=== PATIENT | female | born 1970 | race Caucasian/White ===

== ENCOUNTER 2017-10-10 10:14 | Day surgery (SDC) | payer OTHER | END 2017-10-10 14:02 | disposition home or self-care (01) | LOC: SDC 10:14 | PROVIDERS: ATTEND Family Medicine | DX: Z53.9 Procedure and treatment not carried out, unspecified reason (principal) ==

== ENCOUNTER 2017-12-17 06:49 | Day surgery (SDC) | payer OTHER ==
[~2017-12-17 06:49] MED LIST: Lactated Ringers 1,000 ML IV SCH
[2017-12-17] MEDS ORDERED: DIPRIVAN 200 MG/20 ML IV ONE (06:50)
[2017-12-17] MEDS ORDERED: Ketamine HCl 50 MG/ML IV ONE (06:50)
[2017-12-17 08:40] VITALS: BP 126/68; PULSE 81
[2017-12-17 09:22] VITALS: O2SAT 96
--- NOTE | 2017-12-17 10:15 | OP ---
SURGERY DATE/TIME: 12/17/2017 0800 PREOPERATIVE DIAGNOSIS: Epigastric abdominal pain. POSTOPERATIVE DIAGNOSIS: Mild gastritis. PROCEDURE: EGD. SURGEON: Moustapha Aguilar M.D. ANESTHESIA: MAC by Thang Smith CRNA. ESTIMATED BLOOD LOSS: Minimal. SPECIMENS: Two cold forceps biopsies were taken from the gastric antrum and sent for Helicobacter pylori testing. DESCRIPTION OF PROCEDURE: After informed written consent was obtained, the patient was taken to the endoscopy suite. She underwent monitored anesthesia and a bite block was inserted. The endoscope was inserted into the posterior oropharynx and under direct visualization the esophagus was easily traversed. There were no obvious mucosal abnormalities. Upon entering the stomach there was a normal rugated gastric mucosa. There were some mild gastritis-type changes in the gastric antrum but no obvious ulcerations or bleeding were present. Pylorus was traversed and the first and second portions of the duodenum within normal limits. Two cold forceps biopsies were taken from the gastric antrum and sent for Helicobacter pylori testing with minimal bleeding from the sites following removal. No other gross mucosal abnormalities were appreciable on withdrawal. The scope was removed and the patient was transferred to the recovery room in excellent condition. She had been advised to follow up in one week for pathology results.
== END 2017-12-17 09:37 | disposition home or self-care (01) ==
LOC: SDC 06:49
PROVIDERS: ATTEND Family Medicine
PROC: 0DB78ZX Excision of Stomach, Pylorus, Via Natural or Artificial Opening Endoscopic, Diagnostic (ICD-10-PCS; principal; 2017-12-17)
DX: K29.70 Gastritis, unspecified, without bleeding (principal); E11.9 Type 2 diabetes mellitus without complications; I25.10 Atherosclerotic heart disease of native coronary artery without angina pectoris
CPT/HCPCS: 88305; J2704

== ENCOUNTER 2018-01-17 04:40 | Emergency (ER) | payer OTHER ==
[2018-01-17] MEDS ORDERED: Sodium Chloride 0.9% 1000 ML 1,000 ML IV SCH (05:30)
[2018-01-17] MEDS ORDERED: Zofran 4 MG/2 ML VIAL IV ONE (05:32)
--- NOTE | 2018-01-17 05:32 | ERPHSYRPT ---
- History of Present Illness Historian: patient Exam Limitations: clinical condition Patient Subjective Stated Complaint: pt states she has been nauseated since 0100 and is having pain along her spine accompanied by a warm sensation up her spine. Triage Nursing Assessment: pt alert and oriented, asnwers questions approp. pt ambulatory with steady gait ntoed. respirations nonlabored. abd soft, obese. pt reports tenderness in rt upper quad with light palpation. bowel sounds present. Timing/Duration: today Activities at Onset: none Quality: sharpness Abdominal Pain Onset Location: epigastric Pain Radiation: no radiation Severity of Pain-Max: moderate Severity of Pain-Current: moderate Modifying Factors: Improves With: nothing Associated Symptoms: back Previous symptoms: same symptoms as today Hx Tetanus, Diphtheria Vaccination/Date Given: Yes Hx Influenza Vaccination/Date Given: No Hx Pneumococcal Vaccination/Date Given: No Immunizations Up to Date: Yes <MARLENY GOMEZ - Last Filed: 01/17/18 06:56> <JEYSON DOS SANTOS - Last Filed: 01/17/18 07:44> - History of Present Illness Time Seen by Provider: 01/17/18 05:03 Physician History: PATIENT WITH A HISTORY OF TYPE 2 DIABETES AND CORONARY ARTERY DISEASE WHO COMPLAINS OF ACUTE ONSET OF NAUSEA SINCE 1PM ASSOCIATED WITH LEFT LOWER ABDOMINAL PAINS. PATIENT ALSO COMPLAINS OF UPPER ABDOMINAL PAIN. PATIENT 1 MONTH POST UPPER ENDOSCOPY WITH GASTRIC BIOPSY FOR CHRONIC GASTRITIS, NO EVIDENCE OF H PYLORI. (MARLENY GOMEZ) Allergies/Adverse Reactions: aspirin Allergy (Mild, Verified 01/17/18 05:09) Sulfa (Sulfonamide Antibiotics) Allergy (Mild, Verified 01/17/18 05:09) shellfish derived Allergy (Verified 01/17/18 05:09) Itching rash Home Medications: Liraglutide [Victoza 2-Luis] 1.8 mg SQ DAILY 11/02/14 [History] Losartan Potassium 25 mg PO DAILY 08/02/15 [History] Cetirizine HCl 10 mg PO DAILY 05/02/16 [History] Diltiazem HCl [Diltiazem 12Hr ER] 60 mg PO TID 12/11/17 [History] Insulin Glargine,Hum.rec.anlog [Lantus] 25 unit SQ HS 12/11/17 [History] Insulin Lispro [Humalog Kwikpen U-100] 16 unit SQ TIDWMEALS 12/11/17 [History] Linagliptin [Tradjenta] 5 mg PO DAILY 12/11/17 [History] Pravastatin Sodium 40 mg PO DAILY 12/11/17 [History] raNITIdine HCl [Ranitidine HCl] 150 mg PO BID 12/11/17 [History] Metformin HCl 500 mg [Glucophage 500 MG] 500 mg PO BIDWM 01/17/18 [History ] - Review of Systems Constitutional: No Fever, No Chills Eyes: No Symptoms Ears, Nose, & Throat: No Symptoms Respiratory: No Cough, No Dyspnea Cardiac: No Chest Pain, No Edema, No Syncope Abdominal/Gastrointestinal: Abdominal Pain, Nausea, No Vomiting, No Diarrhea Genitourinary Symptoms: No Dysuria Musculoskeletal: Back Pain, No Neck Pain Skin: No Symptoms, No Rash Neurological: No Symptoms, No Dizziness, No Focal Weakness, No Sensory Changes Psychological: No Symptoms Endocrine: No Symptoms All Other Systems: Reviewed and Negative <MARLENY GOMEZ - Last Filed: 01/17/18 06:56> - Past Medical History Pertinent Past Medical History: Yes Neurological History: No Pertinent History ENT History: No Pertinent History Cardiac History: Arrhythmia, Coronary Artery Disease, High Cholesterol, Hypertension, Myocardial Infarction ([place]) Respiratory History: No Pertinent History Endocrine Medical History: Diabetes Type II Musculoskeletal History: No Pertinent History GI Medical History: No Pertinent History History: No Pertinent History Psycho-Social History: No Pertinent History Female Reproductive Disorders: No Pertinent History Other Medical History: "spots on the thyroid" - Past Surgical History Past Surgical History: Yes Neuro Surgical History: No Pertinent History Cardiac: Cardiac Catheterization, Cardiac Stent, Pacemaker Respiratory: No Pertinent History Gastrointestinal: Cholecystectomy Genitourinary: No Pertinent History Musculoskeletal: No Pertinent History Female Surgical History: Section Other Surgical History: HEART CATH AND STENT IN MAY 2013 - Social History Smoking Status: Current some day smoker How long have you smoked: 39 yrs Exposure to second hand smoke: Yes Drug Use: none Patient Lives Alone: No - Female History Hx Last Menstrual Period: post Hx Now: No <MARLENY GOMEZ - Last Filed: 01/17/18 06:56> - Physical Exam General Appearance: no apparent distress, alert Eye Exam: PERRL/EOMI, eyes nml inspection Ears, Nose, Throat Exam: normal ENT inspection, pharynx normal, moist mucous membranes Neck Exam: normal inspection, non-tender, supple, full range of motion Respiratory Exam: normal breath sounds, lungs clear, No respiratory distress Cardiovascular Exam: regular rate/rhythm, normal heart sounds Gastrointestinal/Abdomen Exam: soft, normal bowel sounds, tenderness (MODERATE EPIGASTRIC TENDERNESS, NO GUARDING OR REBOUND TENDERNESS), No mass Back Exam: normal inspection, normal range of motion, point tenderness (OVER LEFT LOWER PELVIS ADJACENT TO LEFT SACROILIAC JOINT), other (NO CVA TENDERNESS, NO THORACIC OR LUMBAR TENDERNESS), No CVA tenderness, No vertebral tenderness Extremity Exam: normal inspection, normal range of motion, pelvis stable Neurologic Exam: alert, oriented x 3, cooperative, normal mood/affect, nml cerebellar function, sensation nml, No motor deficits Skin Exam: normal color, warm, dry SpO2 Interpretation: normal SpO2: 95 Oxygen Delivery: Room Air <MARLENY GOMEZ - Last Filed: 01/17/18 06:56> - Nursing Vital Signs Nursing Vital Signs: Initial Vital Signs Temperature 98.1 F 01/17/18 04:59 Pulse Rate 100 H 01/17/18 04:59 Respiratory Rate 18 01/17/18 04:59 Blood Pressure 142/91 01/17/18 04:59 O2 Sat by Pulse Oximetry 95 01/17/18 04:59 Pain Scale Pain Intensity 5 - Course Nursing assessment & vital signs reviewed: Yes - CT Exams Abdomen/Pelvis CT Interpretation: Discussed w/radiologist, Other (no obstruction, +degen spine , nap) <JEYSON DOS SANTOS - Last Filed: 01/17/18 07:44> Ordered Tests: Active Orders 24 hr Category Date Time Status Clean Catch Urine Specimen STAT Care 01/17/18 05:30 Active IV Insertion STAT Care 01/17/18 05:30 Active ABDOMEN AND PELVIS W/0 CONTRAS [CT] Stat Exams 01/17/18 05:30 Taken AMYLASE Stat Lab 01/17/18 05:25 Completed CBC W DIFF Stat Lab 01/17/18 05:25 Completed CMP Stat Lab 01/17/18 05:25 Completed LIPASE Stat Lab 01/17/18 05:25 Completed UA W/RFX UR CULTURE Stat Lab 01/17/18 07:30 Completed Urine Triage Profile Stat Lab 01/17/18 05:30 Ordered Medication Summary Generic Name Dose Route Start Last Admin Trade Name Freq PRN Reason Stop Dose Admin Sodium Chloride 1,000 mls @ 50 mls/hr 01/17/18 05:30 01/17/18 05:45 Sodium Chloride 0.9% 1000 Ml IV 02/16/18 05:29 50 mls/hr .Q20H NADINE Administration Discontinued Medications Generic Name Dose Route Start Last Admin Trade Name Freq PRN Reason Stop Dose Admin Ondansetron HCl 4 mg 01/17/18 05:32 01/17/18 05:45 Zofran 4 Mg/2 Ml Vial IV 01/17/18 05:33 4 mg STAT ONE Administration Ondansetron HCl Confirm 01/17/18 05:42 Zofran 4 Mg/2 Ml Vial Administered 01/17/18 05:43 Dose 4 mg .ROUTE .[facility] [employer]-MED ONE Lab/Rad Data: Laboratory Result Diagrams 01/17/18 05:25 01/17/18 05:25 Laboratory Results 01/17/18 01/17/18 01/17/18 Range/Units 07:30 05:25 05:25 WBC 8.7 (4.0-10.5) K/mm3 RBC 5.17 (4.1-5.4) M/mm3 Hgb 13.4 (12.0-16.0) gm/dl Hct 41.0 (35-47) % MCV 79.3 (78-100) fl MCH 25.9 L (26-32) pg MCHC 32.7 (32-36) g/dl RDW 14.7 H (11.5-14.0) % Plt Count 214 (150-450) K/mm3 MPV 10.7 H (6-9.5) fl Gran % 78.9 H (36.0-66.0) % Eos # (Auto) 0.05 (0-0.5) Absolute Lymphs (auto) 1.41 (1.0-4.6) Absolute Monos (auto) 0.37 (0.0-1.3) Lymphocytes % 16.2 L (24.0-44.0) % Monocytes % 4.2 (0.0-12.0) % Eosinophils % 0.6 (0.00-5.0) % Basophils % 0.1 (0.0-0.4) % Absolute Granulocytes 6.89 (1.4-6.9) Basophils # 0.01 (0-0.4) Sodium 140 (137-145) mmol/L Potassium 3.9 (3.5-5.1) mmol/L Chloride 103 (98-107) mmol/L Carbon Dioxide 25 (22-30) mmol/L Anion Gap 15.2 H (5-15) MEQ/L BUN 19 H (7-17) mg/dL Creatinine 0.67 (0.52-1.04) mg/dL Estimated GFR > 60.0 ML/MIN Glucose 221 H (74-106) mg/dL Calcium 9.9 (8.4-10.2) mg/dL Total Bilirubin 0.30 (0.2-1.3) mg/dL AST 15 (14-36) U/L ALT 17 (0-35) U/L Alkaline Phosphatase 107 (38-126) U/L Serum Total Protein 7.0 (6.3-8.2) g/dL Albumin 4.0 (3.5-5.0) g/dL Amylase 40 (30-110) U/L Lipase 71 (23-300) U/L Ur Collection Type VOID Urine Color YELLOW (YELLOW) Urine Appearance CLEAR (CLEAR) Urine pH 5.0 (5-6) Ur Specific [place] 1.020 (1.005-1.025) Urine Protein NEGATIVE (Negative) Urine Ketones NEGATIVE (NEGATIVE) Urine Blood NEGATIVE (0-5) Fredis/ul Urine Nitrite NEGATIVE (NEGATIVE) Urine Bilirubin NEGATIVE (NEGATIVE) Urine Urobilinogen NORMAL (0-1) mg/dL Ur Leukocyte Esterase NEGATIVE (NEGATIVE) Urine Culture Reflexed NO (NO) Urine Glucose 100 (NEGATIVE) mg/dL Specimen Received 01/17/18 0730 <MARLENY GOMEZ - Last Filed: 01/17/18 06:56> - Progress Progress: unchanged Discussed with : Emily Will see patient in: office Counseled pt/family regarding: lab results, diagnosis, need for follow-up, rad results <JEYSON DOS SANTOS - Last Filed: 01/17/18 07:44> - Progress Progress Note: 01/17/18 06:56, IV NORMAL SALINE AT 50ML/HR, ZOFRAN 4MG IV, PATIENT CARE ENDORSED TO DR DOS SANTOS AT 0700 FOR DISPOSITION (MARLENY GOMEZ) <MARLENY GOMEZ - Last Filed: 01/17/18 06:56> - Departure Time of Disposition: 07:41 Departure Disposition: Home Critical Care Time: No <JEYSON DOS SANTOS - Last Filed: 01/17/18 07:44> - Departure Clinical Impression: Back pain Qualifiers: Back pain location: low back pain Chronicity: unspecified Back pain laterality : unspecified Sciatica presence: unspecified whether sciatica present Qualified Code(s): M54.5 - Low back pain Condition: Stable Referrals: GABBY SEAY [Primary Care Provider] - Instructions: Low Back Pain (DC) Additional Instructions: rest, tramadol warnings, see your doctor 1 to 2 days, return if worse Prescriptions: Tramadol HCl 50 mg [Ultram 50 mg] 50 mg PO Q6H PRN PRN 4 Days #10 tablet PRN Reason: Mild To Moderate Pain
[2018-01-17] MEDS ORDERED: Sodium Chloride 0.9% 1000 ML 1,000 ML ONE (05:42)
[2018-01-17] MEDS ORDERED: Zofran 4 MG/2 ML VIAL ONE (05:42)
[2018-01-17 05:47] LABS: BASOPHIL % 0.1 % (0.0-0.4); Basophil (Absolute #) 0.01 (0-0.4); Eosinophil % 0.6 % (0.00-5.0); Eosinophil (Absolute #) 0.05 (0-0.5); Granulocyte Absolute (ANC) 6.89 (1.4-6.9); Granulocytes % 78.9 % (36.0-66.0); Hemoglobin 13.4 gm/dl (12.0-16.0); Lymphocyte (Absolute #) 1.41 (1.0-4.6); Lymphocytes % 16.2 % (24.0-44.0); Mean Cell Volume 79.3 fl (78-100); Mean Corpuscular Hemoglobin 25.9 pg (26-32); Mean Corpuscular Hgb Concent. 32.7 g/dl (32-36); Mean Platelet Volume 10.7 fl (6-9.5); Monocyte (Absolute #) 0.37 (0.0-1.3); Monocytes % 4.2 % (0.0-12.0); Platelet Count 214 K/mm3 (150-450); Red Blood Count 5.17 M/mm3 (4.1-5.4); Red Cell Distribution Width 14.7 % (11.5-14.0); White Blood Count 8.7 K/mm3 (4.0-10.5)
[2018-01-17 06:00] LABS: ALKALINE PHOSPHATASE 107 U/L (38-126); AMYLASE 40 U/L (30-110); ANION GAP 15.2 MEQ/L (5-15); BLOOD UREA NITROGEN 19 mg/dL (7-17); CHLORIDE 103 mmol/L (98-107); Calcium 9.9 mg/dL (8.4-10.2); Carbon Dioxide 25 mmol/L (22-30); Creatinine 1 0.67 mg/dL (0.52-1.04); Glucose 221 mg/dL (74-106); LIPASE 71 U/L (23-300); Potassium 3.9 mmol/L (3.5-5.1); SGOT/AST 15 U/L (14-36); SODIUM 140 mmol/L (137-145)
[2018-01-17 06:07] LABS: SGPT/ALT 17 U/L (0-35)
[2018-01-17 06:59] VITALS: O2SAT 95
[2018-01-17 07:34] LABS: Appearance CLEAR (CLEAR); Glucose 100 mg/dL (NEGATIVE); Leukocyte Esterase NEGATIVE (NEGATIVE); Nitrite NEGATIVE (NEGATIVE); Protein,Urine Dip NEGATIVE (Negative)
[2018-01-17 07:35] LABS: Bilirubin NEGATIVE (NEGATIVE); Blood NEGATIVE Ery/ul (0-5); Ketones NEGATIVE (NEGATIVE); Urobilinogen NORMAL mg/dL (0-1)
[2018-01-17 07:58] LABS: Amphetamine,Urine NEGATIVE (NEGATIVE); Barbiturate,Urine NEGATIVE (NEGATIVE); Benzodiazepine,Urine NEGATIVE (NEGATIVE); Cocaine,Urine NEGATIVE (NEGATIVE); Methadone,Urine NEGATIVE (NEGATIVE); Opiate,Urine NEGATIVE (NEGATIVE); PCP,Urine NEGATIVE (NEGATIVE); THC,Urine NEGATIVE (NEGATIVE)
[2018-01-17 07:59] VITALS: BP 110/73; PULSE 86
--- NOTE | 2018-01-17 08:45 | XRAY ---
Indication: Right upper quadrant and left back pain. Nausea. Multiple contiguous axial images obtained through the abdomen and pelvis without contrast as ordered. Comparison: August 03, 2015. Lung bases now demonstrates minimal left base fibrosis/scarring. No infiltrate or effusion. Heart is not enlarged. Stomach is distended with food. Noncontrasted stomach and bowel loops appear nonobstructed. Appendix not seen. Again cholecystectomy. No free fluid/air. Remaining liver, pancreas, spleen, adrenal glands, kidneys, ureters, bladder, uterus, and aorta appear unremarkable for noncontrast exam. Osseous structures intact again with lumbosacral junction degenerative changes. Impression: CT abdomen/pelvis without contrast exam again negative. Comment: Preliminary interpretation was made by [facility]. No discrepancy. CT DI 28.13
== END 2018-01-17 07:59 | disposition home or self-care (01) ==
LOC: ED 04:40
DX: M54.5 Low back pain (principal); R11.0 Nausea; R10.30 Lower abdominal pain, unspecified; R10.10 Upper abdominal pain, unspecified; E11.9 Type 2 diabetes mellitus without complications; Z79.4 Long term (current) use of insulin; Z79.899 Other long term (current) drug therapy
CPT/HCPCS: 36000; 36415; 74176; 80053; 80307; 81002; 82150; 83690; 85025; 96360; 96361; 96374; 99284; J2405

== ENCOUNTER 2019-02-09 00:36 | Emergency (ER) | payer MEDICAID, OTHER ==
[2019-02-09 00:55] VITALS: BP 154/103; PULSE 94; O2SAT 95
[2019-02-09] MEDS ORDERED: LOTRIMIN CREAM 30 GM TP STA (01:01)
--- NOTE | 2019-02-09 01:19 | ERPHSYRPT ---
- History of Present Illness Source: patient Exam Limitations: no limitations Patient Subjective Stated Complaint: Pt c/o rash like itching leasions that started on top of cam feet 2 days ago, spreading up to lower leg. Triage Nursing Assessment: pink/warm/dry, resp easy, a&ox4, steady gait, red rash with difinitive borders noted. Physician History: Pt is a 48 y/o female that presented to the ED with rash on her feet and ankles that is extremly itching. Pt states, she does have dogs living with her. Pt denies all other complains. Timing/Duration: day(s) Quality: itchy Severity: moderate Location: feet Possible Causes: other (pets) Associated Symptoms: rash Allergies/Adverse Reactions: aspirin Allergy (Mild, Verified 02/09/19 00:44) Sulfa (Sulfonamide Antibiotics) Allergy (Mild, Verified 02/09/19 00:44) shellfish derived Allergy (Verified 02/09/19 00:44) Itching rash Home Medications: Liraglutide [Victoza 2-Luis] 1.8 mg SQ DAILY 11/02/14 [History] Losartan Potassium 25 mg PO DAILY 08/02/15 [History] Cetirizine HCl 10 mg PO DAILY 05/02/16 [History] Diltiazem HCl [Diltiazem 12Hr ER] 60 mg PO TID 12/11/17 [History] Insulin Glargine,Hum.rec.anlog [Lantus] 25 unit SQ HS 12/11/17 [History] Insulin Lispro [Humalog Kwikpen U-100] 16 unit SQ TIDWMEALS 12/11/17 [History] Linagliptin [Tradjenta] 5 mg PO DAILY 12/11/17 [History] Pravastatin Sodium 40 mg PO DAILY 12/11/17 [History] raNITIdine HCl [Ranitidine HCl] 150 mg PO BID 12/11/17 [History] Metformin HCl 500 mg [Glucophage 500 MG] 500 mg PO BIDWM 01/17/18 [History ] Hx Tetanus, Diphtheria Vaccination/Date Given: No Hx Influenza Vaccination/Date Given: No Hx Pneumococcal Vaccination/Date Given: No Immunizations Up to Date: No - Review of Systems Constitutional: No Fever, No Chills Musculoskeletal: No Back Pain, No Neck Pain Skin: Pruritis, Other (rash) Neurological: No Dizziness, No Focal Weakness, No Sensory Changes - Past Medical History Pertinent Past Medical History: Yes Neurological History: No Pertinent History ENT History: No Pertinent History Cardiac History: Arrhythmia, Coronary Artery Disease, High Cholesterol, Hypertension, Myocardial Infarction ([place]) Respiratory History: No Pertinent History Endocrine Medical History: Diabetes Type II Musculoskeletal History: No Pertinent History GI Medical History: No Pertinent History History: No Pertinent History Psycho-Social History: No Pertinent History Female Reproductive Disorders: No Pertinent History Other Medical History: "spots on the thyroid" - Past Surgical History Past Surgical History: Yes Neuro Surgical History: No Pertinent History Cardiac: Cardiac Catheterization, Cardiac Stent, Pacemaker Respiratory: No Pertinent History Gastrointestinal: Cholecystectomy Genitourinary: No Pertinent History Musculoskeletal: No Pertinent History Female Surgical History: Section Other Surgical History: HEART CATH AND STENT IN MAY 2013 - Social History Smoking Status: Current every day smoker How long have you smoked: 39 yrs Exposure to second hand smoke: Yes Drug Use: none Patient Lives Alone: No - Female History Hx Now: No - Nursing Vital Signs Nursing Vital Signs: Initial Vital Signs Temperature 98.1 F 02/09/19 00:44 Pulse Rate 94 H 02/09/19 00:44 Respiratory Rate 16 02/09/19 00:44 Blood Pressure 154/103 02/09/19 00:44 O2 Sat by Pulse Oximetry 95 02/09/19 00:44 Pain Scale Pain Intensity 0 - Physical Exam General Appearance: no apparent distress, alert Skin Exam: other (rash that is red ring with redness and central clearing, over ankles and frrt) SpO2: 95 Ordered Tests: Medication Summary Discontinued Medications Generic Name Dose Route Start Last Admin Trade Name Wandy PRN Reason Stop Dose Admin Clotrimazole 30 gm 02/09/19 01:01 02/09/19 01:06 Lotrimin Cream 30 Gm TP 02/09/19 01:02 30 gm STAT STA Administration - Progress Progress: unchanged Progress Note: 02/09/19 01:17 Pt was seen and examined. Rash that looks like ringworm. Pt will have Lotrimin placed on areas and she should continue pplying TID as long as any rash and itching continues. Pt should check her pets as well. Discussed with : Emily Will see patient in: office Counseled pt/family regarding: need for follow-up - Departure Departure Disposition: Home Clinical Impression: Ringworm of foot Condition: Stable Critical Care Time: No Referrals: GABBY SEAY [Primary Care Provider] - Additional Instructions: Apply Lotrimin cream on lesions three times daily. F/U with PCP. Check your pets as well and treat as needed.
== END 2019-02-09 01:27 | disposition home or self-care (01) ==
LOC: ED 00:36
DX: B35.3 Tinea pedis (principal)
CPT/HCPCS: 99283; A9270-GY

== ENCOUNTER 2020-01-07 23:07 | Emergency (ER) | payer OTHER ==
--- NOTE | 2020-01-07 23:10 | ERPHSYRPT ---
- History of Present Illness Time Seen by Provider: 01/07/20 23:10 Source: patient Physician History: This is a 49-year-old obese diabetic female who stated that she began coughing yesterday and that resolved. This morning she began having mild headache and has worsened throughout the day. She also has had a sore throat. She has not had a fever. She is not short of breath. Again, her cough has resolved. She has no nausea vomiting or diarrhea. The headache is described more as a pressure in the sinuses. She also states she has bilateral earaches. Timing/Duration: yesterday Quality: aching Head Pain Location: frontal (Left side) Severity of Pain-Max: moderate Severity of Pain-Current: moderate Recent Head Trauma: no recent headache/trauma Modifying Factors: Improves With: exposure to light, noise Associated Symptoms: nasal congestion, sensitive to light, No fever/chills, No loss of consciousness, No nausea/vomiting, No neck pain, No stiff neck Previous symptoms: no prior history Allergies/Adverse Reactions: aspirin Allergy (Mild, Verified 01/07/20 23:30) Sulfa (Sulfonamide Antibiotics) Allergy (Mild, Verified 01/07/20 23:30) shellfish derived Allergy (Verified 01/07/20 23:30) Itching rash Home Medications: Losartan Potassium 25 mg PO DAILY 08/02/15 [History] Cetirizine HCl 10 mg PO DAILY 05/02/16 [History] Diltiazem HCl [Diltiazem 12Hr ER] 60 mg PO TID 12/11/17 [History] Pravastatin Sodium 40 mg PO DAILY 12/11/17 [History] raNITIdine HCL [Ranitidine HCl] 150 mg PO BID 12/11/17 [History] Metformin HCl 500 mg [Glucophage 500 MG] 500 mg PO BID 01/17/18 [History] Famotidine 20 mg [Pepcid 20 MG] 20 mg PO BID 01/07/20 [History] Insulin Glargine,Hum.rec.anlog [Basaglar Kwikpen U-100] 50 unit SQ HS 01/07/20 [ History] Hx Tetanus, Diphtheria Vaccination/Date Given: No Hx Influenza Vaccination/Date Given: No Hx Pneumococcal Vaccination/Date Given: No Travel Risk - International Travel Have you traveled outside of the country in past 3 weeks: No Have you or anyone close to you been diagnosed with or: No Do your reside in a community with a known COVID-19 case?: Yes If Yes where:: [facility] - Coronavirus Screening Has patient experienced Coronavirus symptoms: No - Review of Systems Constitutional: No Symptoms Eyes: No Symptoms Ears, Nose, & Throat: Ear Pain (Bilateral), Throat Pain (Mild) Respiratory: Cough (Day. Now resolved), No Dyspnea Cardiac: No Chest Pain Abdominal/Gastrointestinal: No Symptoms Genitourinary Symptoms: No Symptoms Musculoskeletal: No Symptoms Skin: No Symptoms Neurological: No Symptoms Psychological: No Symptoms Endocrine: No Symptoms Hematologic/Lymphatic: No Symptoms Immunological/Allergic: No Symptoms All Other Systems: Reviewed and Negative - Past Medical History Pertinent Past Medical History: Yes Neurological History: No Pertinent History ENT History: No Pertinent History Cardiac History: Arrhythmia, Coronary Artery Disease, High Cholesterol, Hypertension, Myocardial Infarction ([place]) Respiratory History: No Pertinent History Endocrine Medical History: Diabetes Type II Musculoskeletal History: No Pertinent History GI Medical History: No Pertinent History History: No Pertinent History Psycho-Social History: No Pertinent History Female Reproductive Disorders: No Pertinent History Other Medical History: "spots on the thyroid" - Past Surgical History Past Surgical History: Yes Neuro Surgical History: No Pertinent History Cardiac: Cardiac Catheterization, Cardiac Stent, Pacemaker Respiratory: No Pertinent History Gastrointestinal: Cholecystectomy Genitourinary: No Pertinent History Musculoskeletal: No Pertinent History Female Surgical History: Section Other Surgical History: HEART CATH AND STENT IN MAY 2013 - Social History Smoking Status: Current every day smoker How long have you smoked: 39 yrs Exposure to second hand smoke: Yes Drug Use: none Patient Lives Alone: No - Nursing Vital Signs Nursing Vital Signs: Initial Vital Signs Temperature 98.0 F 01/07/20 23:19 Pulse Rate 94 H 01/07/20 23:19 Respiratory Rate 18 01/07/20 23:19 Blood Pressure 129/51 01/07/20 23:19 O2 Sat by Pulse Oximetry 95 01/07/20 23:19 Pain Scale Pain Intensity 8 - Physical Exam General Appearance: mild distress, alert, anxiety Eye Exam: PERRL/EOMI, eyes nml inspection Ears, Nose, Throat Exam: normal ENT inspection, moist mucous membranes Neck Exam: normal inspection, non-tender, supple, full range of motion Respiratory Exam: normal breath sounds, lungs clear, airway intact, No chest tenderness, No respiratory distress Cardiovascular Exam: regular rate/rhythm, normal heart sounds, normal peripheral pulses Gastrointestinal/Abdominal Exam: soft, normal bowel sounds, No tenderness Back Exam: normal inspection, normal range of motion, No CVA tenderness, No vertebral tenderness Extremity Exam: normal inspection, normal range of motion, pelvis stable Mental Status Exam: alert, oriented x 3, 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 Exam: normal hearing, normal speech, PERRL Coordination/Gait Exam: normal finger to nose, normal gait Motor/Sensory Exam: no motor deficit, no sensory deficit, no pronator drift Skin Exam: normal color, warm, dry Lymphatic Exam: No adenopathy SpO2 Interpretation: normal O2 Delivery: Room Air - Course Nursing assessment & vital signs reviewed: Yes Ordered Tests: Medication Summary Generic Name Dose Route Start Last Admin Trade Name Freq PRN Reason Stop Dose Admin Prednisone 20 mg 01/08/20 23:40 Deltasone 20 Mg PO 01/08/20 23:41 STAT ONE Discontinued Medications Generic Name Dose Route Start Last Admin Trade Name Freq PRN Reason Stop Dose Admin Hydrocodone Bitart/Acetaminophen 10 ml 01/07/20 23:40 Hydrocodone-Acetamin 2.5-108/5 Ml Solution PO 01/07/20 23:41 STAT STA Azithromycin 500 mg 01/07/20 23:40 Zithromax 250 Mg Tablet PO 01/07/20 23:41 STAT ONE - Progress Progress: re-examined, unchanged Air Movement: good Blood Culture(s) Obtained: No Antibiotics given: Yes Counseled pt/family regarding: lab results, diagnosis, need for follow-up - Departure Departure Disposition: Home Clinical Impression: Upper respiratory infection, Sinusitis Condition: Stable Critical Care Time: No Additional Instructions: Drink plenty of fluids. Take your medication as prescribed. Monitor your blood glucose level closely while taking the steroids. Follow-up with your primary care physician for persistent symptoms. Prescriptions: Azithromycin 250 mg [Zithromax 250 MG TABLET] 250 mg PO ZPACK #6 tablet Hydrocodone Bit/Acetaminophen [Hydrocodone-Acetaminophen Soln] 10 ml PO Q6H # 120 ml Prednisone 10 mg [Deltasone 10 mg] 10 mg PO TID #12 tablet
[2020-01-07] MEDS ORDERED: Zithromax 250 MG TABLET PO ONE (23:40)
[2020-01-07] MEDS ORDERED: HYDROCODONE-ACETAMIN 2.5-108/5 ML SOLUTION PO STA (23:40)
[2020-01-07] MEDS ORDERED: HYDROCODONE-ACETAMIN 2.5-108/5 ML SOLUTION ONE (23:45)
[2020-01-07] MEDS ORDERED: Zithromax 250 MG TABLET ONE (23:45)
[2020-01-07] MEDS ORDERED: DELTASONE 20 MG ONE (23:46)
[2020-01-08 00:06] VITALS: BP 116/66
[2020-01-08 00:21] VITALS: PULSE 92; O2SAT 95
[2020-01-08] MEDS ORDERED: DELTASONE 20 MG PO ONE (23:40)
== END 2020-01-08 00:20 | disposition home or self-care (01) ==
LOC: ED 23:07
DX: J06.9 Acute upper respiratory infection, unspecified (principal); J32.9 Chronic sinusitis, unspecified; I25.10 Atherosclerotic heart disease of native coronary artery without angina pectoris; E78.00 Pure hypercholesterolemia, unspecified; E11.9 Type 2 diabetes mellitus without complications; I10 Essential (primary) hypertension; I25.2 Old myocardial infarction; Z95.0 Presence of cardiac pacemaker; Z72.0 Tobacco use
CPT/HCPCS: 99283; A9270-GY

== ENCOUNTER 2020-05-09 15:16 | Emergency (ER) | payer OTHER ==
--- NOTE | 2020-05-09 16:07 | ERPHSYRPT ---
- History of Present Illness Time Seen by Provider: 05/09/20 15:36 Source: patient Exam Limitations: physical impairment Patient Subjective Stated Complaint: Back pain Triage Nursing Assessment: Patient brought back to ED via w/c and transferred se lf to bed. Patient A+O X 3. Patient's skin pink, warm and dry. Patient complains of mid back pain after moving wrong in her bed Friday. Patient states her pain is constant, sharp pain in the mid back area close to spine 8/10. No visible injuries or bruising noted. Physician History: Patient is a 49-year-old female who presents to our ED for evaluation of thoracolumbar pain. Pain started 4 days ago. Patient states she was in bed and "she twisted wrong" when her pain started. Pain described as a sharp pain that is well localized. Pain occurs with palpation and movement. Pain improved with rest. No blunt trauma. No fever. No change in bowel bladder function. No saddle anesthesia. No recent back procedures. No chest pain or shortness of breath. Pain is mild to moderate in intensity. Pain improved with rest. Patient voices no other complaints concerns at this time. Timing/Duration: day(s) (.) Method of Injury: twisted Quality: sharp Back Pain Location: T-spine, lumbar spine (Pain is at the junction of the thoracolumbar spine. Pain worse at the right paraspinal musculature.) Severity of Pain-Max: moderate Severity of Pain-Current: mild Modifying Factors: Improves With: immobilization, movement, other (She does not take any pain medication.) Associated Symptoms: No fever, No chills, No sweating, No urinary incontinence, No loss of bowel control, No constipation, No nausea, No vomiting, No problems urinating, No light-headedness, No dizziness, No numbness in legs/feet, No weakness, No sensory/motor loss, No tingling in legs/feet, No lower back pain Previous symptoms: same symptoms as today Allergies/Adverse Reactions: aspirin Allergy (Mild, Verified 05/09/20 15:30) Sulfa (Sulfonamide Antibiotics) Allergy (Mild, Verified 05/09/20 15:30) shellfish derived Allergy (Verified 05/09/20 15:30) Itching rash Home Medications: Cetirizine HCl 10 mg PO DAILY 05/02/16 [History] Diltiazem HCl [Diltiazem 12Hr ER] 60 mg PO TID 12/11/17 [History] Pravastatin Sodium 40 mg PO DAILY 12/11/17 [History] Metformin HCl 500 mg [Glucophage 500 MG] 500 mg PO BID 01/17/18 [History] Famotidine 20 mg [Pepcid 20 MG] 20 mg PO BID 01/07/20 [History] Insulin Glargine,Hum.rec.anlog [Basaglar Santosikpen U-100] 50 unit SQ HS 01/07/20 [History] Hx Tetanus, Diphtheria Vaccination/Date Given: No Hx Influenza Vaccination/Date Given: No Hx Pneumococcal Vaccination/Date Given: No Immunizations Up to Date: Yes Travel Risk - International Travel Have you traveled outside of the country in past 3 weeks: No - Coronavirus Screening Are you exhibiting any of the following symptoms?: No Close contact with a COVID-19 positive Pt in past 14-21 Days: No - Review of Systems Constitutional: No Symptoms, No Fever, No Chills Eyes: No Symptoms Ears, Nose, & Throat: No Symptoms Respiratory: No Symptoms, No Cough, No Dyspnea Cardiac: No Symptoms, No Chest Pain, No Edema, No Syncope Abdominal/Gastrointestinal: No Symptoms, No Abdominal Pain, No Nausea, No Vomiting, No Diarrhea Genitourinary Symptoms: No Symptoms, No Dysuria Musculoskeletal: No Symptoms, No Back Pain, No Neck Pain Skin: No Symptoms, No Rash Neurological: No Symptoms, No Dizziness, No Focal Weakness, No Sensory Changes Psychological: No Symptoms Endocrine: No Symptoms Hematologic/Lymphatic: No Symptoms Immunological/Allergic: No Symptoms All Other Systems: Reviewed and Negative - Past Medical History Pertinent Past Medical History: Yes Neurological History: No Pertinent History ENT History: No Pertinent History Cardiac History: Arrhythmia, Coronary Artery Disease, High Cholesterol, Hypertension, Myocardial Infarction (AR) Respiratory History: No Pertinent History Endocrine Medical History: Diabetes Type II Musculoskeletal History: No Pertinent History GI Medical History: No Pertinent History History: No Pertinent History Psycho-Social History: No Pertinent History Female Reproductive Disorders: No Pertinent History Other Medical History: "spots on the thyroid" - Past Surgical History Past Surgical History: Yes Neuro Surgical History: No Pertinent History Cardiac: Cardiac Catheterization, Cardiac Stent, Pacemaker Respiratory: No Pertinent History Gastrointestinal: Cholecystectomy Genitourinary: No Pertinent History Musculoskeletal: No Pertinent History Female Surgical History: Section Other Surgical History: HEART CATH AND STENT IN MAY 2013 - Social History Smoking Status: Current every day smoker How long have you smoked: 39 yrs Exposure to second hand smoke: Yes Drug Use: none Patient Lives Alone: No - Nursing Vital Signs Nursing Vital Signs: Initial Vital Signs Temperature 98.5 F 05/09/20 15:31 Pulse Rate 84 05/09/20 15:31 Respiratory Rate 18 05/09/20 15:31 Blood Pressure 106/62 05/09/20 15:31 O2 Sat by Pulse Oximetry 96 05/09/20 15:31 Pain Scale Pain Intensity 8 - Physical Exam General Appearance: no apparent distress, alert Eye Exam: PERRL/EOMI, eyes nml inspection Neck Exam: normal inspection, non-tender, supple, full range of motion, No meningismus, No midline tenderness Respiratory Exam: normal breath sounds, lungs clear, No respiratory distress Cardiovascular Exam: regular rate/rhythm, normal heart sounds Gastrointestinal Exam: soft, No tenderness, No mass Back Exam: normal inspection, other (Tenderness to palpation at the right upper lumbar lower thoracic paraspinal musculature. Overlying soft tissue intact. No signs of trauma.), No CVA tenderness Extremity Exam: normal inspection, normal range of motion, No calf tenderness, No pedal edema Peripheral Pulses: dorsalis-pedis (R): 2+, dorsalis-pedis (L): 2+ Neurologic Exam: alert, oriented x 3, cooperative, chaperon II-XII nml as tested, normal mood/affect, nml station & gait, sensation nml, No motor deficits Skin Exam: normal color, warm, dry, No rash SpO2 Interpretation: normal SpO2: 96 O2 Delivery: Room Air - Course Nursing assessment & vital signs reviewed: Yes - Radiology Exams T-Spine X-ray Interpretation: Teleradiologist Report (Double curvature scoliosis, mild multilevel endplate spurring. Pulmonary calcified granulomas and left single lead pacemaker. No other bony or articular soft tissue abnormalities.) L-Spine X-ray Interpretation: Teleradiologist Report (Dextroscoliosis centered at L3-L4, multilevel endplate spurring mild L5-S1 disc space narrowing with bilateral degenerative facet arthropathy and cholecystectomy clips. No other bony articular soft tissue abnormalities.) Ordered Tests: Active Orders 24 hr Category Date Time Status LUMBAR LIMITED (2 OR 3 VIEWS) Stat Exams 05/09/20 15:38 Completed THORACIC SPINE (AP,LAT,SWIMM) Stat Exams 05/09/20 15:39 Completed CULTURE,URINE Stat Lab 05/09/20 16:40 Received UA W/RFX UR CULTURE Stat Lab 05/09/20 16:40 Completed Transfer Order Routine Transfer 05/09/20 Ordered Medication Summary Discontinued Medications Generic Name Dose Route Start Last Admin Trade Name Wandy PRN Reason Stop Dose Admin Ketorolac Tromethamine 30 mg 05/09/20 17:22 05/09/20 17:45 Toradol 30 Mg Injection IM 05/09/20 17:23 30 mg STAT ONE Administration Ketorolac Tromethamine Confirm 05/09/20 17:39 Toradol 30 Mg Injection Administered 05/09/20 17:40 Dose 30 mg .ROUTE .[place] ONE Lab/Rad Data: Laboratory Results 05/09/20 Range/Units 16:40 Urine Color EMMIE (YELLOW) Urine Appearance CLOUDY (CLEAR) Urine pH 5.0 (5-6) Ur Specific [place] 1.030 (1.005-1.025) Urine Protein 100 (Negative) Urine Ketones TRACE (NEGATIVE) Urine Blood NEGATIVE (0-5) Fredis/ul Urine Nitrite NEGATIVE (NEGATIVE) Urine Bilirubin SMALL (NEGATIVE) Urine Urobilinogen 2 (0-1) mg/dL Ur Leukocyte Esterase TRACE (NEGATIVE) Urine WBC (Auto) 6-10 (0-5) /HPF Urine RBC (Auto) 0-2 (0-2) /HPF U Hyaline Cast (Auto) 11-25 (0-2) /LPF U Epithel Cells (Auto) FEW (FEW) /HPF Urine Bacteria (Auto) FEW (NEGATIVE) /HPF Urine Mucus (Auto) SLIGHT (NEGATIVE) /HPF Urine Culture Reflexed YES (NO) Urine Glucose NEGATIVE (NEGATIVE) mg/dL - Progress Progress: improved Progress Note: 05/09/20 17:23 05/09/20 17:28 Patient reassessed. Back pain improved. X-ray of thoracic and lumbar spine shows scoliosis and degenerative arthritis. UA suggestive of urinary tract infection. A prescription will be for the patient's pharmacy. Incidental calcified lung granulomas observed. Patient states she is ready for discharge. Patient agrees to follow-up with her primary care doctor within 48 hours for 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 Counseled pt/family regarding: lab results, diagnosis, need for follow-up, rad results - Departure Departure Disposition: Home Clinical Impression: UTI (urinary tract infection), Arthritis, Lumbosacral strain, Calcified granuloma of lung Condition: Stable Critical Care Time: No Referrals: VIET DIXON MD [Primary Care Provider] - Additional Instructions: Discharge/Care Plan RAFAEL BENÍTEZ was seen on 05/09/20 in the Emergency Room. The patient was counseled regarding Diagnosis,Lab results, Imaging studies, need for follow up and when to return to the Emergency Room. Prescriptions given: Discharge Note I have spoken with the patient and/or caregivers. I have explained the patient's condition, diagnosis and treatment plan based on the information available to me at this time. I have answered the patient's and/or caregiver's questions and addressed any concerns. The patient and/or caregivers have as good understanding of the patient's diagnosis, condition and treatment plan as can be expected at this point. The vital signs have been stable. The patient's condition is stable and appropriate for discharge from the emergency department. The patient will pursue further outpatient evaluation with the primary care physician or other designated or consulting physician as outlined in the discharge instructions. The patient and/or caregivers are agreeable to this plan of care and follow-up instructions have been explained in detail. The patient and/or caregivers have received these instruction. The patient/and or caregivers are aware that any significant change in condition or worsening of symptoms should prompt an immediate return to this or the closest emergency department or call 911. Prescriptions: Nitrofurantoin Macro 100 mg [Macrobid 100MG Capsule] 100 mg PO BID 7 Days #14 capsule
[2020-05-09 16:21] VITALS: PULSE 76
--- NOTE | 2020-05-09 16:45 | XRAY ---
Indication: Low back pain. Comparison: None 3 view lumbar spine demonstrates 5 lumbar vertebral segments with mild dextroscoliosis centered at L3-L4, minimal multilevel endplate spurring, mild L5-S1 disc space narrowing with bilateral degenerative facet arthropathy, and cholecystectomy clips. No other bony, articular, or soft tissue abnormalities.
--- NOTE | 2020-05-09 16:45 | XRAY ---
Indication: Low back pain. Comparison: None AP/lateral thoracic spine demonstrates 11 rib-bearing thoracic vertebral segments with minimal double curvature scoliosis, mild multilevel endplate spurring, pulmonary calcified granulomas, and left single lead pacemaker. No other bony, articular, or soft tissue abnormalities.
[2020-05-09 17:01] LABS: Appearance CLOUDY (CLEAR); Bacteria FEW /HPF (NEGATIVE); Bilirubin SMALL (NEGATIVE); Blood NEGATIVE Ery/ul (0-5); Epithelial Cells FEW /HPF (FEW); Glucose NEGATIVE (NEGATIVE); Ketones TRACE (NEGATIVE); Leukocyte Esterase TRACE (NEGATIVE); Mucus SLIGHT /HPF (NEGATIVE); Nitrite NEGATIVE (NEGATIVE); Protein,Urine Dip 100 (Negative); RBC 0-2 /HPF (0-2); Urobilinogen 2 mg/dL (0-1)
[2020-05-09] MEDS ORDERED: TORAdol 30 mg Injection IM ONE (17:22)
[2020-05-09] MEDS ORDERED: TORAdol 30 mg Injection ONE (17:39)
[2020-05-09 17:51] VITALS: BP 112/66
[2020-05-09 17:52] VITALS: O2SAT 96
== END 2020-05-09 17:57 | disposition home or self-care (01) ==
LOC: ED 15:16
DX: N39.0 Urinary tract infection, site not specified (principal); M19.90 Unspecified osteoarthritis, unspecified site; S33.9XXA Sprain of unspecified parts of lumbar spine and pelvis, initial encounter; X50.0XXA Overexertion from strenuous movement or load, initial encounter; Y93.9 Activity, unspecified; Y92.9 Unspecified place or not applicable; Y99.9 Unspecified external cause status; M41.9 Scoliosis, unspecified; J84.10 Pulmonary fibrosis, unspecified; I10 Essential (primary) hypertension; E11.9 Type 2 diabetes mellitus without complications; I25.10 Atherosclerotic heart disease of native coronary artery without angina pectoris; E78.00 Pure hypercholesterolemia, unspecified; I25.2 Old myocardial infarction
CPT/HCPCS: 72072; 72100; 81001; 87086; 96372; 99284; J1885

== ENCOUNTER 2020-10-17 16:06 | Emergency (ER) | payer OTHER ==
[2020-10-17] MEDS ORDERED: GI COCKTAIL 45 ML (Maalox/Lidocaine) PO ONE (16:29)
[2020-10-17] MEDS ORDERED: Sodium Chloride 0.9% 1000 ML 1,000 ML IV SCH (16:30)
[2020-10-17] MEDS ORDERED: PROTONIX 40 MG IV IV ONE ×2 (16:33→16:36)
--- NOTE | 2020-10-17 16:36 | ERPHSYRPT ---
- History of Present Illness Time Seen by Provider: 10/17/20 16:30 Historian: patient Exam Limitations: no limitations Patient Subjective Stated Complaint: Pt states "I had pain in my upper aabdomen. I didn't eat anything last night. I did eat this morning and after I ate, I had horrible painin my upper belly again." Triage Nursing Assessment: Pt presented aert and oriented X 3, skin pwd. Pt ambulates with an upright steady gait, able to speak in clear full sentences pt will occasionally grab at her epigastric region. Physician History: Patient is a 50-year-old female presents to our ED with postprandial epigastric pain. Pain started this morning after breakfast. Pain described as ache that is well localized. No radiation. Pain is constant. No associated trauma. No fever. No nausea vomiting or diaphoresis. Symptoms are mild to moderate in intensity. No specific improving factors. Patient denies associated chest pain or shortness of breath. She voices no other complaints or concerns at this juan j e. Timing/Duration: today Quality: aching Abdominal Pain Onset Location: epigastric Pain Radiation: no radiation Severity of Pain-Max: moderate Severity of Pain-Current: mild Modifying Factors: Improves With: eating Associated Symptoms: denies symptoms, No back, No chest pain, No diaphoresis, No diarrhea, No fever/chills, No fatigue, No headache, No heartburn, No loss of appetite, No nausea, No neck pain, No rash, No shortness of breath, No syncope, No vomiting Previous symptoms: same symptoms as today Allergies/Adverse Reactions: aspirin Allergy (Mild, Verified 05/09/20 15:30) Sulfa (Sulfonamide Antibiotics) Allergy (Mild, Verified 05/09/20 15:30) shellfish derived Allergy (Verified 05/09/20 15:30) Itching rash Home Medications: Diltiazem HCl [Diltiazem 12Hr ER] 60 mg PO TID 12/11/17 [History] Pravastatin Sodium 40 mg PO DAILY 12/11/17 [History] Metformin HCl 500 mg [Glucophage 500 MG] 500 mg PO BID 01/17/18 [History] Insulin Glargine,Hum.rec.anlog [Basaglar Kwikpen U-100] 100 unit SQ DAILY 10/17/20 [History] Liraglutide [Victoza 2-Luis] 1.8 mg SQ DAILY 10/17/20 [History] Omeprazole 20 mg PO DAILY 10/17/20 [History] Hx Tetanus, Diphtheria Vaccination/Date Given: No Hx Influenza Vaccination/Date Given: Yes Hx Pneumococcal Vaccination/Date Given: Yes Immunizations Up to Date: Yes Travel Risk - International Travel Have you traveled outside of the country in past 3 weeks: No - Coronavirus Screening Are you exhibiting any of the following symptoms?: No Close contact with a COVID-19 positive Pt in past 14-21 Days: No - Review of Systems Constitutional: No Symptoms, No Fever, No Chills Eyes: No Symptoms Ears, Nose, & Throat: No Symptoms Respiratory: No Symptoms, No Cough, No Dyspnea Cardiac: No Symptoms, No Chest Pain, No Edema, No Syncope Abdominal/Gastrointestinal: No Symptoms, No Abdominal Pain, No Nausea, No Vomiting, No Diarrhea Genitourinary Symptoms: No Symptoms, No Dysuria Musculoskeletal: No Symptoms, No Back Pain, No Neck Pain Skin: No Symptoms, No Rash Neurological: No Symptoms, No Dizziness, No Focal Weakness, No Sensory Changes Psychological: No Symptoms Endocrine: No Symptoms Hematologic/Lymphatic: No Symptoms Immunological/Allergic: No Symptoms All Other Systems: Reviewed and Negative - Past Medical History Pertinent Past Medical History: Yes Neurological History: No Pertinent History ENT History: No Pertinent History Cardiac History: Arrhythmia, Coronary Artery Disease, High Cholesterol, Hypertension, Myocardial Infarction ([place]) Respiratory History: No Pertinent History Endocrine Medical History: Diabetes Type II Musculoskeletal History: No Pertinent History GI Medical History: No Pertinent History History: No Pertinent History Psycho-Social History: No Pertinent History Female Reproductive Disorders: No Pertinent History Other Medical History: "spots on the thyroid" - Past Surgical History Past Surgical History: Yes Neuro Surgical History: No Pertinent History Cardiac: Cardiac Catheterization, Cardiac Stent, Pacemaker Respiratory: No Pertinent History Gastrointestinal: Cholecystectomy Genitourinary: No Pertinent History Musculoskeletal: No Pertinent History Female Surgical History: Section Other Surgical History: HEART CATH AND STENT IN MAY 2013 - Social History Smoking Status: Current every day smoker How long have you smoked: years Exposure to second hand smoke: Yes Drug Use: none Patient Lives Alone: No - Female History Hx Now: No - Nursing Vital Signs Nursing Vital Signs: Initial Vital Signs Temperature 97.3 F 10/17/20 16:13 Pulse Rate 95 H 10/17/20 16:13 Respiratory Rate 22 02/02/21 16:13 Blood Pressure 145/102 10/17/20 16:13 O2 Sat by Pulse Oximetry 98 10/17/20 16:13 Pain Scale Pain Intensity 4 - Physical Exam General Appearance: no apparent distress, alert Eye Exam: PERRL/EOMI, eyes nml inspection Ears, Nose, Throat Exam: normal ENT inspection, pharynx normal, moist mucous membranes Neck Exam: normal inspection, non-tender, supple, full range of motion Respiratory Exam: normal breath sounds, lungs clear, No respiratory distress Cardiovascular Exam: regular rate/rhythm, normal heart sounds Gastrointestinal/Abdomen Exam: soft, tenderness, No mass, No guarding, No organomegaly, No splenomegaly (Epigastric tenderness to palpation.) Back Exam: normal inspection, normal range of motion, No CVA tenderness, No vertebral tenderness Extremity Exam: normal inspection, normal range of motion, pelvis stable Neurologic Exam: alert, oriented x 3, cooperative, normal mood/affect, nml cerebellar function, sensation nml, No motor deficits Skin Exam: normal color, warm, dry SpO2 Interpretation: normal SpO2: 98 O2 Delivery: Room Air - Course Nursing assessment & vital signs reviewed: Yes EKG Interpreted by Me: RATE (93), Sinus Rhythm, NORMAL AXIS, NORMAL INTERVALS - CT Exams Abdomen/Pelvis CT Interpretation: Tele-radiologist Report (tiny bilateral renal cyst. Hepatomegaly. Remaining abdomen pelvis exam negative.) Ordered Tests: Active Orders 24 hr Category Date Time Status Foreign Law Consultant STAT Care 10/17/20 16:27 Active EKG-ER Only STAT Care 10/17/20 16:26 Active IV Insertion STAT Care 10/17/20 16:26 Active Pulse Oximetry (ED) STAT Care 10/17/20 16:26 Active ABDOMEN AND PELVIS W CONTRAST [CT] Stat Exams 10/17/20 16:30 Taken CBC W DIFF Stat Lab 10/17/20 14:35 Completed CMP Stat Lab 10/17/20 14:35 Completed LIPASE Stat Lab 10/17/20 14:35 Completed MAGNESIUM Stat Lab 10/17/20 14:35 Completed TROPONIN Q3H Lab 10/17/20 14:35 Completed TROPONIN Q3H Lab 10/17/20 18:50 Completed TROPONIN Q3H Lab 10/17/20 22:30 Ordered TROPONIN Q3H Lab 10/18/20 01:30 Ordered TROPONIN Q3H Lab 10/18/20 04:30 Ordered UA W/RFX UR CULTURE Stat Lab 10/17/20 16:27 Completed Medication Summary Generic Name Dose Route Start Last Admin Trade Name Wandy PRN Reason Stop Dose Admin Sodium Chloride 1,000 mls @ 100 mls/hr 10/17/20 16:30 10/17/20 16:38 Sodium Chloride 0.9% 1000 Ml IV 11/16/20 16:29 100 mls/hr .Q10H NADINE Administration Magnesium Sulfate/Dextrose 100 mls @ 100 mls/hr 10/17/20 18:30 10/17/20 19:04 Magnesium 1 Gm / 100 Ml D5w IV 10/17/20 20:29 100 mls/hr Q1H NADINE Administration Discontinued Medications Generic Name Dose Route Start Last Admin Trade Name Wandy PRN Reason Stop Dose Admin Al Hydrox/Mg Hydrox/Simethicone Confirm 10/17/20 16:37 Maalox Es 30 Ml Unit Dose Administered 10/17/20 16:38 Dose 30 ml .ROUTE .STK-MED ONE Lidocaine HCl Confirm 10/17/20 16:37 Xylocaine Hcl Viscous * Administered 10/17/20 16:38 Dose 15 ml .ROUTE .STK-MED ONE Magnesium Hydroxide 45 ml 10/17/20 16:29 10/17/20 16:38 Gi Cocktail 45 Ml (Maalox/Lidocaine) PO 10/17/20 16:30 45 ml STAT ONE Administration Pantoprazole Sodium 40 mg 10/17/20 16:33 10/17/20 16:38 Protonix 40 Mg Iv IV 10/17/20 16:34 40 mg STAT ONE Administration Pantoprazole Sodium Confirm 10/17/20 16:36 Protonix 40 Mg Iv Administered 10/17/20 16:37 Dose 40 mg IV .STK-MED ONE Lab/Rad Data: Laboratory Result Diagrams 10/17/20 14:35 10/17/20 14:35 Laboratory Results 10/17/20 10/17/20 10/17/20 Range/Units 18:50 16:27 14:35 WBC (4.0-10.5) K/mm3 RBC (4.1-5.4) M/mm3 Hgb (12.0-16.0) gm/dl Hct (35-47) % MCV (78-100) fl MCH (26-32) pg MCHC (32-36) g/dl RDW (11.5-14.0) % Plt Count (150-450) K/mm3 MPV (7.5-11.0) fl Gran % (36.0-66.0) % Eos # (Auto) (0-0.5) Absolute Lymphs (auto) (1.0-4.6) Absolute Monos (auto) (0.0-1.3) Lymphocytes % (24.0-44.0) % Monocytes % (0.0-12.0) % Eosinophils % (0.00-5.0) % Basophils % (0.0-0.4) % Absolute Granulocytes (1.4-6.9) Basophils # (0-0.4) Sodium (137-145) mmol/L Potassium (3.5-5.1) mmol/L Chloride (98-107) mmol/L Carbon Dioxide (22-30) mmol/L Anion Gap (5-15) MEQ/L BUN (7-17) mg/dL Creatinine (0.52-1.04) mg/dL Estimated GFR ML/MIN Glucose (74-106) mg/dL Calcium (8.4-10.2) mg/dL Magnesium (1.6-2.3) mg/dL Total Bilirubin (0.2-1.3) mg/dL AST (14-36) U/L ALT (0-35) U/L Alkaline Phosphatase (38-126) U/L Troponin I < 0.012 < 0.012 (0.000-0.034) ng/mL Serum Total Protein (6.3-8.2) g/dL Albumin (3.5-5.0) g/dL Lipase (23-300) U/L Urine Color YELLOW (YELLOW) Urine Appearance CLEAR (CLEAR) Urine pH 7.0 (5-6) Ur Specific [place] 1.011 (1.005-1.025) Urine Protein NEGATIVE (Negative) Urine Ketones NEGATIVE (NEGATIVE) Urine Blood NEGATIVE (0-5) Fredis/ul Urine Nitrite NEGATIVE (NEGATIVE) Urine Bilirubin NEGATIVE (NEGATIVE) Urine Urobilinogen NEGATIVE (0-1) mg/dL Ur Leukocyte Esterase NEGATIVE (NEGATIVE) Urine WBC (Auto) NONE (0-5) /HPF Urine RBC (Auto) NONE (0-2) /HPF U Hyaline Cast (Auto) 3-5 (0-2) /LPF U Epithel Cells (Auto) RARE (FEW) /HPF Urine Bacteria (Auto) RARE (NEGATIVE) /HPF Urine Mucus (Auto) SLIGHT (NEGATIVE) /HPF Urine Culture Reflexed NO (NO) Urine Glucose NEGATIVE (NEGATIVE) mg/dL 10/17/20 10/17/20 Range/Units 14:35 14:35 WBC 10.7 H (4.0-10.5) K/mm3 RBC 5.07 (4.1-5.4) M/mm3 Hgb 13.3 (12.0-16.0) gm/dl Hct 42.9 (35-47) % MCV 84.6 (78-100) fl MCH 26.2 (26-32) pg MCHC 31.0 L (32-36) g/dl RDW 15.2 H (11.5-14.0) % Plt Count 196 (150-450) K/mm3 MPV 10.4 (7.5-11.0) fl Gran % 72.7 H (36.0-66.0) % Eos # (Auto) 0.11 (0-0.5) Absolute Lymphs (auto) 2.26 (1.0-4.6) Absolute Monos (auto) 0.53 (0.0-1.3) Lymphocytes % 21.1 L (24.0-44.0) % Monocytes % 5.0 (0.0-12.0) % Eosinophils % 1.0 (0.00-5.0) % Basophils % 0.2 (0.0-0.4) % Absolute Granulocytes 7.78 H (1.4-6.9) Basophils # 0.02 (0-0.4) Sodium 135 L (137-145) mmol/L Potassium 4.4 (3.5-5.1) mmol/L Chloride 99 (98-107) mmol/L Carbon Dioxide 25 (22-30) mmol/L Anion Gap 14.5 (5-15) MEQ/L BUN 22 H (7-17) mg/dL Creatinine 0.89 (0.52-1.04) mg/dL Estimated GFR > 60.0 ML/MIN Glucose 183 H (74-106) mg/dL Calcium 10.2 (8.4-10.2) mg/dL Magnesium 1.2 L (1.6-2.3) mg/dL Total Bilirubin 0.40 (0.2-1.3) mg/dL AST 21 (14-36) U/L ALT 22 (0-35) U/L Alkaline Phosphatase 96 (38-126) U/L Troponin I (0.000-0.034) ng/mL Serum Total Protein 8.0 (6.3-8.2) g/dL Albumin 4.4 (3.5-5.0) g/dL Lipase 79 (23-300) U/L Urine Color (YELLOW) Urine Appearance (CLEAR) Urine pH (5-6) Ur Specific [place] (1.005-1.025) Urine Protein (Negative) Urine Ketones (NEGATIVE) Urine Blood (0-5) Fredis/ul Urine Nitrite (NEGATIVE) Urine Bilirubin (NEGATIVE) Urine Urobilinogen (0-1) mg/dL Ur Leukocyte Esterase (NEGATIVE) Urine WBC (Auto) (0-5) /HPF Urine RBC (Auto) (0-2) /HPF U Hyaline Cast (Auto) (0-2) /LPF U Epithel Cells (Auto) (FEW) /HPF Urine Bacteria (Auto) (NEGATIVE) /HPF Urine Mucus (Auto) (NEGATIVE) /HPF Urine Culture Reflexed (NO) Urine Glucose (NEGATIVE) mg/dL - Progress Progress: improved Progress Note: 10/17/20 18:40 Patient reassessed. Epigastric pain resolved after GI cocktail administration. CT negative for acute intra-abdominal pathology. Bilateral renal cyst and hepatomegaly observed. Magnesium was low. Magnesium replaced with 2 g of magnesium sulfate IV. Patient had the same epigastric pain approximately 2 years ago. At which time she received a EGD. Patient reports all was normal at that time. Troponin negative x2. Patient voices no other complaints or concerns at this time. A prescription for Protonix was sent to her pharmacy. Patient agrees to follow-up with her primary care doctor within 48 hours for 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 Patient is a smoker. Smoking cessation discussed. Patient is down to half a pack per day from 2 packs/day. 10/17/20 18:41 Counseled pt/family regarding: lab results, diagnosis, need for follow-up, rad results, smoking cessation - Departure Departure Disposition: Release to [place]/[facility] [place] Clinical Impression: Epigastric pain, Hypomagnesemia, Gastritis, Renal cyst, Hepatomegaly Condition: Stable Critical Care Time: No Referrals: VIET DIXON MD [Primary Care Provider] - Additional Instructions: Discharge/Care Plan RAFAEL BENÍTEZ was seen on 10/17/20 in the Emergency Room. The patient was counseled regarding Diagnosis,Lab results, Imaging studies, need for follow up and when to return to the Emergency Room. Prescriptions given: Discharge Note I have spoken with the patient and/or caregivers. I have explained the patient's condition, diagnosis and treatment plan based on the information available to me at this time. I have answered the patient's and/or caregiver's questions and addressed any concerns. The patient and/or caregivers have as good understanding of the patient's diagnosis, condition and treatment plan as can be expected at this point. The vital signs have been stable. The patient's condition is stable and appropriate for discharge from the emergency department. The patient will pursue further outpatient evaluation with the primary care physician or other designated or consulting physician as outlined in the discharge instructions. The patient and/or caregivers are agreeable to this plan of care and follow-up instructions have been explained in detail. The patient and/or caregivers have received these instruction. The patient/and or caregivers are aware that any significant change in condition or worsening of symptoms should prompt an immediate return to this or the closest emergency department or call 911. Prescriptions: PANTOPRAZOLE 40 mg Tablet [Protonix 40MG Tablet] 40 mg PO QAM 14 Days #14 tab
[2020-10-17] MEDS ORDERED: MAALOX ES 30 ML UNIT DOSE ONE (16:37)
[2020-10-17] MEDS ORDERED: XYLOCAINE HCl Viscous ONE (16:37)
[2020-10-17] MEDS ORDERED: Sodium Chloride 0.9% 1000 ML 1,000 ML ONE (16:37)
[2020-10-17 17:02] LABS: Absolute Neutrophil Ct (ANC) 7.78 (1.4-6.9); BASOPHIL % 0.2 % (0.0-0.4); Basophil (Absolute #) 0.02 (0-0.4); Eosinophil (Absolute #) 0.11 (0-0.5); Hematocrit 42.9 % (35-47); Hemoglobin 13.3 gm/dl (12.0-16.0); Lymphocyte (Absolute #) 2.26 (1.0-4.6); Lymphocytes % 21.1 % (24.0-44.0); Mean Cell Volume 84.6 fl (78-100); Mean Corpuscular Hemoglobin 26.2 pg (26-32); Mean Platelet Volume 10.4 fl (7.5-11.0); Monocyte (Absolute #) 0.53 (0.0-1.3); Neutrophil % 72.7 % (36.0-66.0); Platelet Count 196 K/mm3 (150-450); Red Blood Count 5.07 M/mm3 (4.1-5.4); Red Cell Distribution Width 15.2 % (11.5-14.0); White Blood Count 10.7 K/mm3 (4.0-10.5)
[2020-10-17 17:10] LABS: ALBUMIN 4.4 g/dL (3.5-5.0); ALKALINE PHOSPHATASE 96 U/L (38-126); ANION GAP 14.5 MEQ/L (5-15); BLOOD UREA NITROGEN 22 mg/dL (7-17); CHLORIDE 99 mmol/L (98-107); Calcium 10.2 mg/dL (8.4-10.2); Carbon Dioxide 25 mmol/L (22-30); Creatinine 1 0.89 mg/dL (0.52-1.04); EST GLOMERULAR FILTRATION RATE > 60.0 ML/MIN; Glucose 183 mg/dL (74-106); LIPASE 79 U/L (23-300); MAGNESIUM 1.2 mg/dL (1.6-2.3); Potassium 4.4 mmol/L (3.5-5.1); SGOT/AST 21 U/L (14-36); SGPT/ALT 22 U/L (0-35); SODIUM 135 mmol/L (137-145)
[2020-10-17 17:15] LABS: Appearance CLEAR (CLEAR); Bacteria RARE /HPF (NEGATIVE); Bilirubin NEGATIVE (NEGATIVE); Blood NEGATIVE Ery/ul (0-5); Epithelial Cells RARE /HPF (FEW); Glucose NEGATIVE (NEGATIVE); Ketones NEGATIVE (NEGATIVE); Leukocyte Esterase NEGATIVE (NEGATIVE); Mucus SLIGHT /HPF (NEGATIVE); Nitrite NEGATIVE (NEGATIVE); Protein,Urine Dip NEGATIVE (Negative); Specific Gravity 1.011 (1.005-1.025); Urobilinogen NEGATIVE mg/dL (0-1)
[2020-10-17] MEDS ORDERED: Magnesium 1 Gm / 100 Ml D5W*** 100 ML IV ONE ×2 (18:27→19:01)
[2020-10-17] MEDS: Magnesium 1 Gm / 100 Ml D5W*** 100 ML IV SCH ×2 (18:29→19:04)
[2020-10-17 20:08] VITALS: BP 115/67; PULSE 91
[2020-10-17 20:12] VITALS: O2SAT 98
--- NOTE | 2020-10-18 08:42 | XRAY ---
Indication: Epigastric pain. Multiple contiguous axial images obtained through the abdomen and pelvis using 100 cc Isovue 370 contrast. Comparison: January 17, 2018. Lung bases again demonstrates minimal left base fibrosis/scarring. No infiltrate or effusion. Heart is not enlarged. Noncontrasted stomach and bowel loops appear nonobstructed. Appendix again not seen. No free fluid/air. 5 mm renal cyst seen in each kidney, not well seen on previous noncontrast exam. Again 23 cm fatty hepatomegaly and cholecystectomy. Remaining liver, pancreas, spleen, adrenal glands, kidneys, ureters, bladder, and uterus appear unremarkable. Minimal aortoiliac calcifications. No AAA or pathologic retroperitoneal lymphadenopathy. Osseous structures intact again with mild degenerative changes throughout the spine, greatest at the lumbosacral junction. Stable small supraumbilical fatty ventral hernia. Impression: 1. Bilateral renal cysts, fatty hepatomegaly, and small fatty ventral hernia. 2. Remaining CT abdomen/pelvis with contrast exam is negative.
== END 2020-10-17 20:12 | disposition home or self-care (01) ==
LOC: ED 16:06
DX: R10.13 Epigastric pain (principal); E83.42 Hypomagnesemia; N28.1 Cyst of kidney, acquired; R16.0 Hepatomegaly, not elsewhere classified; K29.70 Gastritis, unspecified, without bleeding; E78.5 Hyperlipidemia, unspecified; I10 Essential (primary) hypertension; I25.2 Old myocardial infarction; E11.9 Type 2 diabetes mellitus without complications; F17.210 Nicotine dependence, cigarettes, uncomplicated; Z79.899 Other long term (current) drug therapy
CPT/HCPCS: 36000; 36415; 74177; 80053; 81001; 83690; 83735; 84484; 85025; 93005; 93041; 94760; 96365; 96366; 96374; 99284; J3475; A9270-GY

== ENCOUNTER 2020-11-03 21:13 | Emergency (ER) | payer OTHER ==
--- NOTE | 2020-11-03 21:34 | ERPHSYRPT ---
- History of Present Illness Time Seen by Provider: 11/03/20 21:34 Source: patient Exam Limitations: no limitations Patient Subjective Stated Complaint: . Triage Nursing Assessment: . Physician History: This is a 50-year-old morbidly obese white female with a history of diabetes, hypertension, coronary disease and gastroesophageal reflux disease and presents with left buttock abscess. It is increased in size and tenderness over the last several days. She denies fevers. Timing/Duration: week(s) (onee) Quality: painful Severity: mild Location: other (Left buttock) Possible Causes: no cause identified Modifying Factors: Improves With: other (Tender to palpation) Associated Symptoms: swelling/mass/lumps (Tender abscess left buttock) Allergies/Adverse Reactions: aspirin Allergy (Mild, Verified 11/03/20 21:23) Sulfa (Sulfonamide Antibiotics) Allergy (Mild, Verified 11/03/20 21:23) shellfish derived Allergy (Verified 11/03/20 21:23) Itching rash Home Medications: Diltiazem HCl [Diltiazem 12Hr ER] 60 mg PO TID 12/11/17 [History] Pravastatin Sodium 40 mg PO DAILY 12/11/17 [History] Metformin HCl 500 mg [Glucophage 500 MG] 500 mg PO BID 01/17/18 [History] Insulin Glargine,Hum.rec.anlog [Basaglar Kwikpen U-100] 50 unit SQ DAILY 10/17/20 [History] Liraglutide [Victoza 2-Luis] 1.2 mg SQ DAILY 10/17/20 [History] Omeprazole 20 mg PO DAILY 10/17/20 [History] Gabapentin 100 mg PO TID 11/03/20 [History] Hx Tetanus, Diphtheria Vaccination/Date Given: Yes Hx Influenza Vaccination/Date Given: No Hx Pneumococcal Vaccination/Date Given: No Immunizations Up to Date: Yes Travel Risk - International Travel Have you traveled outside of the country in past 3 weeks: No - Coronavirus Screening Are you exhibiting any of the following symptoms?: No Close contact with a COVID-19 positive Pt in past 14-21 Days: No - Review of Systems Constitutional: No Symptoms, No Fever, No Chills Eyes: No Symptoms Ears, Nose, & Throat: No Symptoms Respiratory: No Symptoms Cardiac: No Symptoms Abdominal/Gastrointestinal: No Symptoms Genitourinary Symptoms: No Symptoms Musculoskeletal: No Symptoms Skin: Cellulitis (Localized over lying left buttock abscess) Neurological: No Symptoms Psychological: No Symptoms Endocrine: No Symptoms Hematologic/Lymphatic: No Symptoms Immunological/Allergic: No Symptoms All Other Systems: Reviewed and Negative - Past Medical History Pertinent Past Medical History: Yes Neurological History: No Pertinent History ENT History: No Pertinent History Cardiac History: Arrhythmia, Coronary Artery Disease, High Cholesterol, Hypertension, Myocardial Infarction ([place]) Respiratory History: No Pertinent History Endocrine Medical History: Diabetes Type II Musculoskeletal History: No Pertinent History GI Medical History: No Pertinent History History: No Pertinent History Psycho-Social History: No Pertinent History Female Reproductive Disorders: No Pertinent History Other Medical History: "spots on the thyroid" - Past Surgical History Past Surgical History: Yes Neuro Surgical History: No Pertinent History Cardiac: Cardiac Catheterization, Cardiac Stent, Pacemaker Respiratory: No Pertinent History Gastrointestinal: Cholecystectomy Genitourinary: No Pertinent History Musculoskeletal: No Pertinent History Female Surgical History: Section, Tubal Ligation Other Surgical History: HEART CATH AND STENT IN MAY 2013 - Social History Smoking Status: Current every day smoker How long have you smoked: 45 years Exposure to second hand smoke: Yes Drug Use: none Patient Lives Alone: No - Female History Hx Last Menstrual Period: POST Hx Now: No - Nursing Vital Signs Nursing Vital Signs: Initial Vital Signs Temperature 98.4 F 11/03/20 21:29 Pulse Rate 97 H 11/03/20 21:29 Respiratory Rate 22 11/03/20 21:29 Blood Pressure 160/95 11/03/20 21:29 O2 Sat by Pulse Oximetry 98 11/03/20 21:29 Pain Scale Pain Intensity 8 - Physical Exam General Appearance: no apparent distress, alert, anxiety, obese Eye Exam: PERRL/EOMI, eyes nml inspection Ears, Nose, Throat Exam: normal ENT inspection, moist mucous membranes Neck Exam: normal inspection, non-tender, supple, full range of motion Respiratory Exam: normal breath sounds, lungs clear, airway intact, No chest tenderness, No respiratory distress Cardiovascular Exam: regular rate/rhythm, normal heart sounds, normal peripheral pulses Gastrointestinal/Abdomen Exam: No tenderness Pelvic Exam: not done Rectal Exam: not done Back Exam: normal inspection, normal range of motion, No CVA tenderness, No vertebral tenderness Extremity Exam: normal inspection, normal range of motion, pelvis stable Neurologic Exam: alert, oriented x 3, cooperative, professor of criminal justice II-XII nml as tested, normal mood/affect, nml cerebellar function, nml station & gait, sensation nml Skin Exam: other (Approximately 3-1/2 cm x 3-1/2 cm indurated area with underlying abscess and cellulitis that is localized in the skin overlying the same area. Is tender to palpation.) Lymphatic Exam: No adenopathy SpO2: 98 O2 Delivery: Room Air Procedures - Incision and Drainage Timeout: Performed Site: Left buttock Anesthesia: 1% Lidocaine cc's of anesthesia: 5 Blade Size: 15 I & D Procedure: betadine prep, culture obtained Results: small amount pus - Course Nursing assessment & vital signs reviewed: Yes - Progress Progress: improved, pain not gone completely, re-examined Counseled pt/family regarding: diagnosis, need for follow-up - Departure Departure Disposition: Home Clinical Impression: Left buttock abscess Condition: Stable Critical Care Time: No Referrals: VIET DIXON MD [Primary Care Provider] - Additional Instructions: Keep a pressure dressing in place overnight. Beginning tomorrow morning use warm soapy water or warm sitz bath 3 times a day. Irrigate out the site and cover the dry wound with dressing and change as needed. Take antibiotics and pain medication as prescribed. If symptoms worsen then return to the emergency department for evaluation. Prescriptions: Hydrocodone/APAP 5/325 [Flint 5/325 mg] 1 each PO Q8H PRN PRN #6 tablet MDD 3 PRN Reason: Pain Doxycycline Hyclate 100 mg [Vibramycin 100 MG] 100 mg PO BID #14 tab
[2020-11-03] MEDS ORDERED: Rocephin 1000 MG INJ IM ONE (22:13)
[2020-11-03] MEDS ORDERED: Vibramycin 100 MG PO ONE (22:13)
[2020-11-03] MEDS ORDERED: NORCO 5/325 MG PO ONE ×2 (22:14→22:15)
[2020-11-03] MEDS ORDERED: XYLOCAINE 1% HCL 20 ML MDV IJ ONE (22:19)
[2020-11-03] MEDS ORDERED: NORCO 5/325 MG ONE (22:24)
[2020-11-03] MEDS ORDERED: Vibramycin 100 MG ONE (22:24)
[2020-11-03] MEDS ORDERED: Rocephin 1000 MG INJ ONE (22:25)
[2020-11-03 23:31] VITALS: BP 134/87; PULSE 93; O2SAT 97
== END 2020-11-03 22:20 | disposition home or self-care (01) ==
LOC: ED 21:13
DX: L02.31 Cutaneous abscess of buttock (principal)
CPT/HCPCS: 87070; 96372; 99284; J0696; A9270-GY

== ENCOUNTER 2021-09-20 11:46 | Emergency (ER) | payer OTHER ==
[2021-09-20] MEDS ORDERED: NORCO 5/325 MG PO ONE (12:21)
--- NOTE | 2021-09-20 12:26 | ERPHSYRPT ---
- History of Present Illness Time Seen by Provider: 09/20/21 11:57 Source: patient Exam Limitations: no limitations Patient Subjective Stated Complaint: Knee injury Triage Nursing Assessment: Patient brought into ED via w/c and transferred to bed with assist of 1. Patient A+O X 3. Patient's skin pink, warm and dry. Patient states earlier this am she tripped and fell landing on her right leg. Patient states she is unable to bear weight. Patient states pain is right knee and richter area 8/10. Bruising with small abrasion noted to right knee. Physician History: 51 years old morbidly obese female with multiple medical problems presented in the ER with chief complaint of right knee and leg pain after her leg gave away while getting into her van and landed on right knee. She is having difficulty weightbearing since then with moderate intensity sharp pain shooting from knee down to leg. Superficial skin abrasion. No pain in the ankle. No injury anywhere else. Method of Injury: fell Occurred: this morning Quality: sharpness Severity of Pain-Max: moderate Severity of Pain-Current: moderate Lower Extremities Pain: leg: right, knee: right Modifying Factors: Improves With: immobilization. Worsens With: movement Associated Symptoms: unable to bear weight Allergies/Adverse Reactions: aspirin Allergy (Mild, Verified 09/20/21 11:48) Sulfa (Sulfonamide Antibiotics) Allergy (Mild, Verified 09/20/21 11:48) shellfish derived Allergy (Verified 09/20/21 11:48) Itching rash Home Medications: Diltiazem HCl [Diltiazem 12Hr ER] 60 mg PO TID 12/11/17 [History] Pravastatin Sodium 40 mg PO DAILY 12/11/17 [History] Metformin HCl 500 mg [Glucophage 500 MG] 500 mg PO BID 01/17/18 [History] Insulin Glargine,Hum.rec.anlog [Basaglar Kwikpen U-100] 50 unit SQ DAILY 10/17/20 [History] Liraglutide [Victoza 2-Luis] 1.2 mg SQ DAILY 10/17/20 [History] Omeprazole 20 mg PO DAILY 10/17/20 [History] Gabapentin 100 mg PO TID 11/03/20 [History] Hx Tetanus, Diphtheria Vaccination/Date Given: Yes Hx Influenza Vaccination/Date Given: No Hx Pneumococcal Vaccination/Date Given: No Immunizations Up to Date: Yes Travel Risk - International Travel Have you traveled outside of the country in past 3 weeks: No - Coronavirus Screening Are you exhibiting any of the following symptoms?: No Close contact with a COVID-19 positive Pt in past 14-21 Days: No - Vaccine Status Have you recieved a Covid-19 vaccination: Yes [place]: [facility] - Vaccination Dates Date of 2cond Vaccination (if applicable): March 2021 - Review of Systems Constitutional: No Symptoms Eyes: No Symptoms Respiratory: No Symptoms Cardiac: No Symptoms Abdominal/Gastrointestinal: No Symptoms Genitourinary Symptoms: No Symptoms Musculoskeletal: Arthralgias, Injury, Joint Redness, Joint Pain Skin: Skin Lesions Neurological: No Symptoms Endocrine: No Symptoms Hematologic/Lymphatic: No Symptoms Immunological/Allergic: No Symptoms - Past Medical History Pertinent Past Medical History: Yes Neurological History: No Pertinent History ENT History: No Pertinent History Cardiac History: Arrhythmia, Coronary Artery Disease, High Cholesterol, Hypertension, Myocardial Infarction ([place]) Respiratory History: No Pertinent History Endocrine Medical History: Diabetes Type II Musculoskeletal History: No Pertinent History GI Medical History: No Pertinent History History: No Pertinent History Psycho-Social History: No Pertinent History Female Reproductive Disorders: No Pertinent History Other Medical History: "spots on the thyroid" - Past Surgical History Past Surgical History: Yes Neuro Surgical History: No Pertinent History Cardiac: Cardiac Catheterization, Cardiac Stent, Pacemaker Respiratory: No Pertinent History Gastrointestinal: Cholecystectomy Genitourinary: No Pertinent History Musculoskeletal: No Pertinent History Female Surgical History: Section, Tubal Ligation Other Surgical History: HEART CATH AND STENT IN MAY 2013 - Social History Smoking Status: Current every day smoker How long have you smoked: 45 years Exposure to second hand smoke: Yes Drug Use: none Patient Lives Alone: No - Female History Hx Now: No - Nursing Vital Signs Nursing Vital Signs: Initial Vital Signs Temperature 98.0 F 09/20/21 11:48 Pulse Rate 85 09/20/21 11:48 Respiratory Rate 18 09/20/21 11:48 Blood Pressure 133/75 09/20/21 11:48 O2 Sat by Pulse Oximetry 99 09/20/21 11:48 Pain Scale Pain Intensity 2 - Physical Exam General Appearance: no apparent distress, alert Eyes, Ears, Nose, Throat Exam: normal ENT inspection Neck Exam: normal inspection, supple, full range of motion Cardiovascular/Respiratory Exam: normal breath sounds, regular rate/rhythm Back Exam: normal inspection Legs Exam: right leg: bone tenderness (Minimal anterior leg tenderness) Knees Exam: right knee: bone tenderness (Anterior knee), pain, soft tissue tenderness (Abrasions), swelling (Minimal swelling), left knee: non-tender, normal inspection, normal range of motion, no evidence of injury Neuro/Tendon Exam: normal sensation, normal motor functions Mental Status Exam: alert, oriented x 3, cooperative Skin Exam: normal color SpO2 Interpretation: normal SpO2: 99 O2 Delivery: Room Air Ordered Tests: Active Orders 24 hr Category Date Time Status KNEE (MIN 4 VIEW) Stat Exams 09/20/21 12:26 Completed LOWER LEG Stat Exams 09/20/21 Completed Medication Summary Discontinued Medications Generic Name Dose Route Start Last Admin Trade Name Wnady PRN Reason Stop Dose Admin Hydrocodone Bitart/Acetaminophen 2 tab 09/20/21 12:21 09/20/21 12:37 Hydrocodone/Apap 5/325 Mg Tablet PO 09/20/21 12:22 Not Given STAT ONE Hydrocodone Bitart/Acetaminophen Confirm 09/20/21 12:35 Hydrocodone/Apap 5/325 Mg Tablet Administered 09/20/21 12:36 Dose 2 tab .ROUTE .STK-MED ONE - Progress Progress: unchanged Progress Note: 09/20/21 13:37 X-rays are negative for fracture dislocation. I believe she has a knee contusion, recommended Alfredo wrap, ice, pain medication as needed and outpatient follow-up. Discussed signs symptoms of worsening needing return to ER which she seems understanding. No injury anywhere else, do not think needs any other work-up as this was a clear mechanical fall. Counseled pt/family regarding: diagnosis, need for follow-up, rad results - Departure Departure Disposition: Home Clinical Impression: Contusion, knee and lower leg Qualifiers: Encounter type: initial encounter Laterality: right Qualified Code(s): S80.01XA - Contusion of right knee, initial encounter; S80.11XA - Contusion of right lower leg, initial encounter Fall Qualifiers: Encounter type: initial encounter Qualified Code(s): W19.XXXA - Unspecified fall, initial encounter Condition: Stable Critical Care Time: No Referrals: SHEILA MISTRY NP [NON-STAFF PHY W/O PRIVILEGES] - Follow up/PCP as directed (In 2 days for reevaluation) ORTHO - DHRUV ESPINOSA INSTALLER HELPER [NON-STAFF PHY W/O PRIVILEGES] - Follow up/PCP as directed (In 2 days for reevaluation) Instructions: Knee Pain (DC) Additional Instructions: Use cane/walker for ambulation all the time to avoid another fall. Take pain medications as needed. Return to ER for worsening pain or if develop swelling, difficulty ambulation etc. follow-up with primary care and orthopedic surgery for reevaluation in the next 2 to 3 days. Prescriptions: Hydrocodone/Acetaminophen [Hydrocodone-Acetamin 5-325 mg] 1 tab PO Q6HPRN PRN 3 Days #12 tablet MDD 4 PRN Reason: Pain
[2021-09-20] MEDS ORDERED: NORCO 5/325 MG ONE (12:35)
--- NOTE | 2021-09-20 12:35 | XRAY ---
Indication: Pain following fall. Comparison: None 2 view right lower leg demonstrates osteopenia, a few tiny soft tissue calcified granulomas, tiny heel spur, and knee degenerative changes reported separately. No other bony, articular, or soft tissue abnormalities.
--- NOTE | 2021-09-20 12:39 | XRAY ---
Indication: Pain following fall. Comparison: None 4 view right knee demonstrates osteopenia, mild/moderate tricompartmental degenerative changes greatest medial compartment, and small nonspecific effusion. No other bony, articular, or soft tissue abnormalities.
[2021-09-20 14:14] VITALS: BP 126/51; PULSE 100; O2SAT 97
== END 2021-09-20 14:15 | disposition home or self-care (01) ==
LOC: ED 11:46
DX: S80.01XA Contusion of right knee, initial encounter (principal); S80.11XA Contusion of right lower leg, initial encounter; W01.0XXA Fall on same level from slipping, tripping and stumbling without subsequent striking against object, initial encounter; I25.10 Atherosclerotic heart disease of native coronary artery without angina pectoris; I25.2 Old myocardial infarction; I10 Essential (primary) hypertension; Z72.0 Tobacco use; E78.5 Hyperlipidemia, unspecified; E11.9 Type 2 diabetes mellitus without complications; Z79.4 Long term (current) use of insulin; Z79.84 Long term (current) use of oral hypoglycemic drugs; Z79.899 Other long term (current) drug therapy; Z79.891 Long term (current) use of opiate analgesic
CPT/HCPCS: 73564; 73590; 99283; A9270-GY

== ENCOUNTER 2022-09-20 21:03 | Emergency (ER) | payer MEDICAID ==
[2022-09-20 21:17] VITALS: BP 128/61
--- NOTE | 2022-09-20 21:33 | ERPHSYRPT ---
- History of Present Illness Time Seen by Provider: 09/20/22 21:28 Source: patient Exam Limitations: no limitations Patient Subjective Stated Complaint: pt states she has had earache and sore throat since yesterday Triage Nursing Assessment: pt is alert and oriented, right ear more painful than left, right ear red and both ears full of yellow cerumen Physician History: Patient is a 52-year-old female who presents with a complaint of bilateral ear pain and sore throat pain. She started with pain in her right ear approximately 3 days ago then yesterday she noted that it was spreading to the left ear and her throat was getting sore. She was unable to see her family physician today so she came to the ER tonight. She complains of tenderness to touch on both ears but especially on the right. She also complains of pain with swallowing. She has no history of previous ear infections of any significance. Timing/Duration: gradual onset Severity: severe (Especially severe pain on the right) ENT Location: ear (R), ear (L), throat Modifying Factors: Improves With: nothing Associated Symptoms: ear pain (R), ear pain (L), sore throat Allergies/Adverse Reactions: aspirin Allergy (Mild, Verified 09/20/21 11:48) Sulfa (Sulfonamide Antibiotics) Allergy (Mild, Verified 09/20/21 11:48) shellfish derived Allergy (Verified 09/20/21 11:48) Itching rash Home Medications: Diltiazem HCl [Diltiazem 12Hr ER] 60 mg PO TID 12/11/17 [History] Pravastatin Sodium 40 mg PO DAILY 12/11/17 [History] Metformin HCl 500 mg [Glucophage 500 MG] 500 mg PO BID 01/17/18 [History] Insulin Glargine,Hum.rec.anlog [Basaglar Kwikpen U-100] 50 unit SQ DAILY 10/17/20 [History] Liraglutide [Victoza 2-Luis] 1.2 mg SQ DAILY 10/17/20 [History] Omeprazole 20 mg PO DAILY 10/17/20 [History] Gabapentin 100 mg PO TID 11/03/20 [History] Hx Tetanus, Diphtheria Vaccination/Date Given: Yes Hx Influenza Vaccination/Date Given: No Hx Pneumococcal Vaccination/Date Given: No Travel Risk - International Travel Have you traveled outside of the country in past 3 weeks: No - Coronavirus Screening Are you exhibiting any of the following symptoms?: No Close contact with a COVID-19 positive Pt in past 14-21 Days: No - Vaccine Status Have you recieved a Covid-19 vaccination: Yes Anodic Treater: Pfizer - Vaccination Dates Date of 2cond Vaccination (if applicable): unknown - Review of Systems Constitutional: No Fever, No Chills Eyes: No Symptoms Ears, Nose, & Throat: Ear Pain, Throat Pain, Painful Swallowing Respiratory: No Cough, No Dyspnea Cardiac: No Chest Pain, No Edema, No Syncope Abdominal/Gastrointestinal: No Abdominal Pain, No Nausea, No Vomiting, No Diarrhea Genitourinary Symptoms: No Dysuria Musculoskeletal: No Back Pain, No Neck Pain Skin: No Rash Neurological: No Dizziness, No Focal Weakness, No Sensory Changes Psychological: No Symptoms Endocrine: No Symptoms All Other Systems: Reviewed and Negative - Past Medical History Pertinent Past Medical History: Yes Neurological History: No Pertinent History ENT History: No Pertinent History Cardiac History: Arrhythmia, Coronary Artery Disease, High Cholesterol, Hypertension, Myocardial Infarction ([place]) Respiratory History: No Pertinent History Endocrine Medical History: Diabetes Type II Musculoskeletal History: No Pertinent History GI Medical History: No Pertinent History History: No Pertinent History Psycho-Social History: No Pertinent History Female Reproductive Disorders: No Pertinent History Other Medical History: "spots on the thyroid" - Past Surgical History Past Surgical History: Yes Neuro Surgical History: No Pertinent History Cardiac: Cardiac Catheterization, Cardiac Stent, Pacemaker Respiratory: No Pertinent History Gastrointestinal: Cholecystectomy Genitourinary: No Pertinent History Musculoskeletal: No Pertinent History Female Surgical History: Section, Tubal Ligation Other Surgical History: HEART CATH AND STENT IN MAY 2013 - Social History Smoking Status: Current every day smoker How long have you smoked: 45 years Exposure to second hand smoke: Yes Drug Use: none Patient Lives Alone: No - Nursing Vital Signs Nursing Vital Signs: Initial Vital Signs Temperature 98.9 F 09/20/22 21:08 Pulse Rate 88 09/20/22 21:08 Respiratory Rate 18 09/20/22 21:08 Blood Pressure 128/61 09/20/22 21:08 O2 Sat by Pulse Oximetry 93 L 09/20/22 21:08 Pain Scale Pain Intensity 5 - Physical Exam General Appearance: no apparent distress, alert Eye Exam: bilateral eye: PERRL, EOMI Ear Exam: bilateral ear: auricle normal (Tenderness to movement of the auricle on both sides), swelling (Swelling of both canals especially on the right), tenderness (Tenderness with movement of the auricle), TM dull Nasal Exam: normal inspection Throat Exam: moist mucus membranes, pharynx swelling (Pharynx is also inflamed), No tonsillar exudate Neck Exam: supple Cardiovascular/Respiratory Exam: normal breath sounds, regular rate/rhythm Abdominal Exam: non-tender, soft Neurologic Exam: alert, oriented x 3, sensation nml, No motor deficits Skin Exam: normal color, warm, dry SpO2 Interpretation: normal SpO2: 93 O2 Delivery: Room Air - Course Nursing assessment & vital signs reviewed: Yes - Progress Progress: unchanged - Departure Departure Disposition: Home Clinical Impression: Bilateral otitis externa, Pharyngitis Condition: Stable Critical Care Time: No Referrals: DESTINY MONSIVAIS [Primary Care Provider] - Follow up/PCP as directed Instructions: Outer Ear Infection (DC) Additional Instructions: No water in the ears. Prescriptions: Amox Tr/Potass Clav. 875 mg [Augmentin 875-125 Tablet] 875 mg PO BID 10 Days #20 tablet Malick/Baci/Poly/Hc Ear Susp [Cortisporin Ear Drops 10 ml Suspension] 10 ml OT QID 7 Days #10 ml
[2022-09-20] MEDS ORDERED: CORTISPORIN EAR DROPS 10 ML SUSPENSION OT ONE ×2 (21:37→21:42)
[2022-09-20] MEDS ORDERED: Augmentin 875-125 Tablet PO ONE (21:37)
[2022-09-20] MEDS ORDERED: Augmentin 875-125 Tablet ONE (21:42)
[2022-09-20 21:57] VITALS: PULSE 80; O2SAT 95
== END 2022-09-20 21:57 | disposition home or self-care (01) ==
LOC: ED 21:03
DX: H60.93 Unspecified otitis externa, bilateral (principal); J02.9 Acute pharyngitis, unspecified; H92.03 Otalgia, bilateral; E78.5 Hyperlipidemia, unspecified; I10 Essential (primary) hypertension; E11.9 Type 2 diabetes mellitus without complications; Z79.4 Long term (current) use of insulin; Z79.85 Long-term (current) use of injectable non-insulin antidiabetic drugs; Z79.84 Long term (current) use of oral hypoglycemic drugs; Z79.899 Other long term (current) drug therapy; Z72.0 Tobacco use
CPT/HCPCS: 99281; A9270-GY

== ENCOUNTER 2022-12-07 | Emergency (ER) | payer MEDICAID, OTHER ==
--- NOTE | 2022-12-07 00:10 | ERPHSYRPT ---
- History of Present Illness Time Seen by Provider: 12/07/22 00:09 Source: patient, EMS Exam Limitations: no limitations Physician History: This is an obese 52-year-old white female patient who has a history of hypertension, hyperlipidemia, diabetes, gastroesophageal reflux disease, arrhythmias, coronary artery disease (cardiac stents and pacemaker defibrillator in place) and continues to smoke cigarettes daily, and presents with localized right lateral chest wall pain with deep inspiration. Patient was seen at her outpatient clinic on 12/06/2022 and given a prescription for Tessalon Perles and injection of steroid medication. Patient still has the pain and the cough. Patient been coughing for 2 weeks and the cough as well as the localized pain in the right lateral chest wall has been worsening. Patient would like a chest x- ray and something different for cough control because the Tessalon Perles are not working. She has no anterior chest pain. She has no significant shortness of breath except at times when she has several frequent coughing spells. Patient has not had a fever. She has no abdominal pain. She has no vomiting or diarrhea. Timing/Duration: week(s) (2), worse Cough Quality/Degree: moderate, dry cough Possible Cause: occasional episodes Modifying Factors: Improves With: coughing Associated Symptoms: chest pain/soreness (With coughing but is localized in the right lateral ribs), cough, shortness of breath (With coughing), No fever, No muscle aches Allergies/Adverse Reactions: aspirin Allergy (Mild, Verified 09/20/21 11:48) Sulfa (Sulfonamide Antibiotics) Allergy (Mild, Verified 09/20/21 11:48) shellfish derived Allergy (Verified 09/20/21 11:48) Itching rash Home Medications: Diltiazem HCl [Diltiazem 12Hr ER] 60 mg PO TID 12/11/17 [History] Gabapentin 100 mg PO TID 11/03/20 [History] Atorvastatin Calcium 80 mg PO DAILY 12/07/22 [History] Empagliflozin [Jardiance] 10 mg PO DAILY 12/07/22 [History] Insulin Glargine,Hum.rec.anlog [Lantus] 35 units SQ HS 12/07/22 [History] Insulin Lispro [Humalog Jude Santosikpen] See Rx Instructions .ROUTE .COMPLEX 12/07/22 [History] Tirzepatide [Mounjaro] 5 mg SQ WEEKLY 12/07/22 [History] Hx Tetanus, Diphtheria Vaccination/Date Given: Yes Hx Influenza Vaccination/Date Given: No Hx Pneumococcal Vaccination/Date Given: No Travel Risk - International Travel Have you traveled outside of the country in past 3 weeks: No - Coronavirus Screening Are you exhibiting any of the following symptoms?: Yes Symptoms: Cough: New Onset, Shortness of Breath (With coughing) Close contact with a COVID-19 positive Pt in past 14-21 Days: No - Vaccine Status Have you recieved a Covid-19 vaccination: Yes 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: [employer] - Vaccination Dates Date of 2cond Vaccination (if applicable): unknown - Review of Systems Constitutional: No Symptoms Eyes: No Symptoms Ears, Nose, & Throat: No Symptoms Respiratory: Cough Cardiac: Chest Pain (Right lateral ribs with coughing) Abdominal/Gastrointestinal: No Symptoms Genitourinary Symptoms: No Symptoms Musculoskeletal: No Symptoms Skin: No Symptoms Neurological: No Symptoms Psychological: No Symptoms Endocrine: No Symptoms Hematologic/Lymphatic: No Symptoms Immunological/Allergic: No Symptoms All Other Systems: Reviewed and Negative - Past Medical History Pertinent Past Medical History: Yes Neurological History: No Pertinent History ENT History: No Pertinent History Cardiac History: Arrhythmia, Coronary Artery Disease, High Cholesterol, Hypertension, Myocardial Infarction ([place]) Respiratory History: No Pertinent History Endocrine Medical History: Diabetes Type II Musculoskeletal History: No Pertinent History GI Medical History: No Pertinent History History: No Pertinent History Psycho-Social History: No Pertinent History Female Reproductive Disorders: No Pertinent History Other Medical History: "spots on the thyroid" - Past Surgical History Past Surgical History: Yes Neuro Surgical History: No Pertinent History Cardiac: Cardiac Catheterization, Cardiac Stent, Pacemaker Respiratory: No Pertinent History Gastrointestinal: Cholecystectomy Genitourinary: No Pertinent History Musculoskeletal: No Pertinent History Female Surgical History: Section, Tubal Ligation Other Surgical History: HEART CATH AND STENT IN MAY 2013 - Social History Smoking Status: Current every day smoker How long have you smoked: 45 years Exposure to second hand smoke: Yes Drug Use: none Patient Lives Alone: No - Nursing Vital Signs Nursing Vital Signs: Initial Vital Signs Temperature 98.3 F 12/07/22 00:01 Pulse Rate 111 H 12/07/22 00:01 Respiratory Rate 22 12/07/22 00:01 Blood Pressure 153/86 12/07/22 00:01 O2 Sat by Pulse Oximetry 96 12/07/22 00:01 Pain Scale Pain Intensity 6 - Physical Exam General Appearance: no apparent distress, alert, anxiety, obese Eye Exam: PERRL/EOMI, eyes nml inspection Ears, Nose, Throat Exam: normal ENT inspection, moist mucous membranes Neck Exam: normal inspection, non-tender, supple, full range of motion Respiratory Exam: normal breath sounds, chest tenderness (Right lateral chest wall, localized pain with coughing), lungs clear, airway intact, No respiratory distress, No wheezing Cardiovascular Exam: regular rate/rhythm, normal heart sounds, normal peripheral pulses Gastrointestinal/Abdomen Exam: soft, normal bowel sounds, No tenderness Pelvic Exam: not done Rectal Exam: not done Back Exam: normal inspection, normal range of motion, No CVA tenderness, No vertebral tenderness Extremity Exam: normal inspection, normal range of motion, No pelvis stable Neurologic Exam: alert, oriented x 3, cooperative, rn internship II-XII nml as tested, normal mood/affect, nml cerebellar function, nml station & gait, sensation nml Skin Exam: normal color, warm, dry Lymphatic Exam: No adenopathy SpO2 Interpretation: normal O2 Delivery: Room Air - Course Nursing assessment & vital signs reviewed: Yes Ordered Tests: Active Orders 24 hr Category Date Time Status CHEST 1 VIEW (PORTABLE) Stat Exams 12/07/22 00:51 Taken Medication Summary Generic Name Dose Route Start Last Admin Trade Name Freq PRN Reason Stop Dose Admin Ceftriaxone Sodium/Dextrose 1 g in 50 mls @ 100 mls/hr 12/07/22 01:15 12/07/22 01:17 Rocephin 1 Gm-D5w 50 Ml Bag IV 12/07/22 01:44 100 mls/hr STAT STA 100 mls/hr Administration Discontinued Medications Generic Name Dose Route Start Last Admin Trade Name Freq PRN Reason Stop Dose Admin Hydrocodone Bitart/Acetaminophen 10 ml 12/07/22 00:51 12/07/22 01:17 Hydrocodone/Acetaminophen 5 Ml Udcup PO 12/07/22 00:52 10 ml STAT STA Administration Hydrocodone Bitart/Acetaminophen Confirm 12/07/22 01:16 Hydrocodone/Acetaminophen 5 Ml Udcup Administered 12/07/22 01:17 Dose 10 ml .ROUTE .STK-MED ONE Ceftriaxone Sodium 1,000 mg 12/07/22 00:52 12/07/22 01:18 Ceftriaxone Sodium 1000 Mg Inj Vial IM 12/07/22 00:53 Not Given STAT ONE Ceftriaxone Sodium/Dextrose Confirm 12/07/22 01:16 Rocephin 1 Gm-D5w 50 Ml Bag Administered 12/07/22 01:17 Dose 1 g in 50 mls @ ud IV .STK-MED ONE - Progress Progress: improved, re-examined Air Movement: good Progress Note: 12/07/22 01:32 Chest x-ray shows no definite infiltrate. However there appears to be a mild right basilar atelectasis and questionable small right pleural effusion. This patient's medical issue is 1 of moderate complexity. The level of complexity in the work-up performed was based on what the patient desired as well as review of the patient's past medical history, review of the patient's medication list, review of the patient's drug allergy list, history present illness, and physical findings on examination. The patient only wanted a different cough medicine and a chest x-ray performed. She has no anterior or left-sided chest pain and did not want an extensive cardiac work-up. The results of the chest x-ray were interpreted by me. Patient received parenteral antibiotics in the emergency department as well as hydrocodone/acetaminophen elixir. Discharge plan is for her to stop smoking, take the antibiotics as prescribed, take the steroids as prescribed as well as the hydrocodone/acetaminophen elixir cough syrup. Patient was told that there was possibly a pleural effusion on the right base of her lung and she should follow- up with her primary care doctor and economic history teacher on 12/09/2022. Antibiotics given: Yes Counseled pt/family regarding: diagnosis, need for follow-up, rad results Medical Desision Making - Discussion of managment Reviewed:: Test results, Need for additional workup Agreed on:: Treatment plan, need for follow-up - Diagnostic Testing Diagnostic test were ordered, analyzed, and reviewed by me: Yes Radiological Interpretation: Interpreted by me - Risk of complications The pt has a mod risk of morbidity or mortality based on: Need for prescription drug management - Departure Departure Disposition: Home Clinical Impression: URI (upper respiratory infection), Pleural effusion, right, Cough Condition: Stable Critical Care Time: No Referrals: DESTINY MONSIVAIS [Primary Care Provider] - Follow up/PCP as directed Additional Instructions: Stop smoking. Take your medication as prescribed. Follow-up with your economic history teacher and primary care doctor on the morning of 12/09/2022 to make arrangement for follow-up appointment within the next 5 days. Return to the emergency department if symptoms worsen Prescriptions: Hydrocodone/Acetaminophen [Hydrocodone-Acetamn 7.5-325/15] 10 ml PO Q8H PRN PRN #120 ml MDD 30 mL PRN Reason: Cough Prednisone 10 mg [Deltasone 10 mg] 10 mg PO TID #12 tablet Azithromycin 250 mg [Zithromax 250 MG TABLET] 250 mg PO ZPACK #6 tablet
[2022-12-07] MEDS ORDERED: HYDROCODONE-ACETAMIN 2.5-108/5 ML SOLUTION PO STA (00:51)
[2022-12-07] MEDS ORDERED: Rocephin 1000 MG INJ IM ONE (00:52)
[2022-12-07] MEDS ORDERED: ROCEPHIN 1 Gm-D5w 50 ml Bag** 1 G/50 ML IVPB IV STA (01:15)
[2022-12-07] MEDS ORDERED: HYDROCODONE-ACETAMIN 2.5-108/5 ML SOLUTION ONE (01:16)
[2022-12-07] MEDS ORDERED: ROCEPHIN 1 Gm-D5w 50 ml Bag** 1 G/50 ML IVPB IV ONE (01:16)
[2022-12-07 02:18] VITALS: BP 154/92; PULSE 91; O2SAT 93
--- NOTE | 2022-12-07 08:05 | XRAY ---
Indication: Cough. Comparison: May 25, 2021 Portable chest now demonstrates cardiomegaly with small bibasilar effusions concerning for mild/early cardiac decompensation/CHF. Superimposed pneumonia not completely excluded. Bony thorax intact again with osteopenia, degenerative changes, and left pacemaker.
== END 2022-12-07 02:22 | disposition home or self-care (01) ==
LOC: ED
DX: J06.9 Acute upper respiratory infection, unspecified (principal); J90 Pleural effusion, not elsewhere classified; R05.9 Cough, unspecified; I10 Essential (primary) hypertension; E78.5 Hyperlipidemia, unspecified; E11.9 Type 2 diabetes mellitus without complications; R07.9 Chest pain, unspecified; Z72.0 Tobacco use; Z79.891 Long term (current) use of opiate analgesic; Z79.52 Long term (current) use of systemic steroids; Z79.4 Long term (current) use of insulin; Z79.84 Long term (current) use of oral hypoglycemic drugs; Z79.85 Long-term (current) use of injectable non-insulin antidiabetic drugs; Z79.899 Other long term (current) drug therapy
CPT/HCPCS: 71045; 96372; 99283; J0696; A9270-GY

== ENCOUNTER 2023-01-03 20:29 | Emergency (ER) | payer OTHER ==
[2023-01-03 20:34] VITALS: O2SAT 95
[2023-01-03] MEDS ORDERED: Tessalon Perles 100 MG PO ONE ×2 (21:02→21:06)
--- NOTE | 2023-01-03 21:14 | ERPHSYRPT ---
- History of Present Illness Time Seen by Provider: 01/03/23 21:04 Source: patient Exam Limitations: no limitations Patient Subjective Stated Complaint: rt leg pain and swelling Triage Nursing Assessment: Pt came into ER via her personal wheelchair. Pt alert and oriented x4, pleasant and cooperative. Pt c/o rt lower ext pain and swelling. Rt lower leg and rt foot has 3+ pitting edema. Pt states this started late last night. Physician History: Patient c/o right calf swelling and localized pain near medial aspect of knee No h/o VTE. + h/o smoking for 48 years No recent hospitalization or major surgery. No recent trauma. No recent traveling. Cramping pain, 7/10 in severity, no redness Radiates from knee to foot Method of Injury: other (n/a) Occurred: last week Quality: cramping Severity of Pain-Max: moderate Severity of Pain-Current: moderate Lower Extremities Pain: leg: right Modifying Factors: Improves With: nothing. Worsens With: movement Associated Symptoms: none Allergies/Adverse Reactions: aspirin Allergy (Mild, Verified 01/03/23 20:45) Sulfa (Sulfonamide Antibiotics) Allergy (Mild, Verified 01/03/23 20:45) shellfish derived Allergy (Verified 01/03/23 20:45) Itching rash Home Medications: Diltiazem HCl [Diltiazem 12Hr ER] 60 mg PO TID 12/11/17 [History] Gabapentin 100 mg PO TID 11/03/20 [History] Atorvastatin Calcium 80 mg PO DAILY 12/07/22 [History] Empagliflozin [Jardiance] 10 mg PO DAILY 12/07/22 [History] Insulin Lispro [Humalog Jude Rock] See Rx Instructions .ROUTE .COMPLEX 12/07/22 [History] Tirzepatide [Mounjaro] 5 mg SQ WEEKLY 12/07/22 [History] Famotidine 40 mg PO DAILY 01/03/23 [History] Insulin Glargine,Hum.rec.anlog [Melissa Dasostar] 40 units SQ HS 01/03/23 [History] Montelukast Sodium 10 mg [Singulair 10 MG] 10 mg PO DAILY 01/03/23 [History] Sacubitril/Valsartan [Entresto 24 mg-26 mg Tablet] 1 tab PO BID 01/03/23 [History] Hx Tetanus, Diphtheria Vaccination/Date Given: Yes Hx Influenza Vaccination/Date Given: Yes Hx Pneumococcal Vaccination/Date Given: Yes Immunizations Up to Date: Yes Travel Risk - International Travel Have you traveled outside of the country in past 3 weeks: No - Coronavirus Screening Are you exhibiting any of the following symptoms?: Yes Symptoms: Cough: New Onset Close contact with a COVID-19 positive Pt in past 14-21 Days: No - Vaccine Status Have you recieved a Covid-19 vaccination: Yes 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 - Review of Systems Constitutional: No Symptoms Eyes: No Symptoms Ears, Nose, & Throat: No Symptoms Respiratory: No Symptoms Cardiac: Edema (RLE), No Chest Pain, No Palpitations Abdominal/Gastrointestinal: No Symptoms Genitourinary Symptoms: No Symptoms Musculoskeletal: No Symptoms Skin: No Symptoms Neurological: No Symptoms Psychological: No Symptoms Endocrine: No Symptoms Hematologic/Lymphatic: No Symptoms Immunological/Allergic: No Symptoms All Other Systems: Reviewed and Negative - Past Medical History Pertinent Past Medical History: Yes Neurological History: No Pertinent History ENT History: No Pertinent History Cardiac History: Arrhythmia, Coronary Artery Disease, High Cholesterol, Hypertension, Myocardial Infarction ([place]) Respiratory History: No Pertinent History Endocrine Medical History: Diabetes Type II Musculoskeletal History: Fractures GI Medical History: Gallbladder Disease History: No Pertinent History Psycho-Social History: No Pertinent History Female Reproductive Disorders: No Pertinent History Other Medical History: "spots on the thyroid" - Past Surgical History Past Surgical History: Yes Neuro Surgical History: No Pertinent History Cardiac: Cardiac Catheterization, Cardiac Stent, Pacemaker Respiratory: No Pertinent History Gastrointestinal: Cholecystectomy Genitourinary: No Pertinent History Musculoskeletal: Orthopedic Surgery Female Surgical History: Section, Tubal Ligation Other Surgical History: HEART CATH AND STENT IN MAY 2013, AICD, plate put in left femur due to fractured femur - Social History Smoking Status: Current every day smoker How long have you smoked: 46 yrs Exposure to second hand smoke: Yes Drug Use: none Patient Lives Alone: No - Nursing Vital Signs Nursing Vital Signs: Initial Vital Signs Temperature 97.7 F 01/03/23 20:33 Pulse Rate 112 H 01/03/23 20:33 Respiratory Rate 22 01/03/23 20:33 Blood Pressure 148/86 01/03/23 20:33 O2 Sat by Pulse Oximetry 95 01/03/23 20:33 Pain Scale Pain Intensity 5 - Physical Exam General Appearance: no apparent distress, obese Cardiovascular/Respiratory Exam: normal breath sounds, regular rate/rhythm, no respiratory distress Legs Exam: right leg: pain (medial aspect of left knee to foot), soft tissue ten derness, swelling Neuro/Tendon Exam: normal sensation, normal motor functions, normal tendon functions, responds to pain, no evidence tendon injury Mental Status Exam: alert, oriented x 3, cooperative Skin Exam: normal color, warm, dry, No rash, No ecchymosis SpO2 Interpretation: normal SpO2: 95 O2 Delivery: Room Air - Course Nursing assessment & vital signs reviewed: Yes - Radiology Ultrasound Exam Right Venous Lower Extremity Ultrasound: tele radiology report, negative (No DVT) Ordered Tests: Active Orders 24 hr Category Date Time Status Ultrasound Unilateral Extremities [VENOUS UNILAT/ Exams 01/03/23 20:55 Completed LIMITED EXTREMIT] [US] Stat Medication Summary Discontinued Medications Generic Name Dose Route Start Last Admin Trade Name Freq PRN Reason Stop Dose Admin Benzonatate 200 mg 01/03/23 21:02 01/03/23 21:07 Benzonatate 100 Mg Capsule PO 01/03/23 21:03 200 mg ONCE ONE Administration Benzonatate Confirm 01/03/23 21:06 Benzonatate 100 Mg Capsule Administered 01/03/23 21:07 Dose 200 mg PO .STK-MED ONE - Progress Progress: unchanged Progress Note: RLE US showed no DVT. No clnical concern for PE. Encouraged patient to start wearing compression stockings and f/u w/ PCP to obtain prescription grade stockings. Elevate RLE above level of heart. Decrease sodium intake w/ goal <2500mg per day. Counseled pt/family regarding: diagnosis, need for follow-up, rad results Medical Desision Making - Diagnostic Testing Diagnostic test were ordered, analyzed, and reviewed by me: Yes Radiological Interpretation: Reviewed by me, Teleradiologist Report - Risk of complications Low Risk: Low risk of morbidity from additional dx testing or treatment - Departure Departure Disposition: Home Clinical Impression: Lymphedema, Cough Condition: Good Critical Care Time: No Referrals: DESTINY MONSIVAIS [Primary Care Provider] - Follow Up with PCP/3 days Instructions: Lymphedema (DC) Prescriptions: Codeine Sulfate 15 mg PO TID PRN #15 tablet MDD 3 tab PRN Reason: Cough
--- NOTE | 2023-01-03 21:56 | XRAY ---
Indication: Pain and swelling. Two-dimensional sonogram and color Doppler imaging of the major venous vessels of the right leg performed. Comparison: None No thrombus seen in the examined deep venous vessels of the right leg including greater saphenous vein. Veins demonstrate normal compressibility. Venous waveforms are normal with and without augmentation. Impression: Right leg negative for DVT. Comment: Preliminary report was given.
[2023-01-03 22:01] VITALS: BP 121/61; PULSE 89
== END 2023-01-03 22:03 | disposition home or self-care (01) ==
LOC: ED 20:29
DX: I89.0 Lymphedema, not elsewhere classified (principal); R05.9 Cough, unspecified; M25.561 Pain in right knee; M79.661 Pain in right lower leg; E78.5 Hyperlipidemia, unspecified; I10 Essential (primary) hypertension; E11.9 Type 2 diabetes mellitus without complications; Z79.4 Long term (current) use of insulin; Z79.84 Long term (current) use of oral hypoglycemic drugs; Z79.85 Long-term (current) use of injectable non-insulin antidiabetic drugs; Z79.891 Long term (current) use of opiate analgesic; Z79.899 Other long term (current) drug therapy; Z72.0 Tobacco use
CPT/HCPCS: 93971; 99282; A9270-GY

== ENCOUNTER 2023-03-23 14:54 | Emergency (ER) | payer OTHER ==
[2023-03-23] MEDS ORDERED: DUONEB 0.5-3 MG/3 ml Neb IH ONE ×2 (15:38→15:44)
[2023-03-23 16:24] LABS: Absolute Neutrophil Ct (ANC) 5.37 x10^3/uL (1.4-6.9); BASOPHIL % 0.1 % (0.0-0.4); Basophil (Absolute #) 0.01 x10^3/uL (0-0.4); Eosinophil % 0.6 % (0.00-5.0); Eosinophil (Absolute #) 0.04 x10^3/uL (0-0.5); Hematocrit 41.4 % (35-47); Hemoglobin 12.3 g/dL (12.0-16.0); IMMATURE GRAN # 0.02 x10^3u/L (0.00-0.03); IMMATURE GRAN % 0.3 % (0.00-0.4); Lymphocyte (Absolute #) 1.43 x10^3/uL (1.0-4.6); Lymphocytes % 19.9 % (24.0-44.0); Mean Cell Volume 77.7 fL (78-100); Mean Corpuscular Hemoglobin 23.1 pg (26-32); Mean Corpuscular Hgb Concent. 29.7 g/dL (32-36); Mean Platelet Volume 10.1 fL (7.5-11.0); Monocyte (Absolute #) 0.32 x10^3/uL (0.0-1.3); Monocytes % 4.5 % (0.0-12.0); Neutrophil % 74.6 % (36.0-66.0); Platelet Count 220 x10^3/uL (150-450); Red Blood Count 5.33 x10^6/uL (4.1-5.4); Red Cell Distribution Width 18.8 % (11.5-14.0); White Blood Count 7.2 x10^3/uL (4.0-10.5)
[2023-03-23 16:37] LABS: ALBUMIN 4.1 g/dL (3.5-5.0); ALKALINE PHOSPHATASE 136 U/L (38-126); ANION GAP 11.4 MEQ/L (5-15); BLOOD UREA NITROGEN 18 mg/dL (7-17); CHLORIDE 97 mmol/L (98-107); Calcium 9.1 mg/dL (8.4-10.2); Carbon Dioxide 34 mmol/L (22-30); EST GLOMERULAR FILTRATION RATE > 60.0 ML/MIN; Glucose 312 mg/dL (74-106); MAGNESIUM 1.4 mg/dL (1.6-2.3); Potassium 3.3 mmol/L (3.5-5.1); SGOT/AST 17 U/L (14-36); SGPT/ALT 18 U/L (0-35); SODIUM 139 mmol/L (137-145); Total Protein 7.3 g/dL (6.3-8.2)
[2023-03-23 17:16] VITALS: PULSE 74; O2SAT 95
--- NOTE | 2023-03-23 18:40 | XRAY ---
CLINICAL HISTORY:Hemoptysis. Suspected PE; COMPARISON:None; TECHNIQUES:Contiguous thin axial CT images of the chest were acquired with the administration of intravenous contrast. Coronal and sagittal reconstructions were obtained. 80cc Isovue was administered for post-contrast images; FINDINGS: Normal caliber and adequate contrast filling of the pulmonary trunk and its branches. No detected filling defects. No detected vascular malformations or aneurismal dilatations. Left upper lobe solitary solid nodule is noted and measures about 5 x 5.7 mm, Lung rads category 2, for follow-up after 12 months. Few bilateral basal atelectatic bands were noted. Dorsal spondylodegenerative changes with right anterolateral osteophytosis and related localized pulmonary atelectatic and minute cystic changes were noted. No free or encysted pleural effusion. Heart size is moderately enlarged, and there is no pericardial effusion. No pathologically enlarged mediastinal, hilar or axillary lymph node was identified. There is no definite mass lesion in the chest wall. The scanned upper abdomen is unremarkable. IMPRESSION: No radiological evidence of PE in the current CT study. Left upper lobe solitary pulmonary nodule, Lung rads category 2, for follow-up after 12 months. Moderate cardiomegaly. Electronically Signed by: Jack Al MD. 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
[2023-03-23] MEDS ORDERED: HUMULIN R SQ ONE (18:45)
[2023-03-23] MEDS ORDERED: Vibramycin 100 MG PO ONE (18:45)
[2023-03-23] MEDS ORDERED: Magnesium 1 Gm / 100 Ml D5W*** 100 ML IV ONE ×2 (18:57→19:24)
--- NOTE | 2023-03-23 18:58 | ERPHSYRPT ---
- History of Present Illness Time Seen by Provider: 03/23/23 15:03 Source: patient Exam Limitations: no limitations Patient Subjective Stated Complaint: Pt states that she was placed on furosemide on Friday and she started coughing up bright red blood on Friday, she was also told on from [facility] that she had a small spot on her lung and to follow up next year with a "WOMEN DESIGNER" Triage Nursing Assessment: Pt brought self to the ER, vitals wnl, denies pain, pt states that her coughing up blood began yesterday and happens more when her throat is dry, pt states that the pharmacist at [facility] told her that Sulfa is in furosemide and she is allergic to Sulfa so isn't sure if that is causing it or not, pt was diagnosed with a spot on her lung on from [facility], pulses normal, skin n/w/d, doesn't appear to be in any distress Physician History: 52 years old morbidly obese female with history of coronary artery disease, congestive heart failure, pacemaker placement, tobacco abuse, COPD, hyperlipi demia presented in the ER with 1 month history of off-and-on coughing wet-to-dry and since yesterday noticed some blood streaking. Patient denies any chest pain or difficulty breathing. Patient reports she has been seen outpatient multiple times and had couple of ER visits as well but her cough is not improving. No fever or chills reported. Timing/Duration: week(s), intermittent, worse Cough Quality/Degree: productive cough, blood streaked sputum Modifying Factors: Worsens With: coughing Associated Symptoms: chest pain/soreness, cough, No fever, No shortness of breath, No sore throat, No wheezing Allergies/Adverse Reactions: aspirin Allergy (Mild, Verified 03/23/23 15:21) Sulfa (Sulfonamide Antibiotics) Allergy (Mild, Verified 03/23/23 15:21) shellfish derived Allergy (Verified 03/23/23 15:21) Itching rash Home Medications: Diltiazem HCl [Diltiazem 12Hr ER] 60 mg PO TID 12/11/17 [History] Gabapentin 100 mg PO BID 11/03/20 [History] Atorvastatin Calcium 80 mg PO DAILY 12/07/22 [History] Empagliflozin [Jardiance] 10 mg PO DAILY 12/07/22 [History] Insulin Lispro [Humalog Jude Kwikpen] See Rx Instructions .ROUTE .COMPLEX 12/07/22 [History] Famotidine 40 mg PO DAILY 01/03/23 [History] Insulin Glargine,Hum.rec.anlog [Allrohitmarlyvalentino Monsivais Pippaostar] 45 units SQ HS 01/03/23 [History] Sacubitril/Valsartan [Entresto 24 mg-26 mg Tablet] 1 tab PO BID 01/03/23 [History] Albuterol Sulfate [Albuterol Sulfate Hfa] 2 puff PO Q46H 03/23/23 [History] Clopidogrel Bisulfate [PLAVIX Tablet] 75 mg PO DAILY 03/23/23 [History] Ergocalciferol (Vitamin D2) [Vitamin D2] 50,000 unit PO WEEKLY 03/23/23 [History] hydroCHLOROthiazide [Hydrochlorothiazide] 25 mg PO DAILY 03/23/23 [History] Hx Tetanus, Diphtheria Vaccination/Date Given: Yes Hx Influenza Vaccination/Date Given: Yes Hx Pneumococcal Vaccination/Date Given: Yes Travel Risk - International Travel Have you traveled outside of the country in past 3 weeks: No - Coronavirus Screening Are you exhibiting any of the following symptoms?: No Close contact with a COVID-19 positive Pt in past 14-21 Days: No - Vaccine Status Have you recieved a Covid-19 vaccination: Yes 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 - Vaccination Dates Date of 2cond Vaccination (if applicable): 2020 - Review of Systems Constitutional: No Symptoms Eyes: No Symptoms Ears, Nose, & Throat: No Symptoms Respiratory: Cough Cardiac: Edema Abdominal/Gastrointestinal: No Symptoms Genitourinary Symptoms: No Symptoms Skin: No Symptoms Neurological: No Symptoms Hematologic/Lymphatic: No Symptoms Immunological/Allergic: No Symptoms - Past Medical History Pertinent Past Medical History: Yes Neurological History: No Pertinent History ENT History: No Pertinent History Cardiac History: Arrhythmia, Coronary Artery Disease, High Cholesterol, Hypertension, Myocardial Infarction ([place]) Respiratory History: No Pertinent History Endocrine Medical History: Diabetes Type II Musculoskeletal History: Fractures GI Medical History: Gallbladder Disease History: No Pertinent History Psycho-Social History: No Pertinent History Female Reproductive Disorders: No Pertinent History Other Medical History: spot on your lung - Past Surgical History Past Surgical History: Yes Neuro Surgical History: No Pertinent History Cardiac: Cardiac Catheterization, Cardiac Stent, Pacemaker Respiratory: No Pertinent History Gastrointestinal: Cholecystectomy Genitourinary: No Pertinent History Musculoskeletal: Orthopedic Surgery Female Surgical History: Section, Tubal Ligation Other Surgical History: HEART CATH AND STENT IN MAY 2013, AICD, plate put in left femur due to fractured femur - Social History Smoking Status: Current every day smoker How long have you smoked: 46 yrs Exposure to second hand smoke: Yes Drug Use: none Patient Lives Alone: No - Nursing Vital Signs Nursing Vital Signs: Initial Vital Signs Temperature 97.7 F 03/23/23 15:04 Pulse Rate 74 03/23/23 15:04 Blood Pressure 118/69 03/23/23 15:04 O2 Sat by Pulse Oximetry 97 03/23/23 15:04 Pain Scale Pain Intensity 0 - Physical Exam General Appearance: no apparent distress, alert Eye Exam: PERRL/EOMI, eyes nml inspection Ears, Nose, Throat Exam: normal ENT inspection, pharynx normal, moist mucous membranes Neck Exam: normal inspection, supple, full range of motion Respiratory Exam: wheezing, No respiratory distress Cardiovascular Exam: regular rate/rhythm, normal heart sounds Gastrointestinal/Abdomen Exam: soft, No tenderness Back Exam: normal inspection, normal range of motion Extremity Exam: pedal edema, swelling Neurologic Exam: alert, oriented x 3, cooperative, 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 nml as tested SpO2 Interpretation: normal SpO2: 95 O2 Delivery: Room Air - Course EKG Interpreted by Me: RATE (74), Sinus Rhythm, Left [place] Deviation, NORMAL INTERVALS, Left Bundle Branch Block, Non-specific ST Changes, Other (PVC) Ordered Tests: Active Orders 24 hr Category Date Time Status EKG-ER Only STAT Care 03/23/23 15:38 Completed IV Insertion STAT Care 03/23/23 15:38 Completed CHEST 1 VIEW (PORTABLE) Stat Exams 03/23/23 15:49 Taken CHEST WITH CONTRAST [CT] Stat Exams 03/23/23 17:43 Completed BLOOD CULTURE Stat Lab 03/23/23 16:10 Received CBC W DIFF Stat Lab 03/23/23 16:10 Completed CMP Stat Lab 03/23/23 16:10 Completed Lactic Acid Stat Lab 03/23/23 16:05 Completed MAGNESIUM Stat Lab 03/23/23 16:10 Completed NT PRO BNPII Stat Lab 03/23/23 16:10 Completed POCT GLUCOSE Stat Lab 03/23/23 19:30 Completed TROPONIN Q4H Lab 03/23/23 16:10 Completed Respiratory Therapy Assessment DAILY RT 03/23/23 15:57 Completed Medication Summary Discontinued Medications Generic Name Dose Route Start Last Admin Trade Name Wandy PARRA Reason Stop Dose Admin Albuterol/Ipratropium 3 ml 03/23/23 15:38 03/23/23 15:55 Ipratropium/Albuterol Sulfate 3 Ml Ampul.Neb IH 03/23/23 15:39 3 ml STAT ONE Administration Albuterol/Ipratropium Confirm 03/23/23 15:44 Ipratropium/Albuterol Sulfate 3 Ml Ampul.Neb Administered 03/23/23 15:45 Dose 3 ml IH .STK-MED ONE Doxycycline Hyclate 100 mg 03/23/23 18:45 03/23/23 19:32 Doxycycline Hyclate 100 Mg Tablet PO 03/23/23 18:46 100 mg STAT ONE Administration Doxycycline Hyclate Confirm 03/23/23 19:24 Doxycycline Hyclate 100 Mg Tablet Administered 03/23/23 19:25 Dose 100 mg .ROUTE .STK-MED ONE Magnesium Sulfate/Dextrose 100 mls @ 200 mls/hr 03/23/23 18:57 03/23/23 19:33 Magnesium 1 Gm / 100 Ml D5w IV 03/23/23 19:26 200 mls/hr STAT ONE Administration Magnesium Sulfate/Dextrose Confirm 03/23/23 19:24 Magnesium 1 Gm / 100 Ml D5w Administered 03/23/23 19:25 Dose 100 mls @ ud IV .STK-MED ONE Insulin Human Regular 5 unit 03/23/23 18:45 03/23/23 19:32 Insulin Regular, Human 1 Unit SQ 03/23/23 18:46 Not Given STAT ONE Insulin Human Regular Confirm 03/23/23 19:24 Insulin Regular, Human 1 Unit Administered 03/23/23 19:25 Dose 5 unit .ROUTE .STK-MED ONE Lab/Rad Data: Laboratory Result Diagrams 03/23/23 16:10 03/23/23 16:10 Laboratory Results 03/23/23 03/23/23 03/23/23 Range/Units 19:30 16:10 16:10 WBC (4.0-10.5) x10^3/uL RBC (4.1-5.4) x10^6/uL Hgb (12.0-16.0) g/dL Hct (35-47) % MCV (78-100) fL MCH (26-32) pg MCHC (32-36) g/dL RDW (11.5-14.0) % Plt Count (150-450) x10^3/uL MPV (7.5-11.0) fL Gran % (36.0-66.0) % Immature Gran % (Auto) (0.00-0.4) % Nucleat RBC Rel Count (0.00-0.1) % Eos # (Auto) (0-0.5) x10^3/uL Immature Gran # (Auto) (0.00-0.03) x10^3u/L Absolute Lymphs (auto) (1.0-4.6) x10^3/uL Absolute Monos (auto) (0.0-1.3) x10^3/uL Absolute Nucleated RBC (0.00-0.01) x10^3u/L Lymphocytes % (24.0-44.0) % Monocytes % (0.0-12.0) % Eosinophils % (0.00-5.0) % Basophils % (0.0-0.4) % Absolute Granulocytes (1.4-6.9) x10^3/uL Basophils # (0-0.4) x10^3/uL Sodium (137-145) mmol/L Potassium (3.5-5.1) mmol/L Chloride (98-107) mmol/L Carbon Dioxide (22-30) mmol/L Anion Gap (5-15) MEQ/L BUN (7-17) mg/dL Creatinine (0.52-1.04) mg/dL Estimated GFR ML/MIN Glucose (74-106) mg/dL POC Glucometer 234 H (74 to 106) mg/dL Lactic Acid (0.4-2.0) Calcium (8.4-10.2) mg/dL Magnesium (1.6-2.3) mg/dL Total Bilirubin (0.2-1.3) mg/dL AST (14-36) U/L ALT (0-35) U/L Alkaline Phosphatase (38-126) U/L Troponin I < 0.012 (0.000-0.034) ng/mL NT-Pro-B Natriuret Pep 1730 (<300) pg/mL Serum Total Protein (6.3-8.2) g/dL Albumin (3.5-5.0) g/dL 03/23/23 03/23/23 03/23/23 Range/Units 16:10 16:10 16:05 WBC 7.2 (4.0-10.5) x10^3/uL RBC 5.33 (4.1-5.4) x10^6/uL Hgb 12.3 (12.0-16.0) g/dL Hct 41.4 (35-47) % MCV 77.7 L (78-100) fL MCH 23.1 L (26-32) pg MCHC 29.7 L (32-36) g/dL RDW 18.8 H (11.5-14.0) % Plt Count 220 (150-450) x10^3/uL MPV 10.1 (7.5-11.0) fL Gran % 74.6 H (36.0-66.0) % Immature Gran % (Auto) 0.3 (0.00-0.4) % Nucleat RBC Rel Count 0.0 (0.00-0.1) % Eos # (Auto) 0.04 (0-0.5) x10^3/uL Immature Gran # (Auto) 0.02 (0.00-0.03) x10^3u/L Absolute Lymphs (auto) 1.43 (1.0-4.6) x10^3/uL Absolute Monos (auto) 0.32 (0.0-1.3) x10^3/uL Absolute Nucleated RBC 0.00 (0.00-0.01) x10^3u/L Lymphocytes % 19.9 L (24.0-44.0) % Monocytes % 4.5 (0.0-12.0) % Eosinophils % 0.6 (0.00-5.0) % Basophils % 0.1 (0.0-0.4) % Absolute Granulocytes 5.37 (1.4-6.9) x10^3/uL Basophils # 0.01 (0-0.4) x10^3/uL Sodium 139 (137-145) mmol/L Potassium 3.3 L (3.5-5.1) mmol/L Chloride 97 L (98-107) mmol/L Carbon Dioxide 34 H (22-30) mmol/L Anion Gap 11.4 (5-15) MEQ/L BUN 18 H (7-17) mg/dL Creatinine 0.80 (0.52-1.04) mg/dL Estimated GFR > 60.0 ML/MIN Glucose 312 H (74-106) mg/dL POC Glucometer (74 to 106) mg/dL Lactic Acid 1.6 (0.4-2.0) Calcium 9.1 (8.4-10.2) mg/dL Magnesium 1.4 L (1.6-2.3) mg/dL Total Bilirubin 0.60 (0.2-1.3) mg/dL AST 17 (14-36) U/L ALT 18 (0-35) U/L Alkaline Phosphatase 136 H (38-126) U/L Troponin I (0.000-0.034) ng/mL NT-Pro-B Natriuret Pep (<300) pg/mL Serum Total Protein 7.3 (6.3-8.2) g/dL Albumin 4.1 (3.5-5.0) g/dL - Progress Progress: improved, re-examined Air Movement: good Progress Note: 03/23/23 18:56 52 years old morbidly obese female with history of coronary artery disease, congestive heart failure, pacemaker placement, tobacco abuse, COPD, hyperlipidemia presented in the ER with 1 month history of off-and-on coughing wet-to-dry and since yesterday noticed some blood streaking. Patient denies any chest pain or difficulty breathing. Patient reports she has been seen outpatient multiple times and had couple of ER visits as well but her cough is not improving. No fever or chills reported. She is given DuoNeb. Feeling better on 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 Patient did cough up blood while in the ER. Work-up showed normal white count. EKG normal sinus rhythm with no acute ST elevation and negative initial troponin. Chest x-ray no acute cardiopulmonary findings reviewed by me, official report is pending. Pat ient chemistries showed mildly low magnesium and is getting replacement. I have to obtain CTA chest which is negative for PE. Patient does have a pulmonary nodule and recommended outpatient pulmonology follow-up. I believe patient has bronchitis, will start her on doxycycline. Patient blood sugar is uncontrolled, recommended increasing dose of insulin both long-acting and short acting. Counseled on blood sugar control. Outpatient follow-up recommended. Discussed signs symptoms of worsening needing return to ER which she seems understanding. Stable for discharge. Blood Culture(s) Obtained: No Antibiotics given: Yes Counseled pt/family regarding: lab results, diagnosis, need for follow-up, rad results, smoking cessation Medical Desision Making - Diagnostic Testing Diagnostic test were ordered, analyzed, and reviewed by me: Yes Radiological Interpretation: Interpreted by me, Reviewed by me, Teleradiologist Report - Risk of complications The pt has a mod risk of morbidity or mortality based on: Need for prescription drug management - Departure Departure Disposition: Home Clinical Impression: Acute bronchitis, Uncontrolled diabetes mellitus, Hypomagnesemia, Pulmonary nodule Condition: Stable Critical Care Time: No Referrals: DESTINY MONSIVAIS [Primary Care Provider] - Follow up with PCP 1 day Instructions: Acute Bronchitis, Adult (DC) Additional Instructions: Follow-up with 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 Monitor your blood sugar regularly, keep a log and follow-up for any change. Take insulin as recommended both short acting and long-acting. You need follow-up appointment with director clinical pharmacology for lung nodule. Return to ER for any worsening. Prescriptions: Doxycycline Hyclate 100 mg [Vibramycin 100 MG] 100 mg PO BID #14 tab
[2023-03-23] MEDS ORDERED: Vibramycin 100 MG ONE (19:24)
[2023-03-23] MEDS ORDERED: HUMULIN R ONE (19:24)
[2023-03-23 19:44] VITALS: BP 114/78
--- NOTE | 2023-03-23 21:10 | XRAY ---
Indication: Hemoptysis. COPD. Comparison: February 17, 2023 Portable chest unchanged again demonstrating cardiomegaly with left pacemaker and minimal right costophrenic angle fibrosis/scarring. No new/acute findings.
== END 2023-03-23 20:16 | disposition home or self-care (01) ==
LOC: ED 14:54 → MED SURG 17:57 → UNDOADMIN 17:57 → ED 20:16
DX: J20.9 Acute bronchitis, unspecified (principal); E11.65 Type 2 diabetes mellitus with hyperglycemia; E83.42 Hypomagnesemia; R91.1 Solitary pulmonary nodule; R05.9 Cough, unspecified; R04.2 Hemoptysis; E78.5 Hyperlipidemia, unspecified; I11.0 Hypertensive heart disease with heart failure; I50.9 Heart failure, unspecified; Z79.84 Long term (current) use of oral hypoglycemic drugs; Z79.4 Long term (current) use of insulin; Z79.02 Long term (current) use of antithrombotics/antiplatelets; Z79.899 Other long term (current) drug therapy; Z72.0 Tobacco use
CPT/HCPCS: 36000; 36415; 71045; 71260; 80053; 82947; 83605; 83735; 83880; 84484; 85025; 87040; 93005; 94640; 96365; 99284; J1815; J3475; A9270-GY

== ENCOUNTER 2023-03-28 00:10 | Emergency (ER) | payer OTHER ==
[2023-03-28 00:40] LABS: Absolute Neutrophil Ct (ANC) 6.01 x10^3/uL (1.4-6.9); BASOPHIL % 0.4 % (0.0-0.4); Basophil (Absolute #) 0.03 x10^3/uL (0-0.4); Eosinophil (Absolute #) 0.08 x10^3/uL (0-0.5); Hematocrit 41.2 % (35-47); Hemoglobin 12.1 g/dL (12.0-16.0); IMMATURE GRAN # 0.03 x10^3u/L (0.00-0.03); IMMATURE GRAN % 0.4 % (0.00-0.4); Lymphocyte (Absolute #) 1.52 x10^3/uL (1.0-4.6); Lymphocytes % 19.1 % (24.0-44.0); Mean Cell Volume 78.2 fL (78-100); Mean Corpuscular Hgb Concent. 29.4 g/dL (32-36); Mean Platelet Volume 10.3 fL (7.5-11.0); Monocyte (Absolute #) 0.28 x10^3/uL (0.0-1.3); Monocytes % 3.5 % (0.0-12.0); Neutrophil % 75.6 % (36.0-66.0); Platelet Count 196 x10^3/uL (150-450); Red Blood Count 5.27 x10^6/uL (4.1-5.4); Red Cell Distribution Width 19.2 % (11.5-14.0)
--- NOTE | 2023-03-28 00:50 | ERPHSYRPT ---
- History of Present Illness Time Seen by Provider: 03/28/23 00:20 Source: patient, EMS Exam Limitations: no limitations Patient Subjective Stated Complaint: pt states around 2029 tonight she began having a warm sensation in her back between her shoulder blades while sitting on her bed. denies any back or chest pain. respriations nonlabored. skin warm and dry. Triage Nursing Assessment: pt alert and oriented, answers questions approp. pt arrive per ambulance and transfers to [facility] with assist of 1. skin warm and dry. respirations nonlabored with lungs cta. no bruising, rash or abnormailities noted to back. Physician History: This is a morbidly obese 52-year-old white female patient who was brought to the emergency department by paramedics who provided independent medical history on this patient. This patient was brought to the emergency department because of a "warm sensation" between her scapula that was sudden in onset that began 8:30 PM on 03/27/2023. Patient has a history of hypertension, hyperlipidemia, insulin- dependent diabetes, gastroesophageal reflux disease, arrhythmias, coronary disease (cardiac stents on Plavix with a pacemaker/defibrillator in place). She continues to smoke cigarettes daily. Patient has had CAT scan of the chest with contrast on 2 different occasions within a week's time. Once at [facility] a week ago and she was told that there was a area of her left lung needed further work-up. She was also seen in our emergency department on 03/23/2023 because she was "coughing up blood. She states she is no longer coughing up blood. She was told at that visit she also has a "spot on her lung" in the left upper lobe on a CAT scan done on 03/23/2023. There is moderate cardiomegaly and the nodule in the left upper lobe as discussed above. Patient denies chest pain. She denies shortness of breath. Timing/Duration: yesterday Severity: mild Associated Symptoms: denies symptoms Allergies/Adverse Reactions: aspirin Allergy (Mild, Verified 03/28/23 00:21) Sulfa (Sulfonamide Antibiotics) Allergy (Mild, Verified 03/28/23 00:21) shellfish derived Allergy (Verified 03/28/23 00:21) Itching rash Home Medications: Diltiazem HCl [Diltiazem 12Hr ER] 60 mg PO TID 12/11/17 [History] Gabapentin 100 mg PO BID 11/03/20 [History] Atorvastatin Calcium 80 mg PO DAILY 12/07/22 [History] Empagliflozin [Jardiance] 10 mg PO DAILY 12/07/22 [History] Insulin Lispro [Humalog Jude Kwikpen] See Rx Instructions .ROUTE .COMPLEX 12/07/22 [History] Famotidine 40 mg PO DAILY 01/03/23 [History] Insulin Glargine,Hum.rec.anlog [Toujeo Max Solostar] 45 units SQ HS 01/03/23 [History] Sacubitril/Valsartan [Entresto 24 mg-26 mg Tablet] 1 tab PO BID 01/03/23 [History] Albuterol Sulfate [Albuterol Sulfate Hfa] 2 puff PO Q46H 03/23/23 [History] Clopidogrel Bisulfate [PLAVIX Tablet] 75 mg PO DAILY 03/23/23 [History] Ergocalciferol (Vitamin D2) [Vitamin D2] 50,000 unit PO WEEKLY 03/23/23 [History] hydroCHLOROthiazide [Hydrochlorothiazide] 25 mg PO DAILY 03/23/23 [History] Hx Tetanus, Diphtheria Vaccination/Date Given: Yes Hx Influenza Vaccination/Date Given: Yes Hx Pneumococcal Vaccination/Date Given: Yes Travel Risk - International Travel Have you traveled outside of the country in past 3 weeks: No - Coronavirus Screening Are you exhibiting any of the following symptoms?: No Close contact with a COVID-19 positive Pt in past 14-21 Days: No - Vaccine Status Have you recieved a Covid-19 vaccination: Yes 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[employer] - Vaccination Dates Date of 2cond Vaccination (if applicable): 2020 - Review of Systems Constitutional: No Symptoms Eyes: No Symptoms Ears, Nose, & Throat: No Symptoms Respiratory: No Symptoms Cardiac: No Symptoms Abdominal/Gastrointestinal: No Symptoms Genitourinary Symptoms: No Symptoms Musculoskeletal: No Symptoms Skin: Other (Warm sensation of the skin between her scapulae.) Neurological: No Symptoms Psychological: No Symptoms Endocrine: No Symptoms Hematologic/Lymphatic: No Symptoms Immunological/Allergic: No Symptoms All Other Systems: Reviewed and Negative - Past Medical History Pertinent Past Medical History: Yes Neurological History: No Pertinent History ENT History: No Pertinent History Cardiac History: Arrhythmia, Coronary Artery Disease, High Cholesterol, Hypertension, Myocardial Infarction ([place]) Respiratory History: No Pertinent History Endocrine Medical History: Diabetes Type II Musculoskeletal History: Fractures GI Medical History: Gallbladder Disease History: No Pertinent History Psycho-Social History: No Pertinent History Female Reproductive Disorders: No Pertinent History Other Medical History: spot on your lung - Past Surgical History Past Surgical History: Yes Neuro Surgical History: No Pertinent History Cardiac: Cardiac Catheterization, Cardiac Stent, Pacemaker Respiratory: No Pertinent History Gastrointestinal: Cholecystectomy Genitourinary: No Pertinent History Musculoskeletal: Orthopedic Surgery Female Surgical History: Section, Tubal Ligation Other Surgical History: HEART CATH AND STENT IN MAY 2013, AICD, plate put in left femur due to fractured femur - Social History Smoking Status: Current every day smoker How long have you smoked: 46 yrs Exposure to second hand smoke: Yes Drug Use: none Patient Lives Alone: No - Nursing Vital Signs Nursing Vital Signs: Initial Vital Signs Temperature 97.5 F 03/28/23 00:12 Pulse Rate 88 03/28/23 00:12 Respiratory Rate 18 03/28/23 00:12 Blood Pressure 141/81 03/28/23 00:12 O2 Sat by Pulse Oximetry 97 03/28/23 00:12 Pain Scale Pain Intensity 0 - Physical Exam General Appearance: no apparent distress, alert, anxiety, obese Eye Exam: PERRL/EOMI, eyes nml inspection Ears, Nose, Throat Exam: normal ENT inspection, moist mucous membranes Neck Exam: normal inspection, non-tender, supple, full range of motion Respiratory Exam: normal breath sounds, lungs clear, airway intact, No chest tenderness, No respiratory distress Cardiovascular Exam: regular rate/rhythm, normal heart sounds, normal peripheral pulses Gastrointestinal/Abdomen Exam: soft, normal bowel sounds, No tenderness Pelvic Exam: not done Rectal Exam: not done Back Exam: normal inspection, normal range of motion, No CVA tenderness, No vertebral tenderness, No rash Extremity Exam: normal inspection, normal range of motion, pelvis stable Neurologic Exam: alert, oriented x 3, cooperative, 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 nml as tested, normal mood/affect, nml cerebellar function, nml station & gait, sensation nml Skin Exam: normal color, warm, dry, No rash Lymphatic Exam: No adenopathy SpO2 Interpretation: normal SpO2: 97 O2 Delivery: Room Air - Course Nursing assessment & vital signs reviewed: Yes EKG Interpreted by Me: RATE (84), Sinus Rhythm, NORMAL AXIS, NORMAL INTERVALS, NORMAL QRS, NORMAL ST-T, Other (No acute ischemic changes on today's twelve-lead EKG) Ordered Tests: Active Orders 24 hr Category Date Time Status EKG-ER Only STAT Care 03/28/23 00:25 Active CBC W DIFF Stat Lab 03/28/23 00:37 Completed CMP Stat Lab 03/28/23 00:37 Completed NT PRO BNPII Stat Lab 03/28/23 00:37 Completed TROPONIN Q4H Lab 03/28/23 00:37 Completed TROPONIN Q4H Lab 03/28/23 04:30 Ordered TROPONIN Q4H Lab 03/28/23 08:30 Ordered Lab/Rad Data: Laboratory Result Diagrams 03/28/23 00:37 03/28/23 00:37 Laboratory Results 03/28/23 03/28/23 03/28/23 Range/Units 00:37 00:37 00:37 WBC (4.0-10.5) x10^3/uL RBC (4.1-5.4) x10^6/uL Hgb (12.0-16.0) g/dL Hct (35-47) % MCV (78-100) fL MCH (26-32) pg MCHC (32-36) g/dL RDW (11.5-14.0) % Plt Count (150-450) x10^3/uL MPV (7.5-11.0) fL Gran % (36.0-66.0) % Immature Gran % (Auto) (0.00-0.4) % Nucleat RBC Rel Count (0.00-0.1) % Eos # (Auto) (0-0.5) x10^3/uL Immature Gran # (Auto) (0.00-0.03) x10^3u/L Absolute Lymphs (auto) (1.0-4.6) x10^3/uL Absolute Monos (auto) (0.0-1.3) x10^3/uL Absolute Nucleated RBC (0.00-0.01) x10^3u/L Lymphocytes % (24.0-44.0) % Monocytes % (0.0-12.0) % Eosinophils % (0.00-5.0) % Basophils % (0.0-0.4) % Absolute Granulocytes (1.4-6.9) x10^3/uL Basophils # (0-0.4) x10^3/uL Sodium 141 (137-145) mmol/L Potassium 3.2 L (3.5-5.1) mmol/L Chloride 101 (98-107) mmol/L Carbon Dioxide 29 (22-30) mmol/L Anion Gap 13.5 (5-15) MEQ/L BUN 27 H (7-17) mg/dL Creatinine 1.25 H (0.52-1.04) mg/dL Estimated GFR 47.5 ML/MIN Glucose 231 H (74-106) mg/dL Calcium 9.0 (8.4-10.2) mg/dL Total Bilirubin 0.40 (0.2-1.3) mg/dL AST 18 (14-36) U/L ALT 19 (0-35) U/L Alkaline Phosphatase 106 (38-126) U/L Troponin I < 0.012 (0.000-0.034) ng/mL NT-Pro-B Natriuret Pep 1090 (<300) pg/mL Serum Total Protein 7.4 (6.3-8.2) g/dL Albumin 4.0 (3.5-5.0) g/dL 03/28/23 Range/Units 00:37 WBC 8.0 (4.0-10.5) x10^3/uL RBC 5.27 (4.1-5.4) x10^6/uL Hgb 12.1 (12.0-16.0) g/dL Hct 41.2 (35-47) % MCV 78.2 (78-100) fL MCH 23.0 L (26-32) pg MCHC 29.4 L (32-36) g/dL RDW 19.2 H (11.5-14.0) % Plt Count 196 (150-450) x10^3/uL MPV 10.3 (7.5-11.0) fL Gran % 75.6 H (36.0-66.0) % Immature Gran % (Auto) 0.4 (0.00-0.4) % Nucleat RBC Rel Count 0.0 (0.00-0.1) % Eos # (Auto) 0.08 (0-0.5) x10^3/uL Immature Gran # (Auto) 0.03 (0.00-0.03) x10^3u/L Absolute Lymphs (auto) 1.52 (1.0-4.6) x10^3/uL Absolute Monos (auto) 0.28 (0.0-1.3) x10^3/uL Absolute Nucleated RBC 0.00 (0.00-0.01) x10^3u/L Lymphocytes % 19.1 L (24.0-44.0) % Monocytes % 3.5 (0.0-12.0) % Eosinophils % 1.0 (0.00-5.0) % Basophils % 0.4 (0.0-0.4) % Absolute Granulocytes 6.01 (1.4-6.9) x10^3/uL Basophils # 0.03 (0-0.4) x10^3/uL Sodium (137-145) mmol/L Potassium (3.5-5.1) mmol/L Chloride (98-107) mmol/L Carbon Dioxide (22-30) mmol/L Anion Gap (5-15) MEQ/L BUN (7-17) mg/dL Creatinine (0.52-1.04) mg/dL Estimated GFR ML/MIN Glucose (74-106) mg/dL Calcium (8.4-10.2) mg/dL Total Bilirubin (0.2-1.3) mg/dL AST (14-36) U/L ALT (0-35) U/L Alkaline Phosphatase (38-126) U/L Troponin I (0.000-0.034) ng/mL NT-Pro-B Natriuret Pep (<300) pg/mL Serum Total Protein (6.3-8.2) g/dL Albumin (3.5-5.0) g/dL - Progress Progress: unchanged Progress Note: 03/28/23 00:48 This patient has multiple medical issues that are chronic. The work-up performed today is based on the patient's past medical history, review of the patient's medication list, review the patient's drug allergy list, history present illness and physical findings on examination. Patient has already had a significant work-up on 2 other occasions within the last week. I do not believe it is necessary for this patient with diabetes to expose her kidneys to a repeat CAT scan of the chest with contrast. She does not have an aneurysm of concern, she did not have pulmonary emboli, she does not have pneumonia. The work-up in this patient will include a twelve-lead EKG, CBC, CMP and troponin levels. If these are normal patient be discharged home to follow-up with her primary care provider or phlebotomy lab assistant for further evaluation of the left upper lobe pulmonary nodule which she has been told about now 3 different times within the last week. Counseled pt/family regarding: lab results, diagnosis, need for follow-up Medical Desision Making - Independent Historian Additional History obtained from: Director Of Technology/EMT - Diagnostic Testing Diagnostic test were ordered, analyzed, and reviewed by me: Yes - Risk of complications Low Risk: Low risk of morbidity from additional dx testing or treatment - Departure Departure Disposition: Home Clinical Impression: Pain, upper back, Hypokalemia Condition: Stable Critical Care Time: No Referrals: DESTINY MONSIVAIS [Primary Care Provider] - Follow up/PCP as directed Additional Instructions: Continue medication as prescribed. Follow-up with your primary care provider and phlebotomy lab assistant by phone today to make arrangements for for further evaluation management.
[2023-03-28 01:00] LABS: ANION GAP 13.5 MEQ/L (5-15); BILIRUBIN,TOTAL 0.4 mg/dL (0.2-1.3); Creatinine 1 1.25 mg/dL (0.52-1.04); EST GLOMERULAR FILTRATION RATE 47.5 ML/MIN; Potassium 3.2 mmol/L (3.5-5.1); Total Protein 7.4 g/dL (6.3-8.2)
[2023-03-28 01:16] VITALS: BP 144/72; PULSE 76
[2023-03-28] MEDS ORDERED: Klor Con PO ONE ×2 (01:16→01:18)
[2023-03-28 01:17] VITALS: O2SAT 97
== END 2023-03-28 01:25 | disposition home or self-care (01) ==
LOC: ED 00:10
DX: M54.6 Pain in thoracic spine (principal); E87.6 Hypokalemia; R20.2 Paresthesia of skin; I10 Essential (primary) hypertension; E78.5 Hyperlipidemia, unspecified; E11.9 Type 2 diabetes mellitus without complications; Z79.84 Long term (current) use of oral hypoglycemic drugs; Z79.4 Long term (current) use of insulin; Z79.02 Long term (current) use of antithrombotics/antiplatelets; Z79.899 Other long term (current) drug therapy; Z72.0 Tobacco use
CPT/HCPCS: 36415; 80053; 83880; 84484; 85025; 93005; 99283; A9270-GY

== ENCOUNTER 2023-04-28 20:58 | Emergency (ER) | payer OTHER ==
--- NOTE | 2023-04-28 21:23 | ERPHSYRPT ---
- History of Present Illness Time Seen by Provider: 04/28/23 21:18 Source: patient, EMS, old records Exam Limitations: no limitations Patient Subjective Stated Complaint: intermittent cold chill between shoulder blades Triage Nursing Assessment: Pt A&O X 3. Physician History: This is a morbidly obese 52-year-old white female patient who was brought into the emergency department by the paramedics. They provided us with independent medical history. I also reviewed old charts of this patient's emergency room visits here in this hospital. Patient states at 6:30 PM, prior to arrival, she began having cold sensation, sweats between her scapulae. I evaluated this patient 1 month ago for the same issue but at that time she stated that she had warm sensation between her scapulae. Patient has a history of coronary artery disease (Plavix, cardiac stents and pacemaker/defibrillator), she has a history of hypertension, hyperlipidemia, insulin-dependent diabetes, gastroesophageal reflux disease and arrhythmias. Patient continues to smoke cigarettes daily. A CT scan of the chest with contrast was performed 1 month ago and there is evidence of a left lung nodule/spot. She is well aware of this and she is keith mcdermott this worked up as an outpatient. This CAT scan also showed known mild cardiomegaly. There was no evidence of any intrathoracic aneurysm. Patient has no back pain or chest pain. She is not short of breath. She denies fever and she denies cough Timing/Duration: today Severity: mild Modifying Factors: Improves With: nothing Associated Symptoms: other (Nothing) Allergies/Adverse Reactions: aspirin Allergy (Mild, Verified 04/28/23 21:02) Sulfa (Sulfonamide Antibiotics) Allergy (Mild, Verified 04/28/23 21:02) shellfish derived Allergy (Verified 04/28/23 21:02) Itching rash Home Medications: Diltiazem HCl [Diltiazem 12Hr ER] 60 mg PO TID 12/11/17 [History] Gabapentin 100 mg PO BID 11/03/20 [History] Atorvastatin Calcium 80 mg PO DAILY 12/07/22 [History] Empagliflozin [Jardiance] 10 mg PO DAILY 12/07/22 [History] Famotidine 40 mg PO QHS 01/03/23 [History] Sacubitril/Valsartan [Entresto 24 mg-26 mg Tablet] 1 tab PO BID 01/03/23 [History] Albuterol Sulfate [Albuterol Sulfate Hfa] 2 puff PO Q4-6HPRN PRN 03/23/23 [History] Clopidogrel Bisulfate [PLAVIX Tablet] 75 mg PO DAILY 03/23/23 [History] Carvedilol [Coreg] 25 mg PO DAILY 04/28/23 [History] Ergocalciferol (Vitamin D2) [Vitamin D2] 50,000 units PO WEEKLY 04/28/23 [His tory] Insulin Glargine,Hum.rec.anlog [Lantus] 40 unit SQ QHS 04/28/23 [History] Montelukast Sodium 10 mg PO DAILY 04/28/23 [History] Hx Tetanus, Diphtheria Vaccination/Date Given: No Hx Influenza Vaccination/Date Given: Yes Hx Pneumococcal Vaccination/Date Given: Yes Travel Risk - International Travel Have you traveled outside of the country in past 3 weeks: No - Coronavirus Screening Are you exhibiting any of the following symptoms?: No Close contact with a COVID-19 positive Pt in past 14-21 Days: No - Vaccine Status Have you recieved a Covid-19 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: 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[employer] - Vaccination Dates Date of 2cond Vaccination (if applicable): UNKNOWN - Review of Systems Constitutional: No Symptoms Eyes: No Symptoms Ears, Nose, & Throat: No Symptoms Respiratory: No Symptoms Cardiac: No Symptoms Abdominal/Gastrointestinal: No Symptoms Genitourinary Symptoms: No Symptoms Musculoskeletal: No Symptoms Skin: Other (On sensation between her scapulae) Neurological: No Symptoms Psychological: No Symptoms Endocrine: No Symptoms Hematologic/Lymphatic: No Symptoms Immunological/Allergic: No Symptoms All Other Systems: Reviewed and Negative - Past Medical History Pertinent Past Medical History: Yes Neurological History: No Pertinent History ENT History: No Pertinent History Cardiac History: Arrhythmia, Coronary Artery Disease, High Cholesterol, Hypertension, Myocardial Infarction ([place]) Respiratory History: No Pertinent History Endocrine Medical History: Diabetes Type II Musculoskeletal History: Fractures GI Medical History: Gallbladder Disease History: No Pertinent History Psycho-Social History: No Pertinent History Female Reproductive Disorders: No Pertinent History Other Medical History: spot on your lung - Past Surgical History Past Surgical History: Yes Neuro Surgical History: No Pertinent History Cardiac: Cardiac Catheterization, Cardiac Stent, Internal Defibrillator, P acemaker Respiratory: No Pertinent History Gastrointestinal: Cholecystectomy Genitourinary: No Pertinent History Musculoskeletal: Orthopedic Surgery Female Surgical History: Section, Tubal Ligation Other Surgical History: HEART CATH AND STENT IN MAY 2013, AICD, plate put in left femur due to fractured femur - Social History Smoking Status: Current every day smoker How long have you smoked: 46 yrs Exposure to second hand smoke: Yes Drug Use: none Patient Lives Alone: No - Nursing Vital Signs Nursing Vital Signs: Initial Vital Signs Pulse Rate 80 04/28/23 21:12 Respiratory Rate 16 04/28/23 21:12 Blood Pressure 141/79 04/28/23 21:12 O2 Sat by Pulse Oximetry 96 04/28/23 21:12 Pain Scale Pain Intensity 0 - Physical Exam General Appearance: no apparent distress, alert, anxiety Eye Exam: PERRL/EOMI, eyes nml inspection Ears, Nose, Throat Exam: normal ENT inspection, moist mucous membranes Neck Exam: normal inspection, non-tender, supple, full range of motion Respiratory Exam: normal breath sounds, lungs clear, airway intact, No chest tenderness, No respiratory distress Cardiovascular Exam: regular rate/rhythm, normal heart sounds, normal peripheral pulses Gastrointestinal/Abdomen Exam: soft, normal bowel sounds, No tenderness Pelvic Exam: not done Rectal Exam: not done Back Exam: normal inspection, normal range of motion, No CVA tenderness, No vertebral tenderness Extremity Exam: normal inspection, normal range of motion, pelvis stable Neurologic Exam: alert, oriented x 3, cooperative, 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 No acute ischemic changes on today's twelve-lead EKG.) Ordered Tests: Active Orders 24 hr Category Date Time Status EKG-ER Only STAT Care 04/28/23 21:23 Active Pulse Oximetry (ED) STAT Care 04/28/23 21:23 Active BMP Stat Lab 04/28/23 21:25 Completed CBC W DIFF Stat Lab 04/28/23 21:25 Completed NT PRO BNPII Stat Lab 04/28/23 21:25 Completed TROPONIN Q4H Lab 04/28/23 21:25 Completed TROPONIN Q4H Lab 04/29/23 01:30 Ordered TROPONIN Q4H Lab 04/29/23 05:30 Ordered Medication Summary Discontinued Medications Generic Name Dose Route Start Last Admin Trade Name Wandy PRN Reason Stop Dose Admin Potassium Chloride 20 meq 04/28/23 22:42 04/28/23 22:50 Potassium Chloride Tab 10 Meq Tab PO 04/28/23 22:43 20 meq STAT ONE Administration Potassium Chloride Confirm 04/28/23 22:49 Potassium Chloride Tab 10 Meq Tab Administered 04/28/23 22:50 Dose 20 meq PO .STK-MED ONE Lab/Rad Data: Laboratory Result Diagrams 04/28/23 21:25 04/28/23 21:25 Laboratory Results 04/28/23 04/28/23 04/28/23 Range/Units 21:25 21:25 21:25 WBC 7.5 (4.0-10.5) x10^3/uL RBC 5.49 H (4.1-5.4) x10^6/uL Hgb 12.7 (12.0-16.0) g/dL Hct 42.9 (35-47) % MCV 78.1 (78-100) fL MCH 23.1 L (26-32) pg MCHC 29.6 L (32-36) g/dL RDW 16.9 H (11.5-14.0) % Plt Count 225 (150-450) x10^3/uL MPV 10.7 (7.5-11.0) fL Gran % 68.3 H (36.0-66.0) % Immature Gran % (Auto) 0.3 (0.00-0.4) % Nucleat RBC Rel Count 0.0 (0.00-0.1) % Eos # (Auto) 0.07 (0-0.5) x10^3/uL Immature Gran # (Auto) 0.02 (0.00-0.03) x10^3u/L Absolute Lymphs (auto) 1.75 (1.0-4.6) x10^3/uL Absolute Monos (auto) 0.53 (0.0-1.3) x10^3/uL Absolute Nucleated RBC 0.00 (0.00-0.01) x10^3u/L Lymphocytes % 23.2 L (24.0-44.0) % Monocytes % 7.0 (0.0-12.0) % Eosinophils % 0.9 (0.00-5.0) % Basophils % 0.3 (0.0-0.4) % Absolute Granulocytes 5.14 (1.4-6.9) x10^3/uL Basophils # 0.02 (0-0.4) x10^3/uL Sodium 142 (137-145) mmol/L Potassium 3.1 L (3.5-5.1) mmol/L Chloride 102 (98-107) mmol/L Carbon Dioxide 31 H (22-30) mmol/L Anion Gap 11.7 (5-15) MEQ/L BUN 19 H (7-17) mg/dL Creatinine 0.88 (0.52-1.04) mg/dL Estimated GFR > 60.0 ML/MIN Glucose 155 H (74-106) mg/dL Calcium 9.4 (8.4-10.2) mg/dL Troponin I < 0.012 (0.000-0.034) ng/mL NT-Pro-B Natriuret Pep 1490 (<300) pg/mL - Progress Progress: improved, re-examined Progress Note: 04/28/23 22:56 This patient's medical issue is 1 of moderate complexity. The level complexity in the work-up performed is based on review of the patient's past medical history, review of the patient's medication list, review the patient's drug allergy list, history of present illness and physical findings on examination. This patient's work-up includes a twelve-lead EKG, CBC, CMP, troponin level. I reviewed the results of the work-up. I did not repeat a chest x-ray or CTA of the chest. This patient has had multiple negative work-ups except for low potassium. Today, she has mild hypokalemia with a level of 3.1. I will provide her with 20 mg of potassium chloride tablet. She will follow-up with her primary care provider. We did provide her with a list of accepting nurse practitioners and local doctors. Counseled pt/family regarding: lab results, diagnosis, need for follow-up Medical Desision Making - Diagnostic Testing Diagnostic test were ordered, analyzed, and reviewed by me: Yes - Risk of complications Low Risk: Low risk of morbidity from additional dx testing or treatment - Departure Departure Disposition: Home Clinical Impression: Back pain, Hypokalemia Condition: Stable Critical Care Time: No Referrals: DESTINY MONSIVAIS [Primary Care Provider] - Follow up/PCP as directed Additional Instructions: Call your primary care provider tomorrow, 04/29/2023, to make arranges for further evaluation and management.
[2023-04-28 21:29] LABS: Absolute Neutrophil Ct (ANC) 5.14 x10^3/uL (1.4-6.9); BASOPHIL % 0.3 % (0.0-0.4); Basophil (Absolute #) 0.02 x10^3/uL (0-0.4); Eosinophil % 0.9 % (0.00-5.0); Eosinophil (Absolute #) 0.07 x10^3/uL (0-0.5); Hematocrit 42.9 % (35-47); Hemoglobin 12.7 g/dL (12.0-16.0); IMMATURE GRAN # 0.02 x10^3u/L (0.00-0.03); IMMATURE GRAN % 0.3 % (0.00-0.4); Lymphocyte (Absolute #) 1.75 x10^3/uL (1.0-4.6); Lymphocytes % 23.2 % (24.0-44.0); Mean Cell Volume 78.1 fL (78-100); Mean Corpuscular Hemoglobin 23.1 pg (26-32); Mean Corpuscular Hgb Concent. 29.6 g/dL (32-36); Mean Platelet Volume 10.7 fL (7.5-11.0); Monocyte (Absolute #) 0.53 x10^3/uL (0.0-1.3); Neutrophil % 68.3 % (36.0-66.0); Platelet Count 225 x10^3/uL (150-450); Red Blood Count 5.49 x10^6/uL (4.1-5.4); Red Cell Distribution Width 16.9 % (11.5-14.0); White Blood Count 7.5 x10^3/uL (4.0-10.5)
[2023-04-28 21:52] LABS: ANION GAP 11.7 MEQ/L (5-15); BLOOD UREA NITROGEN 19 mg/dL (7-17); CHLORIDE 102 mmol/L (98-107); Calcium 9.4 mg/dL (8.4-10.2); Carbon Dioxide 31 mmol/L (22-30); Creatinine 1 0.88 mg/dL (0.52-1.04); EST GLOMERULAR FILTRATION RATE > 60.0 ML/MIN; Glucose 155 mg/dL (74-106); NT PRO BNPII 1490 pg/mL (<300); Potassium 3.1 mmol/L (3.5-5.1); SODIUM 142 mmol/L (137-145)
[2023-04-28] MEDS ORDERED: Klor Con PO ONE ×2 (22:42→22:49)
[2023-04-28 23:21] VITALS: BP 140/73; PULSE 74; RESP 20; O2SAT 93
== END 2023-04-28 23:09 | disposition home or self-care (01) ==
LOC: ED 20:58
DX: M54.6 Pain in thoracic spine (principal); E87.6 Hypokalemia; R20.2 Paresthesia of skin; I10 Essential (primary) hypertension; E78.5 Hyperlipidemia, unspecified; E11.9 Type 2 diabetes mellitus without complications; Z79.84 Long term (current) use of oral hypoglycemic drugs; Z79.02 Long term (current) use of antithrombotics/antiplatelets; Z79.4 Long term (current) use of insulin; Z79.899 Other long term (current) drug therapy; Z72.0 Tobacco use
CPT/HCPCS: 36000; 36415; 80048; 83880; 84484; 85025; 93005; 94760; 99284; A9270-GY

== ENCOUNTER 2023-05-07 15:46 | Emergency (ER) | payer OTHER ==
[2023-05-07 16:09] VITALS: TEMP 98.8
[2023-05-07] MEDS ORDERED: Klor Con PO ONE ×2 (16:13→16:31)
[2023-05-07 16:23] LABS: Absolute Neutrophil Ct (ANC) 7.13 x10^3/uL (1.4-6.9); BASOPHIL % 0.2 % (0.0-0.4); Basophil (Absolute #) 0.02 x10^3/uL (0-0.4); Eosinophil % 0.4 % (0.00-5.0); Eosinophil (Absolute #) 0.04 x10^3/uL (0-0.5); Hematocrit 40.9 % (35-47); Hemoglobin 12.3 g/dL (12.0-16.0); IMMATURE GRAN # 0.03 x10^3u/L (0.00-0.03); IMMATURE GRAN % 0.3 % (0.00-0.4); Lymphocyte (Absolute #) 1.63 x10^3/uL (1.0-4.6); Lymphocytes % 17.7 % (24.0-44.0); Mean Cell Volume 76.4 fL (78-100); Mean Corpuscular Hgb Concent. 30.1 g/dL (32-36); Mean Platelet Volume 10.3 fL (7.5-11.0); Monocyte (Absolute #) 0.38 x10^3/uL (0.0-1.3); Monocytes % 4.1 % (0.0-12.0); Neutrophil % 77.3 % (36.0-66.0); Platelet Count 206 x10^3/uL (150-450); Red Blood Count 5.35 x10^6/uL (4.1-5.4); Red Cell Distribution Width 16.6 % (11.5-14.0); White Blood Count 9.2 x10^3/uL (4.0-10.5)
[2023-05-07 16:48] LABS: ALBUMIN 4.1 g/dL (3.5-5.0); ALKALINE PHOSPHATASE 100 U/L (38-126); ANION GAP 15.1 MEQ/L (5-15); BLOOD UREA NITROGEN 21 mg/dL (7-17); CHLORIDE 103 mmol/L (98-107); Calcium 9.1 mg/dL (8.4-10.2); Carbon Dioxide 27 mmol/L (22-30); Creatinine 1 0.94 mg/dL (0.52-1.04); EST GLOMERULAR FILTRATION RATE > 60.0 ML/MIN; Glucose 186 mg/dL (74-106); SGOT/AST 18 U/L (14-36); SGPT/ALT 17 U/L (0-35); SODIUM 142 mmol/L (137-145)
[2023-05-07 17:03] LABS: Potassium 2.7 mmol/L (3.5-5.1)
[2023-05-07] MEDS ORDERED: Sodium Chloride 0.9% 1000 ML 1,000 ML ONE (17:11)
[2023-05-07] MEDS ORDERED: POTASSIUM CHLORIDE 20 mEq IN WATER 100ML 200 ML IV ONE (17:11)
[2023-05-07] MEDS ORDERED: Sodium Chloride 0.9% 1000 ML 1,000 ML IV SCH (17:15)
[2023-05-07] MEDS: POTASSIUM CHLORIDE 20 mEq IN WATER 100ML 20 MEQ/100 ML BAG IV SCH ×2 (17:15→19:16)
--- NOTE | 2023-05-07 17:53 | ERPHSYRPT ---
- History of Present Illness Source: patient Exam Limitations: no limitations Patient Subjective Stated Complaint: PT states "I had my labs drawn today and my potassium is low." Triage Nursing Assessment: PT presented alert and oriented X3, skin pwd. Pt ambulates with a slow gait. PT is obese female able to speak in clear full sentences. PT resting comfortably on the bed. Hx Tetanus, Diphtheria Vaccination/Date Given: No Hx Influenza Vaccination/Date Given: Yes Hx Pneumococcal Vaccination/Date Given: Yes <JOSE MICHELLE - Last Filed: 05/07/23 17:50> <GARY RASMUSSEN - Last Filed: 05/07/23 21:49> - History of Present Illness Time Seen by Provider: 05/07/23 16:12 Physician History: Patient asymptomatic, had labs drawn today for bronchitis. Had potassium of 2.8. Sent into the emergency department for replacement. No falls no trauma no other symptoms. Patient is on diuretics. Most likely the source of her potassium loss. No nausea vomiting has otherwise been taking p.o. without difficulty. No fever, chills, chest pain, shortness of breath today (JOSE MICHELLE) Allergies/Adverse Reactions: aspirin Allergy (Mild, Verified 04/28/23 21:02) Sulfa (Sulfonamide Antibiotics) Allergy (Mild, Verified 04/28/23 21:02) shellfish derived Allergy (Verified 04/28/23 21:02) Itching rash Home Medications: Diltiazem HCl [Diltiazem 12Hr ER] 60 mg PO TID 12/11/17 [History] Gabapentin 100 mg PO BID 11/03/20 [History] Atorvastatin Calcium 80 mg PO DAILY 12/07/22 [History] Empagliflozin [Jardiance] 10 mg PO DAILY 12/07/22 [History] Famotidine 40 mg PO QHS 01/03/23 [History] Sacubitril/Valsartan [Entresto 24 mg-26 mg Tablet] 1 tab PO BID 01/03/23 [History] Albuterol Sulfate [Albuterol Sulfate Hfa] 2 puff PO Q4-6HPRN PRN 03/23/23 [History] Clopidogrel Bisulfate [PLAVIX Tablet] 75 mg PO DAILY 03/23/23 [History] Carvedilol [Coreg] 25 mg PO DAILY 04/28/23 [History] Ergocalciferol (Vitamin D2) [Vitamin D2] 50,000 units PO WEEKLY 04/28/23 [History] Insulin Glargine,Hum.rec.anlog [Lantus] 40 unit SQ QHS 04/28/23 [History] Montelukast Sodium 10 mg PO DAILY 04/28/23 [History] Travel Risk - International Travel Have you traveled outside of the country in past 3 weeks: No - Coronavirus Screening Are you exhibiting any of the following symptoms?: No Close contact with a COVID-19 positive Pt in past 14-21 Days: No - Vaccine Status Have you recieved a Covid-19 vaccination: Yes [employer]: [employer] - Vaccination Dates Date of 2cond Vaccination (if applicable): UNKNOWN <JOSE MICHELLE - Last Filed: 05/07/23 17:50> - Review of Systems Constitutional: No Fever, No Chills Eyes: No Symptoms Ears, Nose, & Throat: No Symptoms Respiratory: No Cough, No Dyspnea Cardiac: No Chest Pain, No Edema, No Syncope Abdominal/Gastrointestinal: No Abdominal Pain, No Nausea, No Vomiting, No Diarrhea Genitourinary Symptoms: No Dysuria Musculoskeletal: No Back Pain, No Neck Pain Skin: No Rash Neurological: No Dizziness, No Focal Weakness, No Sensory Changes Psychological: No Symptoms Endocrine: No Symptoms All Other Systems: Reviewed and Negative <JOSE MICHELLE - Last Filed: 05/07/23 17:50> - Past Medical History Pertinent Past Medical History: Yes Neurological History: No Pertinent History ENT History: No Pertinent History Cardiac History: Arrhythmia, Coronary Artery Disease, High Cholesterol, Hypertension, Myocardial Infarction ([place]) Respiratory History: No Pertinent History Endocrine Medical History: Diabetes Type II Musculoskeletal History: Fractures GI Medical History: Gallbladder Disease History: No Pertinent History Psycho-Social History: No Pertinent History Female Reproductive Disorders: No Pertinent History Other Medical History: spot on your lung - Past Surgical History Past Surgical History: Yes Neuro Surgical History: No Pertinent History Cardiac: Cardiac Catheterization, Cardiac Stent, Internal Defibrillator, Pacemaker Respiratory: No Pertinent History Gastrointestinal: Cholecystectomy Genitourinary: No Pertinent History Musculoskeletal: Orthopedic Surgery Female Surgical History: Section, Tubal Ligation Other Surgical History: HEART CATH AND STENT IN MAY 2013, AICD, plate put in left femur due to fractured femur - Social History Smoking Status: Current every day smoker How long have you smoked: 46 yrs Exposure to second hand smoke: Yes Drug Use: none Patient Lives Alone: No <JOSE MICHELLE - Last Filed: 05/07/23 17:50> - Physical Exam General Appearance: no apparent distress, alert Eye Exam: PERRL/EOMI, eyes nml inspection Ears, Nose, Throat Exam: normal ENT inspection, TMs normal, pharynx normal, moist mucous membranes Neck Exam: normal inspection, non-tender, supple, full range of motion Respiratory Exam: normal breath sounds, lungs clear, No respiratory distress Cardiovascular Exam: regular rate/rhythm, normal heart sounds, normal peripheral pulses, other (2+ lower extremity swelling, at baseline per patient) Gastrointestinal/Abdomen Exam: soft, normal bowel sounds, No tenderness, No mass Back Exam: normal inspection, normal range of motion, No CVA tenderness, No vertebral tenderness Extremity Exam: normal inspection, normal range of motion, pelvis stable Neurologic Exam: alert, oriented x 3, cooperative, normal mood/affect, nml cerebellar function, nml station & gait, sensation nml, No motor deficits Skin Exam: normal color, warm, dry, No rash Lymphatic Exam: No adenopathy SpO2: 98 <JOSE MICHELLE - Last Filed: 05/07/23 17:50> - Nursing Vital Signs Nursing Vital Signs: Initial Vital Signs Temperature 98.8 F 05/07/23 16:05 Pulse Rate 78 05/07/23 16:05 Respiratory Rate 20 05/07/23 16:05 Blood Pressure 119/76 05/07/23 16:05 O2 Sat by Pulse Oximetry 95 05/07/23 16:05 Pain Scale Pain Intensity 4 - Course Nursing assessment & vital signs reviewed: Yes EKG Interpreted by Me: Sinus Rhythm (No obvious EKG changes consistent with low potassium) <JOSE MICHELLE - Last Filed: 05/07/23 17:50> Ordered Tests: Active Orders 24 hr Category Date Time Status EKG-ER Only STAT Care 05/07/23 16:12 Active IV Insertion STAT Care 05/07/23 16:12 Active Telemetry q4h Care 05/07/23 17:04 Active CBC W DIFF Stat Lab 05/07/23 16:15 Completed CMP Stat Lab 05/07/23 16:15 Completed Potassium Stat Lab 05/07/23 20:46 Completed Medication Summary Generic Name Dose Route Start Last Admin Trade Name Freq PRN Reason Stop Dose Admin Potassium Chloride 20 meq in 100 mls @ 50 mls/hr 05/07/23 17:15 05/07/23 19:16 Potassium Chloride 20 Meq In Water 100ml IV 05/07/23 21:14 50 mls/hr Q2H NADINE Administration Sodium Chloride 1,000 mls @ 100 mls/hr 05/07/23 17:15 05/07/23 17:15 Sodium Chloride 0.9% 1000 Ml IV 06/06/23 17:14 100 mls/hr .Q10H NADINE Administration Discontinued Medications Generic Name Dose Route Start Last Admin Trade Name Wandy PRN Reason Stop Dose Admin Sodium Chloride Confirm 05/07/23 17:11 Sodium Chloride 0.9% 1000 Ml Administered 05/07/23 17:12 Dose 1,000 mls @ ud .ROUTE .STK-MED ONE Potassium Chloride 40 meq 05/07/23 16:13 05/07/23 16:33 Potassium Chloride Tab 10 Meq Tab PO 05/07/23 16:14 40 meq STAT ONE Administration Potassium Chloride Confirm 05/07/23 16:31 Potassium Chloride Tab 10 Meq Tab Administered 05/07/23 16:32 Dose 40 meq PO .STK-MED ONE Lab/Rad Data: Laboratory Result Diagrams 05/07/23 16:15 05/07/23 20:46 Laboratory Results 05/07/23 05/07/23 05/07/23 Range/Units 20:46 16:15 16:15 WBC 9.2 (4.0-10.5) x10^3/uL RBC 5.35 (4.1-5.4) x10^6/uL Hgb 12.3 (12.0-16.0) g/dL Hct 40.9 (35-47) % MCV 76.4 L (78-100) fL MCH 23.0 L (26-32) pg MCHC 30.1 L (32-36) g/dL RDW 16.6 H (11.5-14.0) % Plt Count 206 (150-450) x10^3/uL MPV 10.3 (7.5-11.0) fL Gran % 77.3 H (36.0-66.0) % Immature Gran % (Auto) 0.3 (0.00-0.4) % Nucleat RBC Rel Count 0.0 (0.00-0.1) % Eos # (Auto) 0.04 (0-0.5) x10^3/uL Immature Gran # (Auto) 0.03 (0.00-0.03) x10^3u/L Absolute Lymphs (auto) 1.63 (1.0-4.6) x10^3/uL Absolute Monos (auto) 0.38 (0.0-1.3) x10^3/uL Absolute Nucleated RBC 0.00 (0.00-0.01) x10^3u/L Lymphocytes % 17.7 L (24.0-44.0) % Monocytes % 4.1 (0.0-12.0) % Eosinophils % 0.4 (0.00-5.0) % Basophils % 0.2 (0.0-0.4) % Absolute Granulocytes 7.13 H (1.4-6.9) x10^3/uL Basophils # 0.02 (0-0.4) x10^3/uL Sodium 142 (137-145) mmol/L Potassium 3.5 D 2.7 L* (3.5-5.1) mmol/L Chloride 103 (98-107) mmol/L Carbon Dioxide 27 (22-30) mmol/L Anion Gap 15.1 H (5-15) MEQ/L BUN 21 H (7-17) mg/dL Creatinine 0.94 (0.52-1.04) mg/dL Estimated GFR > 60.0 ML/MIN Glucose 186 H (74-106) mg/dL Calcium 9.1 (8.4-10.2) mg/dL Total Bilirubin 0.70 (0.2-1.3) mg/dL AST 18 (14-36) U/L ALT 17 (0-35) U/L Alkaline Phosphatase 100 (38-126) U/L Serum Total Protein 7.0 (6.3-8.2) g/dL Albumin 4.1 (3.5-5.0) g/dL - Progress Progress: improved Counseled pt/family regarding: lab results, diagnosis, need for follow-up <JOSE MICHELLE - Last Filed: 05/07/23 17:50> - Progress Progress: improved <GARY RASMUSSEN - Last Filed: 05/07/23 21:49> - Progress Progress Note: 05/07/23 17:51 Patient's potassium is 2.7 here. Plan for oral and IV replacement. No other obvious sinister pathology, other basic labs, EKG unremarkable. Transfer of care to Dr. Gary Rasmussen at 6 PM. He will follow-up on all labs and imaging. Disposition per these and is reexam. (JOSE MICHELLE) Medical Desision Making - Diagnostic Testing Radiological Interpretation: Reviewed by me - Risk of complications Minimal Risk: Minimal risk of morbidity <GARY RASMUSSEN - Last Filed: 05/07/23 21:49> - Departure Critical Care Time: No <JOSE MICHELLE - Last Filed: 05/07/23 17:50> - Departure Departure Disposition: Home Critical Care Time: No <GARY RASMUSSEN - Last Filed: 05/07/23 21:49> - Departure Clinical Impression: Hypokalemia Condition: Stable Referrals: DESTINY MONSIVAIS [Primary Care Provider] - Follow up/PCP as directed Prescriptions: Potassium Chloride Tab* [Klor Con] 10 meq PO DAILY #5 tab
[2023-05-07 21:40] VITALS: BP 144/93; PULSE 80; RESP 19; O2SAT 96
== END 2023-05-07 21:57 | disposition home or self-care (01) ==
LOC: ED 15:46
DX: E87.6 Hypokalemia (principal); E78.5 Hyperlipidemia, unspecified; I10 Essential (primary) hypertension; E11.9 Type 2 diabetes mellitus without complications; Z79.84 Long term (current) use of oral hypoglycemic drugs; Z79.02 Long term (current) use of antithrombotics/antiplatelets; Z79.4 Long term (current) use of insulin; Z79.899 Other long term (current) drug therapy; Z72.0 Tobacco use
CPT/HCPCS: 36000; 36415; 80053; 84132; 85025; 93005; 99284; J3480; A9270-GY

== ENCOUNTER 2023-07-07 20:01 | Emergency (ER) | payer OTHER ==
[2023-07-07 20:22] VITALS: TEMP 98.3
[2023-07-07 20:37] LABS: BASOPHIL % 0.3 % (0.0-0.4); Basophil (Absolute #) 0.03 x10^3/uL (0-0.4); Eosinophil % 0.7 % (0.00-5.0); Eosinophil (Absolute #) 0.07 x10^3/uL (0-0.5); Hematocrit 46.3 % (35-47); Hemoglobin 14.2 g/dL (12.0-16.0); IMMATURE GRAN # 0.03 x10^3u/L (0.00-0.03); IMMATURE GRAN % 0.3 % (0.00-0.4); Lymphocyte (Absolute #) 2.37 x10^3/uL (1.0-4.6); Lymphocytes % 25.1 % (24.0-44.0); Mean Cell Volume 76.8 fL (78-100); Mean Corpuscular Hemoglobin 23.5 pg (26-32); Mean Corpuscular Hgb Concent. 30.7 g/dL (32-36); Mean Platelet Volume 10.5 fL (7.5-11.0); Monocyte (Absolute #) 0.53 x10^3/uL (0.0-1.3); Monocytes % 5.6 % (0.0-12.0); Platelet Count 200 x10^3/uL (150-450); Red Blood Count 6.03 x10^6/uL (4.1-5.4); Red Cell Distribution Width 19.2 % (11.5-14.0); White Blood Count 9.4 x10^3/uL (4.0-10.5)
[2023-07-07 20:51] LABS: ALBUMIN 4.2 g/dL (3.5-5.0); ANION GAP 11.8 MEQ/L (5-15); BILIRUBIN,TOTAL 0.6 mg/dL (0.2-1.3); Calcium 9.4 mg/dL (8.4-10.2); Creatinine 1 1.03 mg/dL (0.52-1.04); EST GLOMERULAR FILTRATION RATE 59.4 ML/MIN; Potassium 3.6 mmol/L (3.5-5.1); Total Protein 7.4 g/dL (6.3-8.2)
--- NOTE | 2023-07-07 20:51 | ERPHSYRPT ---
- History of Present Illness Historian: patient Exam Limitations: no limitations Patient Subjective Stated Complaint: pt reports at approx 3pm today she started having epigastric discomfort described as burning and sharp pain intermittently. Complains of nausea, denies vomiting. Triage Nursing Assessment: Pt alert and oriented x3. No apparent respiratory distress. Wheeled to ED cot by family, transferred from chair to cot with assist x1. Skin w/p/d. Abdomen soft/round/nontender. Active bowel sounds in all four quads. Physician History: 52 yo WF w epigastric pain since 1500 today. Pain is 7/10, sharp, and nothing makes it better or worse. She has nausea wo vomiting/diarrhea/melena/hematochezia/fever. Pt does have dysuria wo hematuria. Surgeries include nirmala/c-sections and medical problems include DM/HTN/0.5 ppd smoker/[place]/stent/AICD. She denies chest pain/dyspnea. Timing/Duration: other (1499 today) Activities at Onset: rest Quality: sharpness Abdominal Pain Onset Location: epigastric Pain Radiation: no radiation Severity of Pain-Max: severe Severity of Pain-Current: moderate Associated Symptoms: denies symptoms, nausea Previous symptoms: no prior history Allergies/Adverse Reactions: aspirin Allergy (Mild, Verified 07/07/23 20:15) Sulfa (Sulfonamide Antibiotics) Allergy (Mild, Verified 07/07/23 20:15) shellfish derived Allergy (Verified 07/07/23 20:15) Itching rash Home Medications: Diltiazem HCl [Diltiazem 12Hr ER] 60 mg PO TID 12/11/17 [History] Gabapentin 100 mg PO BID 11/03/20 [History] Atorvastatin Calcium 80 mg PO DAILY 12/07/22 [History] Empagliflozin [Jardiance] 10 mg PO DAILY 12/07/22 [History] Famotidine 40 mg PO QHS 01/03/23 [History] Sacubitril/Valsartan [Entresto 24 mg-26 mg Tablet] 1 tab PO BID 01/03/23 [History] Albuterol Sulfate [Albuterol Sulfate Hfa] 2 puff PO Q4-6HPRN PRN 03/23/23 [History] Clopidogrel Bisulfate [PLAVIX Tablet] 75 mg PO DAILY 03/23/23 [History] Insulin Glargine,Hum.rec.anlog [Lantus] 46 unit SQ QHS 04/28/23 [History] Montelukast Sodium 10 mg PO DAILY 04/28/23 [History] carvediloL [Coreg] 25 mg PO DAILY 04/28/23 [History] Ascorbic Acid [Vitamin C] 1,000 mg PO DAILY 07/07/23 [History] Cetirizine HCl 10 mg PO DAILY 07/07/23 [History] Cholecalciferol (Vitamin D3) [Vitamin D3 Max] 50,000 unit PO WEEKLY 07/07/23 [History] Insulin Lispro [Humalog Kwikpen U-100] See Rx Instructions .ROUTE .COMPLEX 07/07/23 [History] Potassium Chloride Tab* [Klor Con] 10 meq PO BID 07/07/23 [History] Hx Tetanus, Diphtheria Vaccination/Date Given: Yes Hx Influenza Vaccination/Date Given: (unknown) Hx Pneumococcal Vaccination/Date Given: Yes Travel Risk - International Travel Have you traveled outside of the country in past 3 weeks: No - Coronavirus Screening Are you exhibiting any of the following symptoms?: No Close contact with a COVID-19 positive Pt in past 14-21 Days: No - Vaccine Status Have you recieved a Covid-19 vaccination: Yes [employer]: [employer] - Vaccination Dates Date of 2cond Vaccination (if applicable): UNKNOWN - Review of Systems Constitutional: No Symptoms Eyes: No Symptoms Ears, Nose, & Throat: No Symptoms Respiratory: No Symptoms Cardiac: No Symptoms Abdominal/Gastrointestinal: No Symptoms, Abdominal Pain, Nausea Genitourinary Symptoms: No Symptoms Musculoskeletal: No Symptoms Skin: No Symptoms Neurological: No Symptoms Psychological: No Symptoms Endocrine: No Symptoms Hematologic/Lymphatic: No Symptoms Immunological/Allergic: No Symptoms - Past Medical History Pertinent Past Medical History: Yes Neurological History: No Pertinent History ENT History: No Pertinent History Cardiac History: Arrhythmia, Coronary Artery Disease, High Cholesterol, Hypertension, Myocardial Infarction ([place]) Respiratory History: No Pertinent History Endocrine Medical History: Diabetes Type II Musculoskeletal History: Fractures GI Medical History: Gallbladder Disease History: No Pertinent History Psycho-Social History: No Pertinent History Female Reproductive Disorders: No Pertinent History Other Medical History: spot on your lung, hypokalemia, a-fib - Past Surgical History Past Surgical History: Yes Neuro Surgical History: No Pertinent History Cardiac: Cardiac Catheterization, Cardiac Stent, Internal Defibrillator, Pacemaker Respiratory: No Pertinent History Gastrointestinal: Cholecystectomy Genitourinary: No Pertinent History Musculoskeletal: Orthopedic Surgery Female Surgical History: Section, Tubal Ligation Other Surgical History: HEART CATH AND STENT IN MAY 2013, AICD, plate put in left femur due to fractured femur - Social History Smoking Status: Current every day smoker How long have you smoked: 46 yrs Exposure to second hand smoke: Yes Drug Use: none Patient Lives Alone: No - Nursing Vital Signs Nursing Vital Signs: Initial Vital Signs Blood Pressure 128/69 07/07/23 20:08 Pain Scale Pain Intensity 8 WNL - Physical Exam General Appearance: no apparent distress Eye Exam: PERRL/EOMI, eyes nml inspection Ears, Nose, Throat Exam: normal ENT inspection, TMs normal, pharynx normal, moist mucous membranes, tonsillar exudate Neck Exam: normal inspection, non-tender, supple, No meningismus, No mass, No Brudzinski, No Kernig's, No carotid bruit Respiratory Exam: normal breath sounds, lungs clear, airway intact Cardiovascular Exam: regular rate/rhythm, normal heart sounds, normal peripheral pulses, capillary refill <2 sec, No murmur Gastrointestinal/Abdomen Exam: soft, normal bowel sounds, tenderness (Moderate epigastric TTP wo guarding or rebound) Back Exam: normal inspection, normal range of motion, No CVA tenderness, No vertebral tenderness Extremity Exam: normal inspection, normal range of motion Neurologic Exam: alert, oriented x 3, cooperative, ldr nurse II-XII nml as tested, normal mood/affect, sensation nml Skin Exam: normal color, warm, dry Lymphatic Exam: No adenopathy SpO2 Interpretation: normal SpO2: 94 O2 Delivery: Room Air - Course Nursing assessment & vital signs reviewed: Yes EKG Interpreted by Me: RATE (NSR/rate 89/IVCD/Old anterior [place]/LAFB/prolonged QTc/nonspecific ST changes) - CT Exams Abdomen/Pelvis CT Interpretation: Discussed w/radiologist (Hepatomegaly/B renal cysts/Nothing acute) Ordered Tests: Active Orders 24 hr Category Date Time Status EKG-ER Only STAT Care 07/07/23 20:08 Active IV Insertion STAT Care 07/07/23 20:08 Active ABDOMEN AND PELVIS W CONTRAST [CT] Stat Exams 07/07/23 21:34 Taken AMYLASE Stat Lab 07/07/23 20:25 Completed CBC W DIFF Stat Lab 07/07/23 20:25 Completed CMP Stat Lab 07/07/23 20:25 Completed LIPASE Stat Lab 07/07/23 20:25 Completed Lactic Acid Stat Lab 07/07/23 20:42 Completed TROPONIN Q4H Lab 07/07/23 20:25 Completed TROPONIN Q4H Lab 07/08/23 00:15 Ordered TROPONIN Q4H Lab 07/08/23 04:15 Ordered UA W/RFX UR CULTURE Stat Lab 07/07/23 20:09 Ordered Medication Summary Discontinued Medications Generic Name Dose Route Start Last Admin Trade Name Wandy PRN Reason Stop Dose Admin Ketorolac Tromethamine 15 mg 07/07/23 21:51 07/07/23 21:53 Ketorolac Tromethamine 30 Mg/Ml Inj IV 07/07/23 21:52 15 mg STAT ONE Administration Ketorolac Tromethamine Confirm 07/07/23 21:51 Ketorolac Tromethamine 30 Mg/Ml Inj Administered 07/07/23 21:52 Dose 30 mg .ROUTE .[employer]-MED ONE Lab/Rad Data: Laboratory Result Diagrams 07/07/23 20:25 07/07/23 20:25 Laboratory Results 07/07/23 07/07/23 07/07/23 Range/Units 20:42 20:25 20:25 WBC (4.0-10.5) x10^3/uL RBC (4.1-5.4) x10^6/uL Hgb (12.0-16.0) g/dL Hct (35-47) % MCV (78-100) fL MCH (26-32) pg MCHC (32-36) g/dL RDW (11.5-14.0) % Plt Count (150-450) x10^3/uL MPV (7.5-11.0) fL Gran % (36.0-66.0) % Immature Gran % (Auto) (0.00-0.4) % Nucleat RBC Rel Count (0.00-0.1) % Eos # (Auto) (0-0.5) x10^3/uL Immature Gran # (Auto) (0.00-0.03) x10^3u/L Absolute Lymphs (auto) (1.0-4.6) x10^3/uL Absolute Monos (auto) (0.0-1.3) x10^3/uL Absolute Nucleated RBC (0.00-0.01) x10^3u/L Lymphocytes % (24.0-44.0) % Monocytes % (0.0-12.0) % Eosinophils % (0.00-5.0) % Basophils % (0.0-0.4) % Absolute Granulocytes (1.4-6.9) x10^3/uL Basophils # (0-0.4) x10^3/uL Sodium 138 (137-145) mmol/L Potassium 3.6 (3.5-5.1) mmol/L Chloride 103 (98-107) mmol/L Carbon Dioxide 26 (22-30) mmol/L Anion Gap 11.8 (5-15) MEQ/L BUN 22 H (7-17) mg/dL Creatinine 1.03 (0.52-1.04) mg/dL Estimated GFR 59.4 ML/MIN Glucose 122 H (74-106) mg/dL Lactic Acid 1.4 (0.4-2.0) Calcium 9.4 (8.4-10.2) mg/dL Total Bilirubin 0.60 (0.2-1.3) mg/dL AST 21 (14-36) U/L ALT 19 (0-35) U/L Alkaline Phosphatase 144 H (38-126) U/L Troponin I < 0.012 (0.000-0.034) ng/mL Serum Total Protein 7.4 (6.3-8.2) g/dL Albumin 4.2 (3.5-5.0) g/dL Amylase 57 (30-110) U/L Lipase 68 (23-300) U/L 07/07/ Range/Units 20:25 WBC 9.4 (4.0-10.5) x10^3/uL RBC 6.03 H (4.1-5.4) x10^6/uL Hgb 14.2 (12.0-16.0) g/dL Hct 46.3 (35-47) % MCV 76.8 L (78-100) fL MCH 23.5 L (26-32) pg MCHC 30.7 L (32-36) g/dL RDW 19.2 H (11.5-14.0) % Plt Count 200 (150-450) x10^3/uL MPV 10.5 (7.5-11.0) fL Gran % 68.0 H (36.0-66.0) % Immature Gran % (Auto) 0.3 (0.00-0.4) % Nucleat RBC Rel Count 0.0 (0.00-0.1) % Eos # (Auto) 0.07 (0-0.5) x10^3/uL Immature Gran # (Auto) 0.03 (0.00-0.03) x10^3u/L Absolute Lymphs (auto) 2.37 (1.0-4.6) x10^3/uL Absolute Monos (auto) 0.53 (0.0-1.3) x10^3/uL Absolute Nucleated RBC 0.00 (0.00-0.01) x10^3u/L Lymphocytes % 25.1 (24.0-44.0) % Monocytes % 5.6 (0.0-12.0) % Eosinophils % 0.7 (0.00-5.0) % Basophils % 0.3 (0.0-0.4) % Absolute Granulocytes 6.40 (1.4-6.9) x10^3/uL Basophils # 0.03 (0-0.4) x10^3/uL Sodium (137-145) mmol/L Potassium (3.5-5.1) mmol/L Chloride (98-107) mmol/L Carbon Dioxide (22-30) mmol/L Anion Gap (5-15) MEQ/L BUN (7-17) mg/dL Creatinine (0.52-1.04) mg/dL Estimated GFR ML/MIN Glucose (74-106) mg/dL Lactic Acid (0.4-2.0) Calcium (8.4-10.2) mg/dL Total Bilirubin (0.2-1.3) mg/dL AST (14-36) U/L ALT (0-35) U/L Alkaline Phosphatase (38-126) U/L Troponin I (0.000-0.034) ng/mL Serum Total Protein (6.3-8.2) g/dL Albumin (3.5-5.0) g/dL Amylase (30-110) U/L Lipase (23-300) U/L - Progress Progress Note: 10/23/23 22:41 Nursing note and vital signs reviewed No food or housing insecurities notes All lab results reviewed and shared w pt CT result reviewed and shared w pt 15mg IV Toradol w improvement in pain Etiology of pain unclear, but no evidence of surgical abdomen on serial exams Counseled pt/family regarding: lab results, diagnosis, need for follow-up, rad results Medical Desision Making - Independent Historian Additional History obtained from: Child - Diagnostic Testing Diagnostic test were ordered, analyzed, and reviewed by me: Yes Radiological Interpretation: Reviewed by me - Risk of complications Low Risk: Low risk of morbidity from additional dx testing or treatment - Departure Departure Disposition: Home Clinical Impression: Abdominal pain Condition: Stable Critical Care Time: No Referrals: DESTINY MONSIVAIS [Primary Care Provider] - Follow up/PCP as directed Instructions: Severe Abdominal Pain, Adult (DC) Additional Instructions: Return to ER for increasing pain or temperature greater than 100.5 Follow up with your family
[2023-07-07] MEDS ORDERED: TORAdol 30 mg Injection ONE (21:51)
[2023-07-07] MEDS ORDERED: TORAdol 30 mg Injection IV ONE (21:51)
[2023-07-07 22:43] VITALS: BP 127/74; PULSE 82; RESP 17
[2023-07-07 22:57] VITALS: O2SAT 94
--- NOTE | 2023-07-08 08:49 | XRAY ---
Indication: Epigastric pain. Multiple contiguous axial images obtained through the abdomen and pelvis using 100 cc Isovue 370 contrast. Comparison: July 17, 2021 Lung bases clear. Heart not enlarged. Noncontrasted stomach and bowel loops appear nonobstructed with normal appearing appendix. Again 22 cm hepatomegaly, tiny bilateral renal cysts, and cholecystectomy. Interval hysterectomy. No free fluid/air. Remaining liver, pancreas, spleen, adrenal glands, kidneys, ureters, and bladder are unremarkable for noncontrast exam. Again minimal aortoiliac calcifications. No AAA or pathologic retroperitoneal lymphadenopathy. Osseous structures intact again with mild degenerative changes throughout the spine and minimal dextroscoliosis. Impression: 1. Stable hepatomegaly, bilateral renal cysts, arteriosclerotic disease, and chronic bony findings. 2. Remaining CT abdomen/pelvis with contrast exam is again negative.
== END 2023-07-07 22:50 | disposition home or self-care (01) ==
LOC: ED 20:01
DX: R10.13 Epigastric pain (principal); R11.0 Nausea; R30.0 Dysuria; E11.9 Type 2 diabetes mellitus without complications; I10 Essential (primary) hypertension; E78.5 Hyperlipidemia, unspecified; Z79.84 Long term (current) use of oral hypoglycemic drugs; Z79.02 Long term (current) use of antithrombotics/antiplatelets; Z79.4 Long term (current) use of insulin; Z79.899 Other long term (current) drug therapy; Z72.0 Tobacco use
CPT/HCPCS: 36000; 36415; 74177; 80053; 82150; 83605; 83690; 84484; 85025; 93005; 96374; 99284; J1885

== ENCOUNTER 2023-08-21 15:09 | Emergency (ER) | payer OTHER ==
[2023-08-21 15:41] VITALS: O2SAT 97
[2023-08-21] MEDS ORDERED: Zofran 4 MG/2 ML VIAL IV ONE (15:42)
[2023-08-21] MEDS ORDERED: PROTONIX 40 MG IV IV ONE ×2 (15:42→15:56)
[2023-08-21] MEDS ORDERED: TYLENOL 325 MG PO ONE (15:42)
[2023-08-21] MEDS ORDERED: GI COCKTAIL 45 ML (Maalox/Lidocaine) PO ONE (15:44)
[2023-08-21] MEDS ORDERED: Zofran 4 MG/2 ML VIAL ONE (15:56)
[2023-08-21] MEDS ORDERED: TYLENOL 325 MG ONE (15:56)
[2023-08-21] MEDS ORDERED: XYLOCAINE VISCOUS 2% 15 ML CUP ONE (15:56)
[2023-08-21] MEDS ORDERED: MAALOX ES 30 ML UNIT DOSE ONE (15:57)
--- NOTE | 2023-08-21 16:01 | ERPHSYRPT ---
- History of Present Illness Time Seen by Provider: 08/21/23 15:16 Historian: patient Exam Limitations: no limitations Patient Subjective Stated Complaint: abdominal pain Triage Nursing Assessment: PATIENT REPORTS TO ER WITH C/O ABDOMINAL PAIN TO [facility] ABDOMEN RATING PAIN 7/10 AND CONSTANT. PATIENT STATES PAIN STARTED YESTERDAY EVENING AND DENIES TAKING ANY OVER THE COUNTER MEDICATION. PATIENT STATES IT FEELS LIKE "INDIGESTION" BUT SHE WAS CONCERNED SINCE SHE HAS A CARDIAC HISTORY. PATIENT REPORTS THAT SHE HAS BEEN NAUSEATED WELL BUT HAS NOT VOMITED. PATIENT REPORTS THAT SHE HAD A REGULAR BOWEL MOVEMENT THIS MORNING. BOWEL SOUNDS ACTIVE X 4 QUADS AND ABDOMEND SOFT/TENDER TO TOUCH. Physician History: 53 years old morbidly obese female with multiple medical problems including hypertension-, hyperlipidemia, coronary artery disease with stenting, atrial fibrillation on Xarelto, diabetes mellitus presented in the ER with chief complaint of epigastric discomfort which patient describes as indigestion with d ull aching moderate to severe pain since yesterday with progressive worsening. Patient reports associated nausea but no vomiting. She has been taking Pepcid with no significant relief. Denies any chest pain palpitations or shortness of breath. No fever or chills reported. Denies any known sick contact. Allergies/Adverse Reactions: aspirin Allergy (Mild, Verified 08/21/23 15:29) Sulfa (Sulfonamide Antibiotics) Allergy (Mild, Verified 08/21/23 15:29) shellfish derived Allergy (Verified 08/21/23 15:29) Itching rash Home Medications: Diltiazem HCl [Diltiazem 12Hr ER] 60 mg PO TID 12/11/17 [History] Gabapentin 100 mg PO BID 11/03/20 [History] Atorvastatin Calcium 80 mg PO DAILY 12/07/22 [History] Empagliflozin [Jardiance] 10 mg PO DAILY 12/07/22 [History] Famotidine 40 mg PO QHS 01/03/23 [History] Sacubitril/Valsartan [Entresto 24 mg-26 mg Tablet] 1 tab PO BID 01/03/23 [History] Albuterol Sulfate [Albuterol Sulfate Hfa] 2 puff PO Q4-6HPRN PRN 03/23/23 [History] Clopidogrel Bisulfate [PLAVIX Tablet] 75 mg PO DAILY 03/23/23 [History] Insulin Glargine,Hum.rec.anlog [Lantus] 46 unit SQ QHS 04/28/23 [History] Montelukast Sodium 10 mg PO DAILY 04/28/23 [History] carvediloL [Coreg] 25 mg PO DAILY 04/28/23 [History] Ascorbic Acid [Vitamin C] 1,000 mg PO DAILY 07/07/23 [History] Cetirizine HCl 10 mg PO DAILY 07/07/23 [History] Cholecalciferol (Vitamin D3) [Vitamin D3 Max] 50,000 unit PO WEEKLY 07/07/23 [History] Insulin Lispro [Humalog Kwikpen U-100] See Rx Instructions .ROUTE .COMPLEX 07/07/23 [History] Potassium Chloride Tab* [Klor Con] 10 meq PO BID 07/07/23 [History] Rivaroxaban 10 mg Tablet [Xarelto 10 mg Tablet] 2 tab PO HS 08/21/23 [History] Tirzepatide [Mounjaro] 10 mg SQ WEEKLY 08/21/23 [History] Hx Tetanus, Diphtheria Vaccination/Date Given: Yes Hx Influenza Vaccination/Date Given: (unknown) Hx Pneumococcal Vaccination/Date Given: Yes Travel Risk - International Travel Have you traveled outside of the country in past 3 weeks: No - Coronavirus Screening Are you exhibiting any of the following symptoms?: No Close contact with a COVID-19 positive Pt in past 14-21 Days: No - Vaccine Status Have you recieved a Covid-19 vaccination: Yes Net Washer: Unknown - Vaccination Dates Dates if Unknown: UNKOWN - Review of Systems Constitutional: No Symptoms Eyes: No Symptoms Ears, Nose, & Throat: No Symptoms Respiratory: No Symptoms Cardiac: No Symptoms Abdominal/Gastrointestinal: Abdominal Pain, Nausea Genitourinary Symptoms: No Symptoms Musculoskeletal: Arthralgias Skin: No Symptoms Neurological: No Symptoms Endocrine: No Symptoms Hematologic/Lymphatic: Easy Bleeding Immunological/Allergic: No Symptoms - Past Medical History Pertinent Past Medical History: Yes Neurological History: No Pertinent History ENT History: No Pertinent History Cardiac History: Arrhythmia, Coronary Artery Disease, High Cholesterol, Hypertension, Myocardial Infarction ([place]) Respiratory History: No Pertinent History Endocrine Medical History: Diabetes Type II Musculoskeletal History: Fractures GI Medical History: Gallbladder Disease History: No Pertinent History Psycho-Social History: No Pertinent History Female Reproductive Disorders: No Pertinent History Other Medical History: spot on your lung, hypokalemia, a-fib - Past Surgical History Past Surgical History: Yes Neuro Surgical History: No Pertinent History Cardiac: Cardiac Catheterization, Cardiac Stent, Internal Defibrillator, Pacemaker Respiratory: No Pertinent History Gastrointestinal: Cholecystectomy Genitourinary: No Pertinent History Musculoskeletal: Orthopedic Surgery Female Surgical History: Section, Tubal Ligation Other Surgical History: HEART CATH AND STENT IN MAY 2013, AICD, plate put in left femur due to fractured femur - Social History Smoking Status: Current every day smoker How long have you smoked: 46 yrs Exposure to second hand smoke: Yes Drug Use: none Patient Lives Alone: No - Nursing Vital Signs Nursing Vital Signs: Initial Vital Signs Pulse Rate 81 08/21/23 15:31 Respiratory Rate 19 08/21/23 15:31 Blood Pressure 122/70 08/21/23 15:31 O2 Sat by Pulse Oximetry 97 08/21/23 15:31 Pain Scale Pain Intensity 4 - Physical Exam General Appearance: no apparent distress, alert Eye Exam: PERRL/EOMI Ears, Nose, Throat Exam: normal ENT inspection Neck Exam: normal inspection, supple, full range of motion Respiratory Exam: normal breath sounds, lungs clear Cardiovascular Exam: regular rate/rhythm, normal heart sounds Gastrointestinal/Abdomen Exam: soft, normal bowel sounds, tenderness (Epigastric) Back Exam: normal inspection, normal range of motion Extremity Exam: normal inspection, normal range of motion Neurologic Exam: alert, oriented x 3, cooperative Skin Exam: normal color SpO2 Interpretation: normal SpO2: 97 O2 Delivery: Room Air - Course EKG Interpreted by Me: RATE (78), Sinus Rhythm, Left [place] Deviation, Q-wave, Non-specific ST Changes Ordered Tests: Active Orders 24 hr Category Date Time Status EKG-ER Only STAT Care 08/21/23 15:42 Completed IV Insertion STAT Care 08/21/23 15:42 Completed NPO (ED) STAT Care 08/21/23 15:42 Completed ABDOMEN AND PELVIS W/0 CONTRAS [CT] Stat Exams 08/21/23 15:43 Completed CBC W DIFF Stat Lab 08/21/23 15:45 Completed CMP Stat Lab 08/21/23 15:45 Completed LIPASE Stat Lab 08/21/23 15:45 Completed Lactic Acid Stat Lab 08/21/23 15:42 Completed TROPONIN Q4H Lab 08/21/23 15:45 Completed UA W/RFX UR CULTURE Stat Lab 08/21/23 16:18 Completed Medication Summary Discontinued Medications Generic Name Dose Route Start Last Admin Trade Name Wandy PRN Reason Stop Dose Admin Acetaminophen 975 mg 08/21/23 15:42 08/21/23 15:59 Acetaminophen 325 Mg Tablet PO 08/21/23 15:43 975 mg STAT ONE Administration Acetaminophen Confirm 08/21/23 15:56 Acetaminophen 325 Mg Tablet Administered 08/21/23 15:57 Dose 975 mg .ROUTE .STK-MED ONE Al Hydrox/Mg Hydrox/Simethicone Confirm 08/21/23 15:57 Mag Hydrox/Al Hydrox/Simeth 30 Ml Udcup Administered 08/21/23 15:58 Dose 30 ml .ROUTE .STK-MED ONE Lidocaine HCl Confirm 08/21/23 15:56 Lidocaine Hcl 2% Viscous 15 Ml Udcup Administered 08/21/23 15:57 Dose 15 ml .ROUTE .STK-MED ONE Magnesium Hydroxide 45 ml 08/21/23 15:44 08/21/23 16:01 Mag Hydrx/Alum Hyd/Simeth/Lido 45 Ml Bottle PO 08/21/23 15:45 45 ml STAT ONE Administration Ondansetron HCl 4 mg 08/21/23 15:42 08/21/23 16:04 Ondansetron Hcl 4 Mg/2 Ml Vial IV 08/21/23 15:43 4 mg STAT ONE Administration Ondansetron HCl Confirm 08/21/23 15:56 Ondansetron Hcl 4 Mg/2 Ml Vial Administered 08/21/23 15:57 Dose 4 mg .ROUTE .STK-MED ONE Pantoprazole Sodium 40 mg 08/21/23 15:42 08/21/23 16:07 Pantoprazole 40 Mg Vial IV 08/21/23 15:43 40 mg STAT ONE Administration Pantoprazole Sodium Confirm 08/21/23 15:56 Pantoprazole 40 Mg Vial Administered 08/21/23 15:57 Dose 40 mg IV .STK-MED ONE Lab/Rad Data: Laboratory Result Diagrams 08/21/23 15:45 08/21/23 15:45 Laboratory Results 08/21/23 08/21/23 08/21/23 Range/Units 16:18 15:45 15:45 WBC (4.0-10.5) x10^3/uL RBC (4.1-5.4) x10^6/uL Hgb (12.0-16.0) g/dL Hct (35-47) % MCV (78-100) fL MCH (26-32) pg MCHC (32-36) g/dL RDW (11.5-14.0) % Plt Count (150-450) x10^3/uL MPV (7.5-11.0) fL Gran % (36.0-66.0) % Immature Gran % (Auto) (0.00-0.4) % Nucleat RBC Rel Count (0.00-0.1) % Eos # (Auto) (0-0.5) x10^3/uL Immature Gran # (Auto) (0.00-0.03) x10^3u/L Absolute Lymphs (auto) (1.0-4.6) x10^3/uL Absolute Monos (auto) (0.0-1.3) x10^3/uL Absolute Nucleated RBC (0.00-0.01) x10^3u/L Lymphocytes % (24.0-44.0) % Monocytes % (0.0-12.0) % Eosinophils % (0.00-5.0) % Basophils % (0.0-0.4) % Absolute Granulocytes (1.4-6.9) x10^3/uL Basophils # (0-0.4) x10^3/uL Sodium 138 (137-145) mmol/L Potassium 4.2 (3.5-5.1) mmol/L Chloride 104 (98-107) mmol/L Carbon Dioxide 26 (22-30) mmol/L Anion Gap 12.7 (5-15) MEQ/L BUN 21 H (7-17) mg/dL Creatinine 0.93 (0.52-1.04) mg/dL Estimated GFR 72.6 ML/MIN Glucose 109 H (74-106) mg/dL Lactic Acid (0.4-2.0) Calcium 9.3 (8.4-10.2) mg/dL Total Bilirubin 0.70 (0.2-1.3) mg/dL AST 21 (14-36) U/L ALT 15 (0-35) U/L Alkaline Phosphatase 103 (38-126) U/L Troponin I < 0.012 (0.000-0.034) ng/mL Serum Total Protein 7.5 (6.3-8.2) g/dL Albumin 4.1 (3.5-5.0) g/dL Lipase 70 (23-300) U/L Urine Color Yellow (Yellow) Urine Appearance Clear (Clear) Urine pH 5.5 (4.6-8.0) Ur Specific [place] 1.010 (1.005-1.030) Urine Protein Negative (Negative) Urine Glucose (UA) >=1000 A (Negative) mg/dL Urine Ketones Negative (Negative) Urine Blood Negative (Negative) Urine Nitrite Negative (Negative) Urine Bilirubin Negative (Negative) Urine Urobilinogen 0.2 (0.2) mg/dL Ur Leukocyte Esterase Negative (Negative) U Hyaline Cast (Auto) NONE SEEN (0-2) /LPF Urine Microscopic RBC 0-2 (0-5) /HPF Urine Microscopic WBC 0-2 (0-5) /HPF Ur Epithelial Cells None Seen (None Seen) /HPF Urine Bacteria None Seen (None Seen) /HPF Urine Culture Reflexed NO (NO) 08/21/23 08/21/23 Range/Units 15:45 15:42 WBC 8.9 (4.0-10.5) x10^3/uL RBC 5.46 H (4.1-5.4) x10^6/uL Hgb 13.4 (12.0-16.0) g/dL Hct 44.1 (35-47) % MCV 80.8 (78-100) fL MCH 24.5 L (26-32) pg MCHC 30.4 L (32-36) g/dL RDW 19.1 H (11.5-14.0) % Plt Count 184 (150-450) x10^3/uL MPV 10.8 (7.5-11.0) fL Gran % 67.4 H (36.0-66.0) % Immature Gran % (Auto) 0.3 (0.00-0.4) % Nucleat RBC Rel Count 0.0 (0.00-0.1) % Eos # (Auto) 0.07 (0-0.5) x10^3/uL Immature Gran # (Auto) 0.03 (0.00-0.03) x10^3u/L Absolute Lymphs (auto) 2.26 (1.0-4.6) x10^3/uL Absolute Monos (auto) 0.53 (0.0-1.3) x10^3/uL Absolute Nucleated RBC 0.00 (0.00-0.01) x10^3u/L Lymphocytes % 25.3 (24.0-44.0) % Monocytes % 5.9 (0.0-12.0) % Eosinophils % 0.8 (0.00-5.0) % Basophils % 0.3 (0.0-0.4) % Absolute Granulocytes 6.01 (1.4-6.9) x10^3/uL Basophils # 0.03 (0-0.4) x10^3/uL Sodium (137-145) mmol/L Potassium (3.5-5.1) mmol/L Chloride (98-107) mmol/L Carbon Dioxide (22-30) mmol/L Anion Gap (5-15) MEQ/L BUN (7-17) mg/dL Creatinine (0.52-1.04) mg/dL Estimated GFR ML/MIN Glucose (74-106) mg/dL Lactic Acid 1.7 (0.4-2.0) Calcium (8.4-10.2) mg/dL Total Bilirubin (0.2-1.3) mg/dL AST (14-36) U/L ALT (0-35) U/L Alkaline Phosphatase (38-126) U/L Troponin I (0.000-0.034) ng/mL Serum Total Protein (6.3-8.2) g/dL Albumin (3.5-5.0) g/dL Lipase (23-300) U/L Urine Color (Yellow) Urine Appearance (Clear) Urine pH (4.6-8.0) Ur Specific [place] (1.005-1.030) Urine Protein (Negative) Urine Glucose (UA) (Negative) mg/dL Urine Ketones (Negative) Urine Blood (Negative) Urine Nitrite (Negative) Urine Bilirubin (Negative) Urine Urobilinogen (0.2) mg/dL Ur Leukocyte Esterase (Negative) U Hyaline Cast (Auto) (0-2) /LPF Urine Microscopic RBC (0-5) /HPF Urine Microscopic WBC (0-5) /HPF Ur Epithelial Cells (None Seen) /HPF Urine Bacteria (None Seen) /HPF Urine Culture Reflexed (NO) - Progress Progress: improved Progress Note: 08/21/23 17:05 53 years old is evaluated in ER for upper abdominal pain with nausea. Patient has no chest pain. EKG is normal sinus with no acute ischemic changes. She has old changes. She is given Protonix and GI cocktail and her pain is significantly improved. She declined any pain medication. Workup showed normal white count, fairly unremarkable chemistries including troponins. No UTI. CT abdomen pelvis is negative for any acute findings. I believe patient has GERD with esophagitis, I will start her on Protonix as Pepcid does not seem to be working well. Do not think she needs any other workup and is being discharged with outpatient follow-up. Counseled pt/family regarding: lab results, diagnosis, need for follow-up, rad results Medical Desision Making - Diagnostic Testing Diagnostic test were ordered, analyzed, and reviewed by me: Yes Radiological Interpretation: Reviewed by me - Risk of complications The pt has a mod risk of morbidity or mortality based on: Need for prescription drug management - Departure Departure Disposition: Home Clinical Impression: Epigastric pain, Gastritis Condition: Stable Critical Care Time: No Referrals: DESTINY MONSIVAIS [Primary Care Provider] - Follow up with PCP 1 day Instructions: Abdominal pain Additional Instructions: Take Tylenol as needed. Follow-up with primary care for 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 Return to ER for intractable pain/vomiting/fever chills etc. Prescriptions: PANTOPRAZOLE 40 mg Tablet [Protonix 40MG Tablet] 40 mg PO QAM #30 tab
[2023-08-21 16:19] LABS: ALBUMIN 4.1 g/dL (3.5-5.0); ALKALINE PHOSPHATASE 103 U/L (38-126); ANION GAP 12.7 MEQ/L (5-15); BLOOD UREA NITROGEN 21 mg/dL (7-17); CHLORIDE 104 mmol/L (98-107); Calcium 9.3 mg/dL (8.4-10.2); Carbon Dioxide 26 mmol/L (22-30); Creatinine 1 0.93 mg/dL (0.52-1.04); EST GLOMERULAR FILTRATION RATE 72.6 ML/MIN; Glucose 109 mg/dL (74-106); Potassium 4.2 mmol/L (3.5-5.1); SGOT/AST 21 U/L (14-36); SGPT/ALT 15 U/L (0-35); SODIUM 138 mmol/L (137-145); TROPONIN < 0.012 ng/mL (0.000-0.034); Total Protein 7.5 g/dL (6.3-8.2)
[2023-08-21 16:28] LABS: Appearance Clear (Clear); Bacteria None Seen /HPF (None Seen); Bilirubin Negative (Negative); Blood Negative (Negative); Epithelial Cells None Seen /HPF (None Seen); Glucose, Urine >=1000 mg/dL (Negative); Hyaline Casts NONE SEEN /LPF (0-2); Ketones Negative (Negative); Leukocyte Esterase Negative (Negative); Nitrite Negative (Negative); Ph 5.5 (4.6-8.0); Protein,Urine Dip Negative (Negative); RBC 0-2 /HPF (0-5); Urobilinogen 0.2 mg/dL (0.2); WBC 0-2 /HPF (0-5)
[2023-08-21 16:30] LABS: ADD URINE CULTURE? NO (NO)
--- NOTE | 2023-08-21 16:40 | XRAY ---
Indication: Left abdomen pain. Nausea. Multiple contiguous axial images obtained through the abdomen and pelvis without contrast. Comparison: July 07, 2023 Lung bases remain clear. Heart not enlarged. Noncontrasted stomach and bowel loops nonobstructed with normal appendix. Again 22 cm hepatomegaly, tiny bilateral renal cysts, hysterectomy, and cholecystectomy. No free fluid/air. Remaining liver, pancreas, spleen, adrenal glands, kidneys, ureters, and bladder are unremarkable for noncontrast exam. Stable minimal aortoiliac calcifications without AAA. Osseous structures intact again with osteopenia, mild degenerative changes throughout spine, and minimal dextroscoliosis. Impression: No change compared ER CT exam July 07, 2023. Chronic findings including hepatomegaly, bilateral renal cysts, arteriosclerotic disease, and chronic bony findings. No new/acute findings on this noncontrast exam.
[2023-08-21 16:52] LABS: Absolute Neutrophil Ct (ANC) 6.01 x10^3/uL (1.4-6.9); BASOPHIL % 0.3 % (0.0-0.4); Basophil (Absolute #) 0.03 x10^3/uL (0-0.4); Eosinophil % 0.8 % (0.00-5.0); Eosinophil (Absolute #) 0.07 x10^3/uL (0-0.5); Hematocrit 44.1 % (35-47); Hemoglobin 13.4 g/dL (12.0-16.0); IMMATURE GRAN # 0.03 x10^3u/L (0.00-0.03); IMMATURE GRAN % 0.3 % (0.00-0.4); Lymphocyte (Absolute #) 2.26 x10^3/uL (1.0-4.6); Lymphocytes % 25.3 % (24.0-44.0); Mean Cell Volume 80.8 fL (78-100); Mean Corpuscular Hemoglobin 24.5 pg (26-32); Mean Corpuscular Hgb Concent. 30.4 g/dL (32-36); Mean Platelet Volume 10.8 fL (7.5-11.0); Monocyte (Absolute #) 0.53 x10^3/uL (0.0-1.3); Monocytes % 5.9 % (0.0-12.0); Neutrophil % 67.4 % (36.0-66.0); Platelet Count 184 x10^3/uL (150-450); Red Blood Count 5.46 x10^6/uL (4.1-5.4); Red Cell Distribution Width 19.1 % (11.5-14.0); White Blood Count 8.9 x10^3/uL (4.0-10.5)
[2023-08-21 17:01] VITALS: BP 127/66; PULSE 76; RESP 20
== END 2023-08-21 18:20 | disposition home or self-care (01) ==
LOC: ED 15:09
DX: R10.13 Epigastric pain (principal); K29.70 Gastritis, unspecified, without bleeding; R11.0 Nausea; I10 Essential (primary) hypertension; E78.5 Hyperlipidemia, unspecified; E11.9 Type 2 diabetes mellitus without complications; Z79.01 Long term (current) use of anticoagulants; Z79.84 Long term (current) use of oral hypoglycemic drugs; Z79.02 Long term (current) use of antithrombotics/antiplatelets; Z79.4 Long term (current) use of insulin; Z79.85 Long-term (current) use of injectable non-insulin antidiabetic drugs; Z79.899 Other long term (current) drug therapy; Z72.0 Tobacco use
CPT/HCPCS: 36000; 36415; 74176; 80053; 81001; 83605; 83690; 84484; 85025; 93005; 96374; 96375; 99284; J2405; A9270-GY

== ENCOUNTER 2024-02-22 00:12 | Emergency (ER) | payer BC, OTHER ==
[2024-02-22 00:30] VITALS: RESP 20; TEMP 99.3
--- NOTE | 2024-02-22 00:31 | ERPHSYRPT ---
- History of Present Illness Time Seen by Provider: 02/22/24 00:30 Source: patient Exam Limitations: no limitations Patient Subjective Stated Complaint: right breast pain, swelling, redness, flaky skin. Triage Nursing Assessment: pt to ED c/o right breast pain, swelling, redness, and flaky skin. noticed when she woke up Friday morning. rates 8/10 pain that does not radiate. has roaches in home, hx of cysts. denies discharge from nipple. Physician History: The patient presents with a painful, red skin lesion that started on Friday. She woke up with the lesion and did not feel a bite or any other inciting event. The lesion has been progressively enlarging and is now associated with peeling skin. She denies any drainage, fever, or other systemic symptoms. The patient has a history of similar lesions in the past, which she describes as cysts. She has been managing the pain with hot compresses. She reports a normal mammogram 3 years ago. Timing/Duration: yesterday Quality: painful Severity: severe Location: other (right breast) Possible Causes: no cause identified Modifying Factors: Improves With: other (palpation worsens) Associated Symptoms: change in skin texture, swelling/mass/lumps, No fever Allergies/Adverse Reactions: aspirin Allergy (Mild, Verified 02/22/24 00:30) Sulfa (Sulfonamide Antibiotics) Allergy (Mild, Verified 02/22/24 00:30) shellfish derived Allergy (Verified 02/22/24 00:30) Itching rash Home Medications: Diltiazem HCl [Diltiazem 12Hr ER] 60 mg PO TID 12/11/17 [History] Gabapentin 100 mg PO BID 11/03/20 [History] Atorvastatin Calcium 80 mg PO DAILY 12/07/22 [History] Empagliflozin [Jardiance] 10 mg PO DAILY 12/07/22 [History] Famotidine 40 mg PO QHS 01/03/23 [History] Sacubitril/Valsartan [Entresto 24 mg-26 mg Tablet] 1 tab PO BID 01/03/23 [History] Albuterol Sulfate [Albuterol Sulfate Hfa] 2 puff PO Q4-6HPRN PRN 03/23/23 [History] Clopidogrel Bisulfate [PLAVIX Tablet] 75 mg PO DAILY 03/23/23 [History] Insulin Glargine,Hum.rec.anlog [Lantus] 46 unit SQ QHS 04/28/23 [History] Montelukast Sodium 10 mg PO DAILY 04/28/23 [History] carvediloL [Coreg] 25 mg PO DAILY 04/28/23 [History] Ascorbic Acid [Vitamin C] 1,000 mg PO DAILY 07/07/23 [History] Cetirizine HCl 10 mg PO DAILY 07/07/23 [History] Cholecalciferol (Vitamin D3) [Vitamin D3 Max] 50,000 unit PO WEEKLY 07/07/23 [History] Insulin Lispro [Humalog Kwikpen U-100] See Rx Instructions .ROUTE .COMPLEX 07/07/23 [History] Potassium Chloride Tab* [Klor Con] 10 meq PO BID 07/07/23 [History] Rivaroxaban 10 mg Tablet [Xarelto 10 mg Tablet] 2 tab PO HS 08/21/23 [History] Tirzepatide [Mounjaro] 10 mg SQ WEEKLY 08/21/23 [History] Hx Tetanus, Diphtheria Vaccination/Date Given: Yes Hx Influenza Vaccination/Date Given: Yes Hx Pneumococcal Vaccination/Date Given: Yes Travel Risk - International Travel Have you traveled outside of the country in past 3 weeks: No - Emerging Infectious Disease Are you exhibiting symptoms associated with any current EIDs: No - Review of Systems All Other Systems: Reviewed and Negative - Past Medical History Pertinent Past Medical History: Yes Neurological History: No Pertinent History ENT History: No Pertinent History Cardiac History: Arrhythmia, Coronary Artery Disease, High Cholesterol, Hypertension, Myocardial Infarction ([place]) Respiratory History: No Pertinent History Endocrine Medical History: Diabetes Type II Musculoskeletal History: Fractures GI Medical History: Gallbladder Disease History: No Pertinent History Psycho-Social History: No Pertinent History Female Reproductive Disorders: No Pertinent History Other Medical History: spot on your lung, hypokalemia, a-fib - Past Surgical History Past Surgical History: Yes Neuro Surgical History: No Pertinent History Cardiac: Cardiac Catheterization, Cardiac Stent, Internal Defibrillator, Pacemaker Respiratory: No Pertinent History Gastrointestinal: Cholecystectomy Genitourinary: No Pertinent History Musculoskeletal: Orthopedic Surgery Female Surgical History: Section, Tubal Ligation Other Surgical History: HEART CATH AND STENT IN MAY 2013, AICD, plate put in left femur due to fractured femur - Social History Smoking Status: Current every day smoker How long have you smoked: 8 yrs old Exposure to second hand smoke: Yes Drug Use: none Patient Lives Alone: No - Social Determinants of Health Will the patient participate in the screening: Yes Do you worry about a steady place to live?: Yes Do you have any problems with any of the following?: Pest (bugs,ants,or mice) In the past 12 months,have you had to go without utilities?: No Transportation Issues: No Has anyone in your support network made you feel unsafe?: No Have you or anyone in your house had to go without enough: No - Nursing Vital Signs Nursing Vital Signs: Initial Vital Signs Temperature 99.3 F 02/22/24 00:20 Pulse Rate 92 H 02/22/24 00:20 Respiratory Rate 20 02/22/24 00:20 Blood Pressure 133/69 02/22/24 00:20 O2 Sat by Pulse Oximetry 98 02/22/24 00:20 Pain Scale Pain Intensity 8 - Physical Exam General Appearance: mild distress, obese Skin Exam: other (right breast large area of erythema over entire lower inner quadrant, large, firm, tender mass underlying same area, no active drainage. ) SpO2 Interpretation: normal SpO2: 98 O2 Delivery: Room Air - Course Nursing assessment & vital signs reviewed: Yes Ordered Tests: Medication Summary Discontinued Medications Generic Name Dose Route Start Last Admin Trade Name Wandy PRN Reason Stop Dose Admin Doxycycline Hyclate 100 mg 02/22/24 01:12 02/22/24 01:20 Doxycycline Hyclate 100 Mg Tablet PO 02/22/24 01:13 100 mg STAT ONE Administration Doxycycline Hyclate Confirm 02/22/24 01:20 Doxycycline Hyclate 100 Mg Tablet Administered 02/22/24 01:21 Dose 100 mg .ROUTE .STK-MED ONE Tramadol HCl 50 mg 02/22/24 01:13 02/22/24 01:20 Tramadol Hcl 50 Mg Tablet PO 02/22/24 01:14 50 mg STAT ONE Administration Tramadol HCl Confirm 02/22/24 01:19 Tramadol Hcl 50 Mg Tablet Administered 02/22/24 01:20 Dose 50 mg .ROUTE .STK-MED ONE - Progress Progress: improved Progress Note: Patient was given doxycycline to cover empirically for MRSA. Ultrasound evaluation at bedside did show large abscess, but patient does not want to pro ceed with incision and drainage today and would prefer to follow-up with a female physician to have this performed. She was given tramadol to help with pain as she has multiple comorbidities that prevent her from taking nonsteroidal anti-inflammatories. Patient will be sent home encouraged to call Dr. Amairani Soria on Friday for evaluation for incision and drainage. She will also be sent home with a prescription for doxycycline 100 mg twice a day for 10 days as well as tramadol 50 mg as needed every 4 hours for the next 3 days. If pain worsens or fever develops please return for drainage. Counseled pt/family regarding: diagnosis, need for follow-up Medical Desision Making - Diagnostic Testing Diagnostic test were ordered, analyzed, and reviewed by me: No - Risk of complications The pt has a mod risk of morbidity or mortality based on: Need for prescription drug management - Departure Departure Disposition: Home Clinical Impression: Breast abscess Condition: Good Critical Care Time: No Referrals: DESTINY MONSIVAIS [Primary Care Provider] - Follow up/PCP as directed AMAIRANI SORIA MD [ACTIVE STAFF] - Follow up with PCP 1 day Instructions: Cancer screening Prescriptions: Doxycycline Monohydrate [Monodox] 100 mg PO BID 10 Days #20 cap Tramadol HCl 50 mg [Ultram 50 mg] 50 mg PO Q4H PRN #18 tablet PRN Reason: Pain
[2024-02-22] MEDS ORDERED: ULTRAM 50 MG ONE (01:19)
[2024-02-22] MEDS: Vibramycin 100 MG PO ONE (01:20)
[2024-02-22] MEDS: ULTRAM 50 MG PO ONE (01:20)
[2024-02-22] MEDS ORDERED: Vibramycin 100 MG ONE (01:20)
[2024-02-22 01:27] VITALS: BP 137/66; PULSE 82
[2024-02-22 01:34] VITALS: O2SAT 98
== END 2024-02-22 01:45 | disposition home or self-care (01) ==
LOC: ED 00:12
DX: N61.1 Abscess of the breast and nipple (principal); E78.5 Hyperlipidemia, unspecified; I10 Essential (primary) hypertension; E11.9 Type 2 diabetes mellitus without complications; Z79.84 Long term (current) use of oral hypoglycemic drugs; Z79.01 Long term (current) use of anticoagulants; Z79.4 Long term (current) use of insulin; Z79.85 Long-term (current) use of injectable non-insulin antidiabetic drugs; Z79.891 Long term (current) use of opiate analgesic; Z79.899 Other long term (current) drug therapy; Z72.0 Tobacco use; Z59.19 Other inadequate housing
CPT/HCPCS: 99282; A9270-GY

== ENCOUNTER 2024-03-29 00:28 | Emergency (ER) | payer BC, OTHER ==
[2024-03-29 00:47] VITALS: TEMP 97.8
--- NOTE | 2024-03-29 01:05 | ERPHSYRPT ---
- History of Present Illness Time Seen by Provider: 03/29/24 00:45 Source: patient Exam Limitations: no limitations Patient Subjective Stated Complaint: pt states she began to have a sharp pain to rt breast Triage Nursing Assessment: pt came into the er via wheelchair; pt transfer self to cot; pt is axo x3; c/o rt breast pain; pt states 7/10 pain to rt breast; pt denies trauma or injury to breast; no deformity present; skin PDW; no respiratory distress present; vitals wnl Physician History: This is a morbidly obese 53-year-old white female patient who presents to the emergency department with sudden onset of right breast pain that is localized. Patient was seen on 02/22/2024 for somewhat of a similar issue in the similar region. However, at that time she had a large cyst subcutaneously that ruptured. Today, she has the pain in the similar area but no palpable cyst per her report. The pain is very localized in the upper portion, medial aspect of her right breast. Patient had a normal mammogram 3 years ago (07/23/2021). I reviewed the report. Patient has never seen a ergonomics technician, breast disease specialist or infectious disease specialist. Since 02/22/2024 she has not seen her primary care provider for this condition. The patient has a history of atrial fibrillation and is taking diltiazem and Xarelto, she has a history of coronary disease and has an AICD pacemaker defibrillator in place and has had cardiac stents placed, she has hyperlipidemia, and hypertension. The pacemaker/defibrillator is on the left side of her chest. Patient states she did take a nitroglycerin prior to arrival but this did not improve her pain. Timing/Duration: today Quality: painful Severity: mild (To moderate) Location: other (Right breast) Possible Causes: no cause identified Associated Symptoms: denies symptoms Allergies/Adverse Reactions: aspirin Allergy (Mild, Verified 03/29/24 00:35) Sulfa (Sulfonamide Antibiotics) Allergy (Mild, Verified 03/29/24 00:35) shellfish derived Allergy (Verified 03/29/24 00:35) Itching rash Home Medications: dilTIAZem HCL [Diltiazem 12Hr ER] 60 mg PO TID 12/11/17 [History] Gabapentin 100 mg PO BID 11/03/20 [History] Atorvastatin Calcium 80 mg PO DAILY 12/07/22 [History] Empagliflozin [Jardiance] 10 mg PO DAILY 12/07/22 [History] Famotidine 40 mg PO QHS 01/03/23 [History] Sacubitril/Valsartan [Entresto 24 mg-26 mg Tablet] 1 tab PO BID 01/03/23 [History] Albuterol Sulfate [Albuterol Sulfate Hfa] 2 puff PO Q4-6HPRN PRN 03/23/23 [History] Clopidogrel Bisulfate [PLAVIX Tablet] 75 mg PO DAILY 03/23/23 [History] Insulin Glargine,Hum.rec.anlog [Lantus] 46 unit SQ QHS 04/28/23 [History] Montelukast Sodium 10 mg PO DAILY 04/28/23 [History] carvediloL [Coreg] 25 mg PO DAILY 04/28/23 [History] Ascorbic Acid [Vitamin C] 1,000 mg PO DAILY 07/07/23 [History] Cetirizine HCl 10 mg PO DAILY 07/07/23 [History] Cholecalciferol (Vitamin D3) [Vitamin D3 Max] 50,000 unit PO WEEKLY 07/07/23 [History] Insulin Lispro [Humalog Kwikpen U-100] See Rx Instructions .ROUTE .COMPLEX 07/07/23 [History] Potassium Chloride Tab* [Klor Con] 10 meq PO BID 07/07/23 [History] Rivaroxaban 10 mg Tablet [Xarelto 10 mg Tablet] 2 tab PO HS 08/21/23 [History] Tirzepatide [Mounjaro] 10 mg SQ WEEKLY 08/21/23 [History] Hx Tetanus, Diphtheria Vaccination/Date Given: No Hx Influenza Vaccination/Date Given: Yes Hx Pneumococcal Vaccination/Date Given: Yes Immunizations Up to Date: No Travel Risk - International Travel Have you traveled outside of the country in past 3 weeks: No - Emerging Infectious Disease Are you exhibiting symptoms associated with any current EIDs: No - Review of Systems Constitutional: No Symptoms Eyes: No Symptoms Ears, Nose, & Throat: No Symptoms Respiratory: No Symptoms Cardiac: No Symptoms Abdominal/Gastrointestinal: No Symptoms Musculoskeletal: No Symptoms Skin: Other (Localized pain right breast upper medial aspect.) Neurological: No Symptoms Psychological: No Symptoms Endocrine: No Symptoms Hematologic/Lymphatic: No Symptoms Immunological/Allergic: No Symptoms All Other Systems: Reviewed and Negative - Past Medical History Pertinent Past Medical History: Yes Neurological History: No Pertinent History ENT History: No Pertinent History Cardiac History: Arrhythmia, Coronary Artery Disease, High Cholesterol, Hypertension, Myocardial Infarction (HI) Respiratory History: No Pertinent History Endocrine Medical History: Diabetes Type II Musculoskeletal History: Fractures GI Medical History: Gallbladder Disease History: No Pertinent History Psycho-Social History: No Pertinent History Female Reproductive Disorders: No Pertinent History Other Medical History: spot on your lung, hypokalemia, a-fib - Past Surgical History Past Surgical History: Yes Neuro Surgical History: No Pertinent History Cardiac: Cardiac Catheterization, Cardiac Stent, Internal Defibrillator, Pacemaker Respiratory: No Pertinent History Gastrointestinal: Cholecystectomy Genitourinary: No Pertinent History Musculoskeletal: Orthopedic Surgery Female Surgical History: Section, Tubal Ligation Other Surgical History: HEART CATH AND STENT IN MAY 2013, AICD, plate put in left femur due to fractured femur - Social History Smoking Status: Current every day smoker How long have you smoked: 6 yrs old Exposure to second hand smoke: Yes Drug Use: none Patient Lives Alone: No - Social Determinants of Health Will the patient participate in the screening: Yes Do you worry about a steady place to live?: No Do you have any problems with any of the following?: No known problems In the past 12 months,have you had to go without utilities?: No Transportation Issues: No Has anyone in your support network made you feel unsafe?: No Have you or anyone in your house had to go without enough: No - Nursing Vital Signs Nursing Vital Signs: Initial Vital Signs Pulse Rate 80 03/29/24 00:35 Blood Pressure 129/86 03/29/24 00:35 O2 Sat by Pulse Oximetry 95 03/29/24 00:35 Pain Scale Pain Intensity [Right Chest] 7 Pain Intensity 7 - Physical Exam General Appearance: no apparent distress, alert, anxiety, obese Eye Exam: PERRL/EOMI, eyes nml inspection Ears, Nose, Throat Exam: normal ENT inspection, moist mucous membranes Neck Exam: normal inspection, non-tender, supple, full range of motion Respiratory Exam: normal breath sounds, lungs clear, airway intact, No chest tenderness, No respiratory distress Cardiovascular Exam: regular rate/rhythm, normal heart sounds, normal peripheral pulses Gastrointestinal/Abdomen Exam: soft, normal bowel sounds, No tenderness Pelvic Exam: not done Rectal Exam: not done Back Exam: normal inspection, normal range of motion, No CVA tenderness, No vertebral tenderness Extremity Exam: normal inspection, normal range of motion, pelvis stable Neurologic Exam: alert, oriented x 3, cooperative, data reviewer II-XII nml as tested, nml cerebellar function, nml station & gait, sensation nml Skin Exam: other (Denies tenderness upper medial aspect right breast without palpable subcutaneous mass. There are no skin changes to suggest a recurrent cyst or abscess) Lymphatic Exam: No adenopathy SpO2 Interpretation: normal SpO2: 94 O2 Delivery: Room Air - Course Nursing assessment & vital signs reviewed: Yes EKG Interpreted by Me: RATE (86), A-fib (A flutter), NORMAL AXIS, NORMAL INTERVALS, NORMAL QRS, Other (QTc 530. Patient has a history of atrial fibs/flutter. The comparison twelve-lead EKG dated 08/21/2023 shows a normal sinus rhythm LVH and anterior Q waves secondary to LVH which is persistent on today's twelve-lead EKG.) Ordered Tests: Active Orders 24 hr Category Date Time Status EKG-ER Only STAT Care 03/29/24 00:56 Active BMP Stat Lab 03/29/24 01:20 Completed CBC W DIFF Stat Lab 03/29/24 01:10 Completed MAG [MAGNESIUM] Stat Lab 03/29/24 01:57 Ordered TROPONIN Q4H Lab 03/29/24 01:20 Completed TROPONIN Q4H Lab 03/29/24 05:00 Ordered TROPONIN Q4H Lab 03/29/24 09:00 Ordered Medication Summary Discontinued Medications Generic Name Dose Route Start Last Admin Trade Name Wandy PRN Reason Stop Dose Admin Hydrocodone Bitart/Acetaminophen 2 tab 03/29/24 01:10 03/29/24 01:14 Hydrocodone/Apap 5/325 1 Tab Tablet PO 03/29/24 01:11 2 tab SENT HOME W/ PATIENT ONE Administration Hydrocodone Bitart/Acetaminophen Confirm 03/29/24 01:13 Hydrocodone/Apap 5/325 1 Tab Tablet Administered 03/29/24 01:14 Dose 2 tab .ROUTE .STK-MED ONE Cephalexin HCl 500 mg 03/29/24 01:10 03/29/24 01:14 Cephalexin Mh500 Mg Capsule PO 03/29/24 01:11 500 mg STAT ONE Administration Cephalexin HCl Confirm 03/29/24 01:13 Cephalexin 500 Mg Capsule Administered 03/29/24 01:14 Dose 500 mg .ROUTE .K-MED ONE Lab/Rad Data: Laboratory Result Diagrams 03/29/24 01:10 03/29/24 01:20 Laboratory Results 03/29/24 03/29/24 03/29/24 Range/Units 01:20 01:20 01:10 WBC 9.8 (3.98-10.04) x10^3/uL RBC 5.49 H (3.93-5.22) x10^6/uL Hgb 13.3 (11.2-15.7) g/dL Hct 42.8 (34.1-44.9) % MCV 78.0 L (79.4-94.8) fL MCH 24.2 L (25.6-32.2) pg MCHC 31.1 L (32.2-35.5) g/dL RDW 15.6 H (11.7-14.4) % Plt Count 194 (182-369) x10^3/uL MPV 10.8 (9.4-12.3) fL Gran % 78.8 H (34.0-71.1) % Immature Gran % (Auto) 0.3 (0.001-0.429) % Nucleat RBC Rel Count 0.0 (0.00-0.2) % Eos # (Auto) 0.06 (0.04-0.36) x10^3/uL Immature Gran # (Auto) 0.03 (0.001-0.031) x10^3u/L Absolute Lymphs (auto) 1.53 (1.18-3.74) x10^3/uL Absolute Monos (auto) 0.42 (0.24-0.86) x10^3/uL Absolute Nucleated RBC 0.00 (0.00-0.012) x10^3u/L Lymphocytes % 15.7 L (19.3-51.7) % Monocytes % 4.3 L (4.7-12.5) % Eosinophils % 0.6 L (0.7-5.8) % Basophils % 0.3 (0.1-1.2) % Absolute Granulocytes 7.69 H (1.56-6.13) x10^3/uL Basophils # 0.03 (0.01-0.08) x10^3/uL Sodium 140 (135-145) mmol/L Potassium 2.8 L* (3.5-5.1) mmol/L Chloride 103 (98-107) mmol/L Carbon Dioxide 26 (22-30) mmol/L Anion Gap 14.6 (5-15) MEQ/L BUN 11 (7-17) mg/dL Creatinine 0.93 (0.52-1.04) mg/dL Estimated GFR 72.6 ML/MIN Glucose 206 H (74-106) mg/dL Calcium 9.2 (8.4-10.2) mg/dL Troponin I < 0.012 (0.000-0.033) ng/mL - Progress Progress: pain not gone completely, re-examined Progress Note: 03/29/24 01:00 My medical decision making and the assignment of moderate complexity to this patient's medical issue today is based on review of the patient's past medical history, review of the patient's old twelve-lead EKG, review of the patient's old mammogram radiologist interpretation on 07/23/2021, medication list, review of the patient's drug allergy list, history present illness and physical findings on examination. The workup in this patient includes twelve-lead EKG, BMP, CBC and troponin level. Differential diagnosis includes but is not limited to muscle skeletal pain, right breast pain, myocardial infarction, arrhythmia, electrolyte abnormalities. I think this patient's medical issue today is not cardiac in origin. However she has significant history so we are checking these above studies. Patient has not seen breast disease specialist, her primary care provider or ergonomics technician for this particular complaint. Patient has a history of atrial fibrillation on diltiazem and Xarelto, coronary artery disease and has an AICD and place and has cardiac stents in place as well. She is morbidly obese and she has a history of hyperlipidemia and hypertension. 03/29/24 01:11 On will provide her with antibiotics to treat any underlying subcutaneous inflammation/infection. Doxycycline seem to help a month ago to resolve her symptoms. We will change the antibiotics. I will also provide her with #2 take-home Tiffin 5/325 tablets to help with pain control short-term. 03/29/24 01:57 I interpreted the patient's laboratory data results. Patient has a potassium 2.8. Patient is no longer taking potassium as they told her to stop it because of a different medication she is taking. However, I will remotely send a prescription for potassium 10 mill equivalents twice a day for 2 days only. Counseled pt/family regarding: lab results, diagnosis, need for follow-up Medical Desision Making - Diagnostic Testing Diagnostic test were ordered, analyzed, and reviewed by me: Yes - Risk of complications The pt has a mod risk of morbidity or mortality based on: Need for prescription drug management - Departure Departure Disposition: Home Clinical Impression: Breast pain, right, Hypokalemia Condition: Stable Critical Care Time: No Referrals: DESTINY MONSIVAIS [Primary Care Provider] - Follow up/PCP as directed Additional Instructions: Take all your medications as prescribed. Call your primary care provider later today, 03/29/2024, to make arrangements for a follow-up visit and to be seen within the next 5 to 7 days. Discussed with them the issue of recurrent right breast pain and possible referral to the ergonomics technician, breast disease specialist or infectious disease specialist. Prescriptions: Cephalexin Mh 500 mg [Keflex 500 mg] 500 mg PO TID #21 cap Potassium Chloride Tab* [Klor Con] 10 meq PO BID #5 tab
[2024-03-29] MEDS ORDERED: KEFLEX 500 MG ONE (01:13)
[2024-03-29] MEDS ORDERED: NORCO 5/325 MG ONE (01:13)
[2024-03-29] MEDS: NORCO 5/325 MG PO ONE (01:14)
[2024-03-29] MEDS: KEFLEX 500 MG PO ONE (01:14)
[2024-03-29 01:15] LABS: Absolute Neutrophil Ct (ANC) 7.69 x10^3/uL (1.56-6.13); BASOPHIL % 0.3 % (0.1-1.2); Basophil (Absolute #) 0.03 x10^3/uL (0.01-0.08); Eosinophil % 0.6 % (0.7-5.8); Eosinophil (Absolute #) 0.06 x10^3/uL (0.04-0.36); Hematocrit 42.8 % (34.1-44.9); Hemoglobin 13.3 g/dL (11.2-15.7); IMMATURE GRAN # 0.03 x10^3u/L (0.001-0.031); IMMATURE GRAN % 0.3 % (0.001-0.429); Lymphocyte (Absolute #) 1.53 x10^3/uL (1.18-3.74); Lymphocytes % 15.7 % (19.3-51.7); Mean Corpuscular Hemoglobin 24.2 pg (25.6-32.2); Mean Corpuscular Hgb Concent. 31.1 g/dL (32.2-35.5); Mean Platelet Volume 10.8 fL (9.4-12.3); Monocyte (Absolute #) 0.42 x10^3/uL (0.24-0.86); Monocytes % 4.3 % (4.7-12.5); Neutrophil % 78.8 % (34.0-71.1); Platelet Count 194 x10^3/uL (182-369); Red Blood Count 5.49 x10^6/uL (3.93-5.22); Red Cell Distribution Width 15.6 % (11.7-14.4); White Blood Count 9.8 x10^3/uL (3.98-10.04)
[2024-03-29 01:33] LABS: ANION GAP 14.6 MEQ/L (5-15); Calcium 9.2 mg/dL (8.4-10.2); Creatinine 1 0.93 mg/dL (0.52-1.04); EST GLOMERULAR FILTRATION RATE 72.6 ML/MIN
[2024-03-29 01:48] LABS: Potassium 2.8 mmol/L (3.5-5.1)
[2024-03-29] MEDS ORDERED: Klor Con ONE (02:01)
[2024-03-29] MEDS: Klor Con PO ONE (02:02)
[2024-03-29 02:21] VITALS: BP 126/78; PULSE 86; RESP 18; O2SAT 96
== END 2024-03-29 02:22 | disposition home or self-care (01) ==
LOC: ED 00:28
DX: N64.4 Mastodynia (principal); E87.6 Hypokalemia; E78.5 Hyperlipidemia, unspecified; I10 Essential (primary) hypertension; E11.9 Type 2 diabetes mellitus without complications; Z79.84 Long term (current) use of oral hypoglycemic drugs; Z79.02 Long term (current) use of antithrombotics/antiplatelets; Z79.4 Long term (current) use of insulin; Z79.85 Long-term (current) use of injectable non-insulin antidiabetic drugs; Z79.01 Long term (current) use of anticoagulants; Z72.0 Tobacco use
CPT/HCPCS: 36415; 80048; 83735; 84484; 85025; 93005; 99283; A9270-GY

== ENCOUNTER 2024-05-31 00:14 | Emergency (ER) | payer BC, OTHER ==
[2024-05-31 00:31] VITALS: TEMP 98.6; O2SAT 97
--- NOTE | 2024-05-31 01:02 | ERPHSYRPT ---
- History of Present Illness Time Seen by Provider: 05/31/24 00:50 Source: patient Exam Limitations: no limitations Patient Subjective Stated Complaint: Cough Triage Nursing Assessment: Patient brought back to ED per w/c and transferred self to bed. Patient A+O X 3. Patient's skin pink, warm and dry. Patient complains of non productive cough for the past 2 months. Patient also states she has a sore throat and has been exposed to COVID. Patient complains of sore throat /. Lungs diminished thoughout. Physician History: 53yo f presents via private vehicle for cough. Pt reports cough for the past several weeks, reports it is dry and non-productive. Pt reports hx of COPD. Pt also reports recent exposure to multiple COVID + individuals. Pt reports sore throat for the past week, chills that began today. Pt reports she has taken OTC cough medicines w/o significant relief. Pt reports significant cardiac hx, has pacemaker in place, on plavix. Timing/Duration: week(s) (3), constant, intermittent Cough Quality/Degree: mild, dry cough Possible Cause: chronic episodes Modifying Factors: Improves With: nothing Associated Symptoms: chills, cough, nasal congestion, nasal drainage, sore thro at, No fever, No headache, No shortness of breath Allergies/Adverse Reactions: aspirin Allergy (Mild, Verified 05/31/24 00:21) Sulfa (Sulfonamide Antibiotics) Allergy (Mild, Verified 05/31/24 00:21) shellfish derived Allergy (Verified 05/31/24 00:21) Itching rash Home Medications: dilTIAZem HCL [Diltiazem 12Hr ER] 60 mg PO TID 12/11/17 [History] Gabapentin 100 mg PO BID 11/03/20 [History] Atorvastatin Calcium 80 mg PO DAILY 12/07/22 [History] Empagliflozin [Jardiance] 10 mg PO DAILY 12/07/22 [History] Famotidine 40 mg PO QHS 01/03/23 [History] Sacubitril/Valsartan [Entresto 24 mg-26 mg Tablet] 1 tab PO BID 01/03/23 [History] Albuterol Sulfate [Albuterol Sulfate Hfa] 2 puff PO Q4-6HPRN PRN 03/23/23 [History] Clopidogrel Bisulfate [PLAVIX Tablet] 75 mg PO DAILY 03/23/23 [History] Insulin Glargine,Hum.rec.anlog [Lantus] 46 unit SQ QHS 04/28/23 [History] Montelukast Sodium 10 mg PO DAILY 04/28/23 [History] carvediloL [Coreg] 25 mg PO DAILY 04/28/23 [History] Ascorbic Acid [Vitamin C] 1,000 mg PO DAILY 07/07/23 [History] Cetirizine HCl 10 mg PO DAILY 07/07/23 [History] Cholecalciferol (Vitamin D3) [Vitamin D3 Max] 50,000 unit PO WEEKLY 07/07/23 [History] Insulin Lispro [Humalog Kwikpen U-100] See Rx Instructions .ROUTE .COMPLEX 07/07/23 [History] Potassium Chloride Tab* [Klor Con] 10 meq PO BID 07/07/23 [History] Rivaroxaban 10 mg Tablet [Xarelto 10 mg Tablet] 2 tab PO HS 08/21/23 [History] Tirzepatide [Mounjaro] 10 mg SQ WEEKLY 08/21/23 [History] Hx Tetanus, Diphtheria Vaccination/Date Given: No Hx Influenza Vaccination/Date Given: Yes Hx Pneumococcal Vaccination/Date Given: Yes Immunizations Up to Date: Yes Travel Risk - International Travel Have you traveled outside of the country in past 3 weeks: No - Emerging Infectious Disease Are you exhibiting symptoms associated with any current EIDs: No - Review of Systems Constitutional: Chills, No Fever, No Weakness Ears, Nose, & Throat: Nose Congestion, Sinus Drainage, Throat Pain, No Ear Pain, No Throat Swelling, No Painful Swallowing, No Stridor Respiratory: Cough, No Dyspnea, No Stridor, No Wheezing Cardiac: No Chest Pain, No Edema, No Syncope Abdominal/Gastrointestinal: No Symptoms - Past Medical History Pertinent Past Medical History: Yes Neurological History: No Pertinent History ENT History: No Pertinent History Cardiac History: Arrhythmia, Coronary Artery Disease, High Cholesterol, Hypertension, Myocardial Infarction ([place]) Respiratory History: No Pertinent History Endocrine Medical History: Diabetes Type II Musculoskeletal History: Fractures GI Medical History: Gallbladder Disease History: No Pertinent History Psycho-Social History: No Pertinent History Female Reproductive Disorders: No Pertinent History Other Medical History: spot on your lung, hypokalemia, a-fib - Past Surgical History Past Surgical History: Yes Neuro Surgical History: No Pertinent History Cardiac: Cardiac Catheterization, Cardiac Stent, Internal Defibrillator, Pacemaker Respiratory: No Pertinent History Gastrointestinal: Cholecystectomy Genitourinary: No Pertinent History Musculoskeletal: Orthopedic Surgery Female Surgical History: Section, Tubal Ligation Other Surgical History: HEART CATH AND STENT IN MAY 2013, AICD, plate put in left femur due to fractured femur - Social History Smoking Status: Current every day smoker How long have you smoked: 6 yrs old Exposure to second hand smoke: Yes Drug Use: none Patient Lives Alone: No - Social Determinants of Health Will the patient participate in the screening: Yes Do you worry about a steady place to live?: No Do you have any problems with any of the following?: No known problems In the past 12 months,have you had to go without utilities?: No Transportation Issues: No Has anyone in your support network made you feel unsafe?: No Have you or anyone in your house had to go without enough: No - Nursing Vital Signs Nursing Vital Signs: Initial Vital Signs Temperature 98.6 F 05/31/24 00:23 Pulse Rate 102 H 05/31/24 00:23 Respiratory Rate 18 05/31/24 00:23 Blood Pressure 136/70 05/31/24 00:23 O2 Sat by Pulse Oximetry 97 05/31/24 00:23 Pain Scale Pain Intensity 5 - Physical Exam General Appearance: no apparent distress, alert Ears, Nose, Throat Exam: normal ENT inspection, pharynx normal Respiratory Exam: normal breath sounds, airway intact, diminished breath sounds, No chest tenderness, No respiratory distress, No crackles/rales, No rhonchi, No wheezing, No stridor Cardiovascular Exam: regular rate/rhythm, normal heart sounds, normal peripheral pulses Gastrointestinal/Abdomen Exam: soft, No tenderness, No distention SpO2: 97 Ordered Tests: Active Orders 24 hr Category Date Time Status CHEST 1 VIEW (PORTABLE) Stat Exams 05/31/24 00:56 Taken CBC W DIFF Stat Lab 05/31/24 01:14 Completed CMP Stat Lab 05/31/24 01:14 Completed PROCALCITONIN Stat Lab 05/31/24 01:14 Completed Respiratory Therapy Assessment DAILY RT 05/31/24 01:12 Active Medication Summary Discontinued Medications Generic Name Dose Route Start Last Admin Trade Name Freq PRN Reason Stop Dose Admin Albuterol/Ipratropium 3 ml 05/31/24 01:04 05/31/24 01:12 Ipratropium/Albuterol Sulfate 3 Ml Ampul.Neb IH 05/31/24 01:05 3 ml STAT ONE Administration Albuterol/Ipratropium Confirm 05/31/24 01:10 Ipratropium/Albuterol Sulfate 3 Ml Ampul.Neb Administered 05/31/24 01:11 Dose 3 ml IH .STK-MED ONE Lab/Rad Data: Laboratory Result Diagrams 05/31/24 01:14 05/31/24 01:14 Laboratory Results 05/31/24 05/31/24 05/31/24 Range/Units 01:14 01:14 01:14 WBC 6.4 (3.98-10.04) x10^3/uL RBC 5.22 (3.93-5.22) x10^6/uL Hgb 12.2 (11.2-15.7) g/dL Hct 39.7 (34.1-44.9) % MCV 76.1 L (79.4-94.8) fL MCH 23.4 L (25.6-32.2) pg MCHC 30.7 L (32.2-35.5) g/dL RDW 17.6 H (11.7-14.4) % Plt Count 171 L (182-369) x10^3/uL MPV 10.7 (9.4-12.3) fL Gran % 78.9 H (34.0-71.1) % Immature Gran % (Auto) 0.3 (0.001-0.429) % Nucleat RBC Rel Count 0.0 (0.00-0.2) % Eos # (Auto) 0.10 (0.04-0.36) x10^3/uL Immature Gran # (Auto) 0.02 (0.001-0.031) x10^3u/L Absolute Lymphs (auto) 0.71 L (1.18-3.74) x10^3/uL Absolute Monos (auto) 0.50 (0.24-0.86) x10^3/uL Absolute Nucleated RBC 0.00 (0.00-0.012) x10^3u/L Lymphocytes % 11.1 L (19.3-51.7) % Monocytes % 7.8 (4.7-12.5) % Eosinophils % 1.6 (0.7-5.8) % Basophils % 0.3 (0.1-1.2) % Absolute Granulocytes 5.04 (1.56-6.13) x10^3/uL Basophils # 0.02 (0.01-0.08) x10^3/uL Sodium 137 (135-145) mmol/L Potassium 3.7 (3.5-5.1) mmol/L Chloride 103 (98-107) mmol/L Carbon Dioxide 24 (22-30) mmol/L Anion Gap 13.9 (5-15) MEQ/L BUN 22 H (7-17) mg/dL Creatinine 1.49 H (0.52-1.04) mg/dL Estimated GFR 41.2 ML/MIN Glucose 154 H (74-106) mg/dL Calcium 9.3 (8.4-10.2) mg/dL Total Bilirubin 0.40 (0.2-1.3) mg/dL AST 21 (14-36) U/L ALT 19 (0-35) U/L Alkaline Phosphatase 129 H (38-126) U/L Serum Total Protein 6.6 (6.3-8.2) g/dL Albumin 3.8 (3.5-5.0) g/dL Procalcitonin 0.070 (0.030-0.080) ng/mL Influenza Type A Ag (NEGATIVE) Influenza Type B Ag (NEGATIVE) RSV (PCR) (NEGATIVE) SARS-CoV-2 (PCR) (NEGATIVE) Group A Strep Antibody (NEGATIVE) 05/31/24 Range/Units 00:35 WBC (3.98-10.04) x10^3/uL RBC (3.93-5.22) x10^6/uL Hgb (11.2-15.7) g/dL Hct (34.1-44.9) % MCV (79.4-94.8) fL MCH (25.6-32.2) pg MCHC (32.2-35.5) g/dL RDW (11.7-14.4) % Plt Count (182-369) x10^3/uL MPV (9.4-12.3) fL Gran % (34.0-71.1) % Immature Gran % (Auto) (0.001-0.429) % Nucleat RBC Rel Count (0.00-0.2) % Eos # (Auto) (0.04-0.36) x10^3/uL Immature Gran # (Auto) (0.001-0.031) x10^3u/L Absolute Lymphs (auto) (1.18-3.74) x10^3/uL Absolute Monos (auto) (0.24-0.86) x10^3/uL Absolute Nucleated RBC (0.00-0.012) x10^3u/L Lymphocytes % (19.3-51.7) % Monocytes % (4.7-12.5) % Eosinophils % (0.7-5.8) % Basophils % (0.1-1.2) % Absolute Granulocytes (1.56-6.13) x10^3/uL Basophils # (0.01-0.08) x10^3/uL Sodium (135-145) mmol/L Potassium (3.5-5.1) mmol/L Chloride (98-107) mmol/L Carbon Dioxide (22-30) mmol/L Anion Gap (5-15) MEQ/L BUN (7-17) mg/dL Creatinine (0.52-1.04) mg/dL Estimated GFR ML/MIN Glucose (74-106) mg/dL Calcium (8.4-10.2) mg/dL Total Bilirubin (0.2-1.3) mg/dL AST (14-36) U/L ALT (0-35) U/L Alkaline Phosphatase (38-126) U/L Serum Total Protein (6.3-8.2) g/dL Albumin (3.5-5.0) g/dL Procalcitonin (0.030-0.080) ng/mL Influenza Type A Ag NEGATIVE (NEGATIVE) Influenza Type B Ag NEGATIVE (NEGATIVE) RSV (PCR) NEGATIVE (NEGATIVE) SARS-CoV-2 (PCR) POSITIVE A (NEGATIVE) Group A Strep Antibody NOT DETECTED (NEGATIVE) - Progress Progress: improved Air Movement: fair Progress Note: 05/31/24 01:36 covid + 05/31/24 01:52 pt reports significant improvement in breathing after duoneb paxlovid contraindicated in pt currently taking plavix plan for discharge home w/ recommendations for conservative symptom management will send duoneb treatments to pharmacy follow up this week w/ PCP (Negro) recommend oral hydration w/ clear liquids/electrolyte containing fluids recommend tylenol/ibuprofen for fevers/discomfort return to ED if: develop chest pain or shortness of breath, fevers do not respond to tylenol, develop difficulties tolerating oral intake Blood Culture(s) Obtained: No Antibiotics given: No Counseled pt/family regarding: lab results, diagnosis, need for follow-up, rad results Medical Desision Making - Diagnostic Testing Diagnostic test were ordered, analyzed, and reviewed by me: Yes Radiological Interpretation: Interpreted by me, Reviewed by me - Risk of complications Low Risk: Low risk of morbidity from additional dx testing or treatment - Departure Departure Disposition: Home Clinical Impression: COVID Condition: Stable Critical Care Time: No Referrals: DESTINY MONSIVAIS [Primary Care Provider] - Follow up/PCP as directed Additional Instructions: plan for discharge home w/ recommendations for conservative symptom management will send duoneb treatments to pharmacy follow up this week w/ PCP (Negro) recommend oral hydration w/ clear liquids/electrolyte containing fluids recommend tylenol/ibuprofen for fevers/discomfort return to ED if: develop chest pain or shortness of breath, fevers do not respond to tylenol, develop difficulties tolerating oral intake Prescriptions: Albuterol/Ipratropium 3ml Neb* [DUONEB 0.5-3 MG/3 ml Neb] 3 ml IH Q6HRT 4 Days #12 [facility] [place]
[2024-05-31 01:03] LABS: Group A Strep NOT DETECTED (NEGATIVE)
[2024-05-31] MEDS ORDERED: DUONEB 0.5-3 MG/3 ml Neb IH ONE (01:10)
[2024-05-31] MEDS: DUONEB 0.5-3 MG/3 ml Neb IH ONE (01:12)
[2024-05-31 01:14] LABS: INFLUENZA A NEGATIVE (NEGATIVE); INFLUENZA B NEGATIVE (NEGATIVE); RESPIRATORY SYNCTIAL VIRUS NEGATIVE (NEGATIVE)
[2024-05-31 01:16] LABS: Absolute Neutrophil Ct (ANC) 5.04 x10^3/uL (1.56-6.13); BASOPHIL % 0.3 % (0.1-1.2); Basophil (Absolute #) 0.02 x10^3/uL (0.01-0.08); Eosinophil % 1.6 % (0.7-5.8); Hematocrit 39.7 % (34.1-44.9); Hemoglobin 12.2 g/dL (11.2-15.7); IMMATURE GRAN # 0.02 x10^3u/L (0.001-0.031); IMMATURE GRAN % 0.3 % (0.001-0.429); Lymphocyte (Absolute #) 0.71 x10^3/uL (1.18-3.74); Lymphocytes % 11.1 % (19.3-51.7); Mean Cell Volume 76.1 fL (79.4-94.8); Mean Corpuscular Hemoglobin 23.4 pg (25.6-32.2); Mean Corpuscular Hgb Concent. 30.7 g/dL (32.2-35.5); Mean Platelet Volume 10.7 fL (9.4-12.3); Monocytes % 7.8 % (4.7-12.5); Neutrophil % 78.9 % (34.0-71.1); Platelet Count 171 x10^3/uL (182-369); Red Blood Count 5.22 x10^6/uL (3.93-5.22); Red Cell Distribution Width 17.6 % (11.7-14.4); White Blood Count 6.4 x10^3/uL (3.98-10.04)
[2024-05-31 01:18] LABS: SARS-CoV-2 Xpert Express POSITIVE (NEGATIVE)
[2024-05-31 01:36] LABS: ALBUMIN 3.8 g/dL (3.5-5.0); ANION GAP 13.9 MEQ/L (5-15); BILIRUBIN,TOTAL 0.4 mg/dL (0.2-1.3); Calcium 9.3 mg/dL (8.4-10.2); Creatinine 1 1.49 mg/dL (0.52-1.04); EST GLOMERULAR FILTRATION RATE 41.2 ML/MIN; Potassium 3.7 mmol/L (3.5-5.1); Total Protein 6.6 g/dL (6.3-8.2)
[2024-05-31 02:00] VITALS: BP 114/91; PULSE 82; RESP 20
--- NOTE | 2024-05-31 08:40 | XRAY ---
Indication: Cough. Comparison: May 07, 2023 Portable chest inflated and is now clear. Heart and mediastinal structures within normal limits again with left pacemaker. Bony thorax intact again with osteopenia and degenerative changes. Impression: Nonacute chest with chronic features.
== END 2024-05-31 02:07 | disposition home or self-care (01) ==
LOC: ED 00:14
DX: U07.1 COVID-19 (principal); R05.9 Cough, unspecified; J02.9 Acute pharyngitis, unspecified; R68.83 Chills (without fever); E78.5 Hyperlipidemia, unspecified; I10 Essential (primary) hypertension; E11.9 Type 2 diabetes mellitus without complications; Z79.84 Long term (current) use of oral hypoglycemic drugs; Z79.02 Long term (current) use of antithrombotics/antiplatelets; Z79.4 Long term (current) use of insulin; Z79.01 Long term (current) use of anticoagulants; Z79.85 Long-term (current) use of injectable non-insulin antidiabetic drugs; Z79.899 Other long term (current) drug therapy; Z72.0 Tobacco use
CPT/HCPCS: 0241U; 36415; 71045; 80053; 84145; 85025; 87651; 94640; 99283; A9270-GY